=== PATIENT | female | born 1990 | race American Indian/Alaskan Native ===

== ENCOUNTER 2016-07-29 18:13 | Emergency (ER) | payer SELFPAY ==
[2016-07-29 18:58] VITALS: BP 114/67
[2016-07-29 19:15] LABS: Basophils % (Auto) 0.6 % (0.0-1.8); Eosinophils % (Auto) 1.5 % (0.0-4.3); Hematocrit 32.3 % (30.3-42.9); Hemoglobin 10.7 gm/dl (10.1-14.3); Mean Corpuscular HGB Conc 33 % (30-34); Mean Corpuscular Hemoglobin 28 pg (28-32); Mean Corpuscular Volume 84 fl (79-97); Platelet Count 203 K/mm3 (140-440); Red Blood Count 3.85 M/mm3 (3.65-5.03); Red Cell Distribution Width 14.3 % (13.2-15.2); White Blood Count 6.9 K/mm3 (4.5-11.0)
[2016-07-29 19:44] LABS: Albumin 3.9 g/dL (3.9-5); Albumin/Globulin Ratio 1.2 %; Alkaline Phosphatase 53 units/L (35-129); Anion Gap 18 mmol/L; Blood Urea Nitrogen 7 mg/dL (7-17); Calcium 8.8 mg/dL (8.4-10.2); Carbon Dioxide 23 mmol/L (22-30); Chloride 98.9 mmol/L (98-107); Glucose 155 mg/dL (65-100); Lipase 16 units/L (13-60); Potassium 3.7 mmol/L (3.6-5.0); Sodium 136 mmol/L (137-145); Total Protein 7.2 g/dL (6.3-8.2)
[2016-07-29 19:47] LABS: Alanine Aminotransferase < 5 units/L (7-56)
--- NOTE | 2016-07-30 00:49 | Emergency Department Report ---
ED General Adult HPI - General Chief complaint: Abdominal Pain Stated complaint: ABD PAIN Source: patient, RN notes reviewed, old records reviewed Mode of arrival: Ambulatory Limitations: No Limitations - History of Present Illness Initial comments: This is a 25-year-old female. She is previously unknown to me. She does not have a local primary care doctor. She reports a past medical history of diabetes and sickle cell trait. She is 5, para 2. Last menstrual period is at the end of May. She thinks it is June 13. The patient presents to the ER with right lower back pain, intermittent suprapubic and left lower quadrant pain. This has been present for one week. The pain is achy. It increases with palpation and decreases with rest. No fevers or chills. No chest pain or shortness of breath. No irritative or obstructive urinary symptoms. No vaginal discharge. Positive constipation. She declines pain medication this time. She reports that her pain is "not so bad right now." She reports taking a positive home test. -: Gradual Location: back, abdomen Quality: aching Consistency: intermittent Improves with: rest Worsens with: movement Associated Symptoms: denies: confusion, chest pain, cough, diaphoresis, fever/ chills, headaches, loss of appetite, malaise, shortness of breath, syncope, weakness - Related Data Previous Rx's Medication Instructions Recorded Last Taken Type Insulin NPH/Regular [NovoLIN 70/30] 28 unit SUB-Q BIDDIAB #100 ml 03/17/1302/24 Rx Insulin Regular, Human [HumuLIN R] 0 unit SQ ACHS #100 ml 03/17/13 02/24/13 Rx Insulin NPH/Regular [NovoLIN 70/30] 35 unit SUB-Q QPMDIAB 30 Days 04/25/13 Unknown Rx Insulin NPH/Regular [NovoLIN 70/30] 42 unit SUB-Q QDDIAB 30 Days 04/25/13 Unknown Rx Doxylamine/Pyridoxine HCl 1 each PO QHS PRN #30 tablet. 07/30/16 Unknown Rx [Dicmax Null 10-10 mg Tablet] Nitrofurantoin Glasscock/M-Cryst 100 mg PO Q12HR #14 capsule 07/30/16 Unknown Rx [Macrobid CAP] Vit W-Ca,Fe,FA(<1 mg) 1 each PO QDAY #30 tablet 07/30/16 Unknown Rx [ Vitamins] Allergies Allergy/AdvReac Type Severity Reaction Status Date / Time No Known Allergies Allergy Verified 03/14/13 21:33 ED Review of Systems ROS: Stated complaint: ABD PAIN Other details as noted in HPI Constitutional: denies: fever Eyes: denies: vision change ENT: denies: epistaxis Respiratory: denies: cough Cardiovascular: denies: chest pain Gastrointestinal: abdominal pain Genitourinary: denies: urgency, dysuria Musculoskeletal: back pain Skin: denies: rash, lesions Neurological: denies: headache, weakness Psychiatric: denies: anxiety ED Past Medical Hx - Past Medical History Previous Medical History?: Yes Hx Hypertension: No Hx Heart Attack/AMI: No Hx Congestive Heart Failure: No Hx Diabetes: Yes (ran out of insulin) Hx Deep Vein Thrombosis: No Hx Pulmonary Embolism: No Hx GERD: No Hx Liver Disease: No Hx Renal Disease: No Hx Sickle Cell Disease: No (Sicle cell trait) Hx Arthritis: No Hx Headaches / Migraines: No Hx Seizures: No Hx Kidney Stones: No Hx Asthma: No Hx COPD: No Hx Tuberculosis: No Hx Dementia: No Hx HIV: No Additional medical history: sickle cell trait - Surgical History Past Surgical History?: Yes Hx Coronary Stent: No Hx Open Heart Surgery: No Hx Pacemaker: No Hx Internal Defibrillator: No Hx Cholecystectomy: No Hx Appendectomy: No Hx Breast Surgery: No Additional Surgical History: x2 - Social History Smoking Status: Never Smoker - Medications Home Medications: Home Medications Medication Instructions Recorded Confirmed Last Taken Type Insulin NPH/Regular [NovoLIN 70/30] 28 unit SUB-Q BIDDIAB #100 ml 03/17/1304/2102/24/13 Rx Insulin Regular, Human [HumuLIN R] 0 unit SQ ACHS #100 ml 03/17/13 04/21/1304/08 Rx Insulin NPH/Regular [NovoLIN 70/30] 35 unit SUB-Q QPMDIAB 30 Days 04/25/13 Unknown Rx Insulin NPH/Regular [NovoLIN 70/30] 42 unit SUB-Q QDDIAB 30 Days 04/25/13 Unknown Rx Doxylamine/Pyridoxine HCl 1 each PO QHS PRN #30 tablet. 07/30/16 Unknown Rx [Abelardo Null 10-10 mg Tablet] Nitrofurantoin Glasscock/M-Cryst 100 mg PO Q12HR #14 capsule 07/30/16 Unknown Rx [Macrobid CAP] Vit W-Ca,Fe,FA(<1 mg) 1 each PO QDAY #30 tablet 07/30/16 Unknown Rx [ Vitamins] ED Physical Exam - General Limitations: No Limitations General appearance: alert, in no apparent distress - Head Head exam: Present: atraumatic, normocephalic - Eye Eye exam: Present: normal appearance, EOMI. Absent: nystagmus - ENT ENT exam: Present: normal exam, normal orophraynx, mucous membranes moist, normal external ear exam - Neck Neck exam: Present: normal inspection, full ROM. Absent: tenderness, meningismus - Respiratory Respiratory exam: Present: normal lung sounds bilaterally. Absent: respiratory distress, wheezes, rales, rhonchi, stridor, chest wall tenderness, accessory muscle use, decreased breath sounds, prolonged expiratory - Cardiovascular Cardiovascular Exam: Present: regular rate, normal rhythm, normal heart sounds. Absent: bradycardia, tachycardia, irregular rhythm, systolic murmur, diastolic murmur, rubs, gallop - GI/Abdominal GI/Abdominal exam: Present: soft, normal bowel sounds, other (no rebound, guarding or peritoneal signs. Negative psoas sign, negative Rovsing sign). Absent: distended, tenderness, guarding, rebound, rigid, pulsatile mass - External exam: Present: normal external exam Speculum exam: Present: normal speculum exam Bi-manual exam: Present: normal bi-manual exam, other (escorted by CELESTINO Cortez) . Absent: cervical motion tendernes, adnexal tenderness, adnexal mass - Extremities Exam Extremities exam: Present: normal inspection, full ROM, normal capillary refill. Absent: tenderness, pedal edema, joint swelling, calf tenderness - Back Exam Back exam: Present: normal inspection, full ROM. Absent: tenderness, CVA tenderness (R), CVA tenderness (L), muscle spasm, paraspinal tenderness, vertebral tenderness - Neurological Exam Neurological exam: Present: alert, oriented X3, normal gait, other (Extraocular movements intact. Tongue midline. No facial droop. Facial sensation intact to light touch in the V1, V2, V3 distribution bilaterally. 5 and 5 strength in 4 extremities.. Sensation is intact to light touch in 4 extremities.). Absent : motor sensory deficit - Psychiatric Psychiatric exam: Present: normal affect, normal mood - Skin Skin exam: Present: warm, dry, intact, normal color. Absent: rash ED Course Vital Signs 07/29/16 18:55 Temperature 98.6 F Pulse Rate 66 Respiratory 18 Rate Blood Pressure 114/67 O2 Sat by Pulse 100 Oximetry - Reevaluation(s) Reevaluation #1: 07/30/16 01:04 differential diagnosis: , urinary tract infection, constipation, ovarian cyst Assessment and plan: The 25-year-old female who was incidentally found to be , with 1 week of nonspecific abdominal pain, there is no right lower quadrant tenderness, rebound or guarding, she is afebrile with reassuring vital signs, indicates that she is not wanting pain medicine at this time. Given all this, I think appendicitis or surgical emergency is very unlikely. My bedside ultrasound demonstrates a probable gestational sac. Her quantitative hCG is pending. Type and screen ordered, urinalysis pending, transvaginal ultrasound pending. Reevaluation #2: 07/30/16 01:53 Transvaginal ultrasound demonstrates intrauterine , no hemorrhages noted, therefore this patient does not require RhoGAM therapy. Patient feels okay, abdomen soft on repeat examination. Reevaluation #3: 07/30/16 02:03 urinalysis suggests urinary tract infection. Macrobid ordered. ED Medical Decision Making - Lab Data Result diagrams: 07/29/16 19:04 07/29/16 19:04 Vital Signs 07/29/16 18:55 Temperature 98.6 F Pulse Rate 66 Respiratory 18 Rate Blood Pressure 114/67 O2 Sat by Pulse 100 Oximetry Labs 07/29/16 07/29/16 07/29/16 19:04 19:04 19:04 WBC 6.9 RBC 3.85 Hgb 10.7 Hct 32.3 MCV 84 MCH 28 MCHC 33 RDW 14.3 Plt Count 203 Lymph % (Auto) 29.1 Glasscock % (Auto) 5.4 Eos % (Auto) 1.5 Baso % (Auto) 0.6 Lymph # 2.0 Glasscock # 0.4 Eos # 0.1 Baso # 0.0 Seg Neutrophils % 63.4 Seg Neutrophils # 4.4 Sodium 136 L Potassium 3.7 Chloride 98.9 Carbon Dioxide 23 Anion Gap 18 BUN 7 Creatinine 0.7 Estimated GFR > 60 BUN/Creatinine Ratio 10.00 Glucose 155 H Calcium 8.8 Total Bilirubin 0.50 AST 8 ALT < 5 L Alkaline Phosphatase 53 Total Protein 7.2 Albumin 3.9 Albumin/Globulin Ratio 1.2 Lipase 16 HCG, Qual Positive - Radiology Data Radiology results: report reviewed, image reviewed Transvaginal ultrasound demonstrates intrauterine , heartbeat 141 bpm, ovarian cyst noted, no obvious bleeding. Critical care attestation.: If time is entered above; I have spent that time in minutes in the direct care of this critically ill patient, excluding procedure time. ED Disposition Clinical Impression: Disposition: DISCHARGED TO HOME OR SELFCARE Is pt being admited?: No Does the pt Need Aspirin: No Condition: Stable Instructions: (ED) Additional Instructions: Take the medications as directed. Follow up with the any of the gynecology specialist within the next week to initiate care. Return to the ER right away with fevers or chills, chest pain or shortness of breath, intractable nausea or vomiting, inability to tolerate liquid feeds, new, worsening or different symptoms. Prescriptions: Doxylamine/Pyridoxine HCl [Abelardo Null 10-10 mg Tablet] 1 each PO QHS PRN #30 tablet. PRN Reason: Nausea Nitrofurantoin Glasscock/M-Cryst [Macrobid CAP] 100 mg PO Q12HR #14 capsule Vit W-Ca,Fe,FA(<1 mg) [ Vitamins] 1 each PO QDAY #30 tablet Referrals: PRIMARY [facility]EM[facility] [Primary Care Provider] - 3-5 Days [facility] [Provider Group] - 3-5 Days [facility] [Provider Group] - 3-5 Days [facility] [Provider Group] - 3-5 Days
--- NOTE | 2016-07-30 01:49 | Ultrasound Report ---
FINAL REPORT PROCEDURE: US OB TRANSVAGINAL TECHNIQUE: Real-time transabdominal and transvaginal sonography of the uterus, placenta, amniotic fluid, adnexa, and fetus was performed with image documentation. Measurements were obtained to determine age/size. M-mode Doppler was used to document heartbeat. CPT 99727 and 32359 HISTORY: abd pain COMPARISON: No prior studies are available for comparison. FINDINGS: ADDITIONAL GESTATION: None. CRL: 12 mm, which corresponds to a gestational age of: 7 weeks, 3 days. Yolk Sac: Normal. Embryonic Cardiac Activity: 141 beats per minute Gestational Sac: Normal. Amniotic fluid: Normal. Cervix: Normal. Right Ovary: Normal. Left Ovary: There is a dominant cyst measuring 2.4 centimeters Estimated delivery date: 03/15/2017 Uterus and adnexa: Normal. IMPRESSION: 1. Single live intrauterine gestation at approximately 7 weeks, 3 days. 2. EDC by US 03/15/2017 3. Complete anatomic survey at 18-20 weeks suggested.
--- NOTE | 2016-07-30 01:50 | Ultrasound Report ---
FINAL REPORT PROCEDURE: US OB transabdominal and transvaginal TECHNIQUE: Real-time transabdominal and transvaginal sonography of the uterus, placenta, amniotic fluid, adnexa, and fetus was performed with image documentation. Measurements were obtained to determine age/size. M-mode Doppler was used to document heartbeat. CPT 16083 and 07370 HISTORY: abd pain COMPARISON: No prior studies are available for comparison. FINDINGS: ADDITIONAL GESTATION: None. CRL: 12 mm, which corresponds to a gestational age of: 7 weeks, 3 days. Yolk Sac: Normal. Embryonic Cardiac Activity: 141 beats per minute Gestational Sac: Normal. Amniotic fluid: Normal. Cervix: Normal. Right Ovary: Normal. Left Ovary: There is a dominant cyst measuring 2.4 centimeters Estimated delivery date: 03/15/2017 Uterus and adnexa: Normal. IMPRESSION: 1. Single live intrauterine gestation at approximately 7 weeks, 3 days. 2. EDC by US 03/15/2017 3. Complete anatomic survey at 18-20 weeks suggested.
[2016-07-30 01:56] LABS: Bacteria,Urine 1+ /HPF (Negative); Bilirubin,Urine NEG (Negative); Blood,Urine NEG (Negative); Ketones,Urine NEG (Negative); Leukocyte Esterase,Urine MOD (Negative); Nitrite,Urine POS (Negative); Protein,Urine <15 mg/dL mg/dL (Negative); Urobilinogen,Urine < 2.0 mg/dL (<2.0)
== END 2016-07-30 02:21 | disposition home or self-care (01) ==
LOC: ED 18:13
DX: O26.891 Other specified pregnancy related conditions, first trimester (principal); M54.5 Low back pain; R10.32 Left lower quadrant pain; E11.9 Type 2 diabetes mellitus without complications; Z3A.01 Less than 8 weeks gestation of pregnancy; Z79.4 Long term (current) use of insulin
CPT/HCPCS: 36415; 76801; 76817; 80053; 81001; 83690; 84702; 84703; 85025; 86850; 86900; 86901

== ENCOUNTER 2016-08-18 13:26 | Emergency (ER) | payer SELFPAY ==
[2016-08-18 14:05] LABS: Basophils % (Auto) 0.3 % (0.0-1.8); Eosinophils % (Auto) 1.5 % (0.0-4.3); Hematocrit 30.3 % (30.3-42.9); Hemoglobin 10.4 gm/dl (10.1-14.3); Mean Corpuscular HGB Conc 34 % (30-34); Mean Corpuscular Hemoglobin 29 pg (28-32); Mean Corpuscular Volume 83 fl (79-97); Platelet Count 169 K/mm3 (140-440); Red Blood Count 3.64 M/mm3 (3.65-5.03); Red Cell Distribution Width 14.7 % (13.2-15.2); White Blood Count 7.6 K/mm3 (4.5-11.0)
[2016-08-18 14:21] LABS: Alanine Aminotransferase 6 units/L (7-56); Albumin 3.8 g/dL (3.9-5); Albumin/Globulin Ratio 1.1 %; Alkaline Phosphatase 44 units/L (35-129); Anion Gap 18 mmol/L; BUN/Creatinine Ratio 13.33; Blood Urea Nitrogen 8 mg/dL (7-17); Carbon Dioxide 21 mmol/L (22-30); Chloride 101.4 mmol/L (98-107); Glucose 162 mg/dL (65-100); Lipase 16 units/L (13-60); Potassium 3.6 mmol/L (3.6-5.0); Sodium 137 mmol/L (137-145); Total Protein 7.2 g/dL (6.3-8.2)
[2016-08-18 14:36] LABS: Bacteria,Urine 3+ /HPF (Negative); Bilirubin,Urine NEG (Negative); Blood,Urine NEG (Negative); Ketones,Urine TR mg/dL (Negative); Leukocyte Esterase,Urine SM (Negative); Mucus,Urine FEW /HPF; Nitrite,Urine NEG (Negative); Protein,Urine <15 mg/dL mg/dL (Negative)
--- NOTE | 2016-08-18 16:42 | Ultrasound Report ---
Transabdominal OB ultrasound. History: Nausea and vomiting. Findings: There is a single intrauterine with a crown-rump length measuring 3.3 cm corresponding to a gestational age of 10 weeks one day. The heart rate is 163 beats per minute. There is no evidence of subchorionic hemorrhage. The right ovary is normal. There is a 2.4 cm in diameter cyst within the left ovary. There is no fluid within the cul-de-sac. Impression: 1. Viable IUP at 10 weeks one day gestational age. 2. 2.4 cm left ovarian cyst.
--- NOTE | 2016-08-18 19:23 | Emergency Department Report ---
ED Female HPI - General Chief complaint: Vaginal Bleeding Stated complaint: PREG/HAVING SHARP PAINS Time Seen by Provider: 08/18/16 19:30 Source: patient, family Mode of arrival: Ambulatory Limitations: No Limitations - History of Present Illness Initial comments: Patient here complaining that approximately 2 months and complained of vaginal spotting on and off since last week she denies any spotting at present. Also complaining that she wasn't feeling well while at work since do that. Reports mid abdominal pain off and on times a few days. The vomiting diarrhea or fever. Denies care. [id number] medication taken. She reports urinary burning and frequency. Denies any vaginal discharge. MD Complaint: vaginal bleeding, dysuria, pelvic pain Onset/Timin -: week(s) Radiation: non-radiating Severity scale (0 -10): 0 Quality: cramping (she reports when she is having pain it's cramping pain) Consistency: intermittent Are you Now?: Yes Last Menstrual Period: 06/13/16 EDC: 03/20/17 Associated Symptoms: vaginal bleeding (off-and-on spotting), abdominal pain ( off and on), dysuria. denies: vaginal discharge, nausea/vomiting, fever/chills , headaches, loss of appetite, hematuria, rash, seizure, shortness of breath, syncope, weakness - Related Data Sexually active: Yes Previous Rx's Medication Instructions Recorded Last Taken Type Cephalexin [Keflex] 500 mg PO Q12HR #14 cap 08/18/16 Unknown Rx Vit-Fe Fumar-FA [ 1 tab PO QDAY #30 tablet 08/18/16 Unknown Rx Vitamin] metroNIDAZOLE [Flagyl] 500 mg PO Q12HR #14 tab 08/18/16 Unknown Rx Allergies Allergy/AdvReac Type Severity Reaction Status Date / Time No Known Allergies Allergy Verified 08/18/16 13:33 ED Review of Systems ROS: Stated complaint: PREG/HAVING SHARP PAINS Other details as noted in HPI Comment: All other systems reviewed and negative Constitutional: denies: chills, fever ENT: denies: throat pain Respiratory: no symptoms reported Cardiovascular: denies: chest pain, palpitations, edema, syncope Genitourinary: dysuria, frequency. denies: urgency, hematuria, discharge, dyspareunia Musculoskeletal: denies: back pain, arthralgia Skin: denies: rash Neurological: denies: headache, weakness, numbness, paresthesias, confusion, abnormal gait, vertigo ED Past Medical Hx - Past Medical History Previous Medical History?: Yes Hx Hypertension: No Hx Heart Attack/AMI: No Hx Congestive Heart Failure: No Hx Diabetes: Yes (bld sugar today is 168) Hx Deep Vein Thrombosis: No Hx Pulmonary Embolism: No Hx GERD: No Hx Liver Disease: No Hx Renal Disease: No Hx Sickle Cell Disease: No (Sickle cell trait) Hx Arthritis: No Hx Headaches / Migraines: No Hx Seizures: No Hx Kidney Stones: No Hx Asthma: No Hx COPD: No Hx Tuberculosis: No Hx Dementia: No Hx HIV: No Additional medical history: sickle cell trait - Surgical History Past Surgical History?: No Hx Coronary Stent: No Hx Open Heart Surgery: No Hx Pacemaker: No Hx Internal Defibrillator: No Hx Cholecystectomy: No Hx Appendectomy: No Hx Breast Surgery: No Additional Surgical History: x2 - Family History Family history: diabetes, hypertension - Social History Smoking Status: Never Smoker Substance Use Type: None - Medications Home Medications: Home Medications Medication Instructions Recorded Confirmed Last Taken Type Cephalexin [Keflex] 500 mg PO Q12HR #14 cap 08/18/16 Unknown Rx Vit-Fe Fumar-FA [ 1 tab PO QDAY #30 tablet 08/18/16 Unknown Rx Vitamin] metroNIDAZOLE [Flagyl] 500 mg PO Q12HR #14 tab 08/18/16 Unknown Rx ED Physical Exam - General Limitations: No Limitations General appearance: alert, in no apparent distress - Head Head exam: Present: atraumatic, normocephalic, normal inspection - Eye Eye exam: Present: normal appearance, PERRL, EOMI. Absent: periorbital swelling , periorbital tenderness Pupils: Present: normal accommodation - ENT ENT exam: Present: normal exam, normal orophraynx, mucous membranes moist, TM's normal bilaterally, normal external ear exam - Neck Neck exam: Present: normal inspection, full ROM. Absent: tenderness, meningismus, lymphadenopathy - Respiratory Respiratory exam: Present: normal lung sounds bilaterally. Absent: respiratory distress, chest wall tenderness - Cardiovascular Cardiovascular Exam: Present: regular rate, normal rhythm, normal heart sounds - GI/Abdominal GI/Abdominal exam: Present: soft, normal bowel sounds. Absent: distended, tenderness, guarding, rebound, rigid - External exam: Present: normal external exam. Absent: erythema, swelling, lesions, lacerations, ecchymosis, bleeding Speculum exam: Present: vaginal discharge, cervical discharge. Absent: erythema , vaginal bleeding, foreign body, tissue, laceration Bi-manual exam: Absent: cervical motion tendernes, adnexal tenderness, adnexal mass - Expanded Exam Expanded Female exam: Absent: vaginal laceration, tissue present in vagina, herpetic lesions, vulvar erythema, vulvar tenderness, foreign body External exam: Present: normal Amniotic fluid: Present: none Speculum exam: Present: cervical OS closed, vaginal discharge. Absent: vaginal bleeding - Extremities Exam Extremities exam: Present: normal inspection, full ROM, normal capillary refill. Absent: tenderness, pedal edema, joint swelling, calf tenderness - Back Exam Back exam: Present: normal inspection, full ROM. Absent: tenderness, CVA tenderness (R), CVA tenderness (L), muscle spasm, paraspinal tenderness, vertebral tenderness, rash noted - Neurological Exam Neurological exam: Present: alert, oriented X3, normal gait - Psychiatric Psychiatric exam: Present: normal affect, normal mood - Skin Skin exam: Present: warm, dry, intact, normal color. Absent: rash ED Course Vital Signs 08/18/16 13:39 Temperature 98.3 F Pulse Rate 81 Respiratory 17 Rate Blood Pressure 120/84 O2 Sat by Pulse 100 Oximetry Vital Signs 08/18/16 08/18/16 13:39 22:03 Temperature 98.3 F 98.3 F Pulse Rate 81 76 Respiratory 17 16 Rate Blood Pressure 120/84 Blood Pressure 103/64 [Left] O2 Sat by Pulse 100 98 Oximetry - Reevaluation(s) Reevaluation #1: 08/18/16 22:10 Pelvic exam done and wet prep showed the patient positive for Trichomonas and clue cells and negative for yeast. Chlamydia pending. Small bladder infection. Discussed case with patient and told her her results. Told her that she needs to tell her partner that she is treated for Trichomonas as he will also need to be tested and treated. Patient also up to be treated in emergency room for gonorrhea and chlamydia. Given Rocephin 1 g IM in emergency room to treat urinary tract infection and gonorrhea, also given a Zithromax by 1 g by mouth to treat chlamydia and will be discharged home with Flagyl. Reevaluation #2: 08/18/16 22:26 Patient tolerated up was used in the emergency room without any nausea or vomiting. ED Medical Decision Making - Lab Data Result diagrams: 08/18/16 13:45 08/18/16 13:45 Lab Results 08/18/16 08/18/16 08/18/16 Range/Units 13:36 13:45 13:45 WBC 7.6 (4.5-11.0) K/mm3 RBC 3.64 L (3.65-5.03) M/mm3 Hgb 10.4 (10.1-14.3) gm/dl Hct 30.3 (30.3-42.9) % MCV 83 (79-97) fl MCH 29 (28-32) pg MCHC 34 (30-34) % RDW 14.7 (13.2-15.2) % Plt Count 169 (140-440) K/mm3 Lymph % (Auto) 27.0 (13.4-35.0) % Dawson % (Auto) 6.3 (0.0-7.3) % Eos % (Auto) 1.5 (0.0-4.3) % Baso % (Auto) 0.3 (0.0-1.8) % Lymph # 2.1 (1.2-5.4) K/mm3 Dawson # 0.5 (0.0-0.8) K/mm3 Eos # 0.1 (0.0-0.4) K/mm3 Baso # 0.0 (0.0-0.1) K/mm3 Seg Neutrophils % 64.9 (40.0-70.0) % Seg Neutrophils # 4.9 (1.8-7.7) K/mm3 Sodium 137 (137-145) mmol/L Potassium 3.6 (3.6-5.0) mmol/L Chloride 101.4 (98-107) mmol/L Carbon Dioxide 21 L (22-30) mmol/L Anion Gap 18 mmol/L BUN 8 (7-17) mg/dL Creatinine 0.6 L (0.7-1.2) mg/dL Estimated GFR > 60 ml/min BUN/Creatinine Ratio 13.33 % Glucose 162 H (65-100) mg/dL POC Glucose 168 H (70-105) Calcium 9.0 (8.4-10.2) mg/dL Total Bilirubin 0.40 (0.1-1.2) mg/dL AST 10 (5-40) units/L ALT 6 L (7-56) units/L Alkaline Phosphatase 44 (35-129) units/L Total Protein 7.2 (6.3-8.2) g/dL Albumin 3.8 L (3.9-5) g/dL Albumin/Globulin Ratio 1.1 % Lipase 16 (13-60) units/L HCG, Quant (0-4) mIU/mL Urine Color (Yellow) Urine Turbidity (Clear) Urine pH (5.0-7.0) Ur Specific [place] (1.003-1.030) Urine Protein (Negative) mg/dL Urine Glucose (UA) (Negative) mg/dL Urine Ketones (Negative) mg/dL Urine Blood (Negative) Urine Nitrite (Negative) Urine Bilirubin (Negative) Urine Urobilinogen (<2.0) mg/dL Ur Leukocyte Esterase (Negative) Urine WBC (Auto) (0.0-6.0) /HPF Urine RBC (Auto) (0.0-6.0) /HPF Urine Bacteria (Auto) (Negative) /HPF Urine Mucus /HPF Blood Type Antibody Screen AURA Antibody Screen 08/18/16 08/18/16 08/18/16 Range/Units 13:45 13:45 14:08 WBC (4.5-11.0) K/mm3 RBC (3.65-5.03) M/mm3 Hgb (10.1-14.3) gm/dl Hct (30.3-42.9) % MCV (79-97) fl MCH (28-32) pg MCHC (30-34) % RDW (13.2-15.2) % Plt Count (140-440) K/mm3 Lymph % (Auto) (13.4-35.0) % Dawson % (Auto) (0.0-7.3) % Eos % (Auto) (0.0-4.3) % Baso % (Auto) (0.0-1.8) % Lymph # (1.2-5.4) K/mm3 Dawson # (0.0-0.8) K/mm3 Eos # (0.0-0.4) K/mm3 Baso # (0.0-0.1) K/mm3 Seg Neutrophils % (40.0-70.0) % Seg Neutrophils # (1.8-7.7) K/mm3 Sodium (137-145) mmol/L Potassium (3.6-5.0) mmol/L Chloride (98-107) mmol/L Carbon Dioxide (22-30) mmol/L Anion Gap mmol/L BUN (7-17) mg/dL Creatinine (0.7-1.2) mg/dL Estimated GFR ml/min BUN/Creatinine Ratio % Glucose (65-100) mg/dL POC Glucose (70-105) Calcium (8.4-10.2) mg/dL Total Bilirubin (0.1-1.2) mg/dL AST (5-40) units/L ALT (7-56) units/L Alkaline Phosphatase (35-129) units/L Total Protein (6.3-8.2) g/dL Albumin (3.9-5) g/dL Albumin/Globulin Ratio % Lipase (13-60) units/L HCG, Quant 44005 H (0-4) mIU/mL Urine Color Yellow (Yellow) Urine Turbidity Clear (Clear) Urine pH 6.0 (5.0-7.0) Ur Specific [place] 1.015 (1.003-1.030) Urine Protein <15 mg/dl (Negative) mg/dL Urine Glucose (UA) Neg (Negative) mg/dL Urine Ketones Tr (Negative) mg/dL Urine Blood Neg (Negative) Urine Nitrite Neg (Negative) Urine Bilirubin Neg (Negative) Urine Urobilinogen 4.0 (<2.0) mg/dL Ur Leukocyte Esterase Sm (Negative) Urine WBC (Auto) 22.0 H (0.0-6.0) /HPF Urine RBC (Auto) 5.0 (0.0-6.0) /HPF Urine Bacteria (Auto) 3+ (Negative) /HPF Urine Mucus Few /HPF Blood Type O POSITIVE Antibody Screen TNR AURA Antibody Screen Negative Urine culture pending Wet prep positive for Trichomonas and clue cells and negative for yeast Area and chlamydia is pending. - Radiology Data Radiology results: report reviewed OB ultrasound shows friable intrauterine at 10 weeks and 1 day gestational age. heart rate is at 163 bpm. There is no evidence of subchorionic hemorrhage. 2.4 cm left ovarian cyst. RT Ovaries normal. - Medical Decision Making ED course: I discussed ultrasound result with patient and told her that she needs to follow up with TERRITORY ACCOUNT REPRESENTATIVE and I will work her refer her to TERRITORY ACCOUNT REPRESENTATIVE . I also discussed with patient that she has a left ovarian cyst. I discussed the patient that her lab work was within normal limits and her urine shows that she has a small bladder infection which will be treated with antibiotic. I discussed with her that she is positive for Trichomonas and bacterial vaginosis and I also gave her the option to be treated empirically for gonorrhea and chlamydia and patient chose to be treated in emergency room. I discussed this case with Dr. Williamson and he is okay with patient being discharged home with Flagyl which will cover her bacterial vaginosis and Trichomonas. Given Rocephin 1 g IM in emergency room to treat urinary tract infection and gonorrhea , azithromycin 1 g by mouth to treat chlamydia. Patient discharged home with her significant other with prescription for Keflex to treat urinary tract infection and Flagyl to treat BV and Trichomonas. Catheter that she can call in the morning to schedule an appointment for follow-up visit with Lazara Galvan who is stone processing machine operator for T[employer] ACCOUNT REPRESENTATIVE. Patient voiced understanding of diagnosis and treatment plan and the need to follow-up. Discharge home with her significant other with prescription for Keflex, Flagyl and vitamin. Critical care attestation.: If time is entered above; I have spent that time in minutes in the direct care of this critically ill patient, excluding procedure time. ED Disposition Clinical Impression: Bacterial vaginosis, Acute cystitis without hematuria, Abdominal pain during in first trimester, Trichomonas infection, Concern about sexually transmitted disease in female without diagnosis, Threatened miscarriage in early , Vaginal spotting, Left ovarian cyst Disposition: DISCHARGED TO HOME OR SELFCARE Is pt being admited?: No Does the pt Need Aspirin: No Condition: Stable Instructions: Bacterial Vaginosis (ED), Urinary Tract Infection in Women (ED), Trichomoniasis (ED), Safe Sex (ED), Sexually Transmitted Diseases (ED), Abdominal Pain in (ED), Threatened Miscarriage (ED), Ovarian Cyst (ED ) Additional Instructions: Please call TERRITORY ACCOUNT REPRESENTATIVE's office in the morning to schedule an appointment. Take Medication as prescribed. remembered the tiny partner that you're treated for Trichomonas in the emergency room. These increase your fluid intake. Practice safe sex Prescriptions: Cephalexin [Keflex] 500 mg PO Q12HR #14 cap metroNIDAZOLE [Flagyl] 500 mg PO Q12HR #14 tab Vit-Fe Fumar-FA [ Vitamin] 1 tab PO QDAY #30 tablet Referrals: MARIAMA GALVAN MD [Staff Physician] - 08/19/16 Forms: STI Treatment and Prevention, Accompanied Note, Work/School Release Form (ED)
[2016-08-18] MEDS ORDERED: ROCEPHIN IM STA (21:34)
[2016-08-18] MEDS ORDERED: XYLOCAINE 1% MPF 5 mL INFILTRATI ONE (21:35)
[2016-08-18] MEDS ORDERED: ZITHROMAX PO ONE (21:35)
[2016-08-18 22:03] VITALS: BP 103/64
== END 2016-08-18 22:33 | disposition home or self-care (01) ==
LOC: ED 13:26
DX: O20.0 Threatened abortion (principal); O26.851 Spotting complicating pregnancy, first trimester; O98.311 Other infections with a predominantly sexual mode of transmission complicating pregnancy, first trimester; A59.01 Trichomonal vulvovaginitis; O23.11 Infections of bladder in pregnancy, first trimester; N30.00 Acute cystitis without hematuria; E11.9 Type 2 diabetes mellitus without complications; Z3A.10 10 weeks gestation of pregnancy
CPT/HCPCS: 36415; 76801; 76817; 80053; 81001; 82962; 83690; 84702; 85025; 86850; 86900; 86901; 87086; 87210; 87591; 96372; 99284; J0696; 87076; 87186

== ENCOUNTER 2016-09-22 23:19 | Emergency (ER) | payer SELFPAY ==
[2016-09-23 00:47] LABS: Basophils % (Auto) 0.5 % (0.0-1.8); Eosinophils % (Auto) 2.2 % (0.0-4.3); Hematocrit 29.6 % (30.3-42.9); Hemoglobin 9.8 gm/dl (10.1-14.3); Mean Corpuscular HGB Conc 33 % (30-34); Mean Corpuscular Hemoglobin 28 pg (28-32); Mean Corpuscular Volume 86 fl (79-97); Platelet Count 149 K/mm3 (140-440); Red Blood Count 3.45 M/mm3 (3.65-5.03); Red Cell Distribution Width 15.2 % (13.2-15.2); White Blood Count 6.6 K/mm3 (4.5-11.0)
[2016-09-23 01:10] LABS: Alanine Aminotransferase 7 units/L (7-56); Albumin 3.3 g/dL (3.9-5); Albumin/Globulin Ratio 1.1 %; Alkaline Phosphatase 39 units/L (35-129); Anion Gap 16 mmol/L; BUN/Creatinine Ratio 11.66; Blood Urea Nitrogen 7 mg/dL (7-17); Calcium 8.4 mg/dL (8.4-10.2); Carbon Dioxide 25 mmol/L (22-30); Chloride 103.7 mmol/L (98-107); Glucose 82 mg/dL (65-100); Potassium 3.3 mmol/L (3.6-5.0); Sodium 141 mmol/L (137-145); Total Protein 6.4 g/dL (6.3-8.2)
[2016-09-23 02:23] LABS: Bilirubin,Urine NEG (Negative); Blood,Urine NEG (Negative); Ketones,Urine NEG (Negative); Leukocyte Esterase,Urine SM (Negative); Nitrite,Urine NEG (Negative); Protein,Urine <15 mg/dL mg/dL (Negative)
[2016-09-23 03:58] VITALS: BP 116/62
--- NOTE | 2016-09-23 04:00 | Emergency Department Report ---
ED Abdominal Pain HPI - General Chief Complaint: Abdominal Pain Stated Complaint: ABD PAIN Time Seen by Provider: 09/23/16 03:53 Source: patient Mode of arrival: Ambulatory Limitations: No Limitations - History of Present Illness Initial Comments: Pt is a 25 yr old F with a h/o DM and sickle cell trait, at approximately 15 weeks gestation who presents with 1 day history of mild intermittent abdominal cramping and dysuria. Pt reports she takes vitamins, but does not have care due to lack of insurance. Pt was seen here 1 month prior for a similar event, and patient has still not followed up with a provider. Otherwise no fevers, chills, LINDSEY, NVD, CP, SOB, trauma, falls, hematuria, back pain, vaginal fluid loss, vaginal bleeding, travel, or sick contacts Severity scale (0 -10): 0 - Related Data Previous Rx's Medication Instructions Recorded Last Taken Type Vit-Fe Fumar-FA [ 1 tab PO QDAY #30 tablet 08/18/16 09/23/16 Rx Vitamin] Nitrofurantoin [place]/M-Cryst 100 mg PO Q12HR #14 capsule 09/23/16 Unknown Rx [Macrobid CAP] Allergies Allergy/AdvReac Type Severity Reaction Status Date / Time No Known Allergies Allergy Verified 08/18/16 13:33 ED Review of Systems ROS: Stated complaint: ABD PAIN Other details as noted in HPI Comment: All other systems reviewed and negative ED Past Medical Hx - Past Medical History Previous Medical History?: Yes Hx Hypertension: No Hx Heart Attack/AMI: No Hx Congestive Heart Failure: No Hx Diabetes: Yes (bld sugar today is 168) Hx Deep Vein Thrombosis: No Hx Pulmonary Embolism: No Hx GERD: No Hx Liver Disease: No Hx Renal Disease: No Hx Sickle Cell Disease: Yes (Sickle cell trait) Hx Arthritis: No Hx Headaches / Migraines: No Hx Seizures: No Hx Kidney Stones: No Hx Asthma: No Hx COPD: No Hx Tuberculosis: No Hx Dementia: No Hx HIV: No Additional medical history: sickle cell trait - Surgical History Past Surgical History?: Yes Hx Coronary Stent: No Hx Open Heart Surgery: No Hx Pacemaker: No Hx Internal Defibrillator: No Hx Cholecystectomy: No Hx Appendectomy: No Hx Breast Surgery: No Additional Surgical History: x2 - Social History Smoking Status: Never Smoker Substance Use Type: None - Medications Home Medications: Home Medications Medication Instructions Recorded Confirmed Last Taken Type Vit-Fe Fumar-FA [ 1 tab PO QDAY #30 tablet 08/18/16 09/23/16 Rx Vitamin] Nitrofurantoin [place]/M-Cryst 100 mg PO Q12HR #14 capsule 09/23/16 Unknown Rx [Macrobid CAP] ED Physical Exam - General Limitations: No Limitations General appearance: alert, in no apparent distress - Head Head exam: Present: atraumatic, normocephalic - Eye Eye exam: Present: normal appearance - ENT ENT exam: Present: mucous membranes moist - Neck Neck exam: Present: normal inspection - Respiratory Respiratory exam: Present: normal lung sounds bilaterally. Absent: respiratory distress - Cardiovascular Cardiovascular Exam: Present: regular rate, normal rhythm. Absent: systolic murmur, diastolic murmur, rubs, gallop - GI/Abdominal GI/Abdominal exam: Present: soft, normal bowel sounds. Absent: distended, tenderness, guarding, rebound, rigid - Extremities Exam Extremities exam: Present: normal inspection, full ROM. Absent: tenderness - Back Exam Back exam: Present: normal inspection, full ROM. Absent: tenderness, CVA tenderness (R), CVA tenderness (L) - Neurological Exam Neurological exam: Present: alert, oriented X3 - Psychiatric Psychiatric exam: Present: normal affect, normal mood - Skin Skin exam: Present: warm, dry, intact, normal color. Absent: rash ED Course Vital Signs 09/22/16 09/23/16 23:57 03:58 Temperature 99.0 F 98.7 F Pulse Rate 91 H 70 Respiratory 18 16 Rate Blood Pressure 125/73 Blood Pressure 116/62 [Left] O2 Sat by Pulse 99 100 Oximetry ED Medical Decision Making - Lab Data Result diagrams: 09/23/16 00:22 09/23/16 00:22 - Radiology Data Radiology results: report reviewed OB ultrasound: Single living intrauterine gestation approximately 15 weeks and 5 days - Medical Decision Making Patient was seen here 08/18/16 and had an US OB done which showed she was 10 weeks gestation Results discussed with patient and copy given to patient. Pt c/o dysuria with small leuk esterase and WBC 6 in urine will preemptively treat for UTI since patient is Critical care attestation.: If time is entered above; I have spent that time in minutes in the direct care of this critically ill patient, excluding procedure time. ED Disposition Clinical Impression: Abdominal pain during , Dysuria, UTI (lower urinary tract infection) Disposition: - TO HOME OR SELFCARE Is pt being admited?: No Condition: Stable Instructions: Abdominal Pain (ED), Dysuria (ED), Urinary Tract Infection in Women (ED) Prescriptions: Nitrofurantoin [place]/M-Cryst [Macrobid CAP] 100 mg PO Q12HR #14 capsule Referrals: PRIMARY CARE,MD [Primary Care Provider] - 3-5 Days
--- NOTE | 2016-09-23 08:04 | Ultrasound Report ---
FINAL REPORT PROCEDURE: Obstetrical ultrasound, transabdominal evaluation, transvaginal evaluation of the cervix. TECHNIQUE: Real-time limited sonographic examination was performed for evaluation of size, position, heartbeat, fluid volume for each fetus with image documentation (1 or more fetuses). CPT 25593 HISTORY: abd pain COMPARISON: No prior studies are available for comparison. FINDINGS: MATERNAL Uterus: Within normal limits . Cervix length: 4.9 cm. Internal Os: Closed . FETUS IUP: Single living intrauterine . Position: Transverse. Placental position: Posterior, without previa . Amniotic fluid volume: Normal . Heart rate and rhythm: 159 BPM, Regular . anatomic survey: Not performed on this study. MEASUREMENTS BPD: 2.9 centimeter. HC: 11.4 centimeter. AC: 9.6 centimeter. FL: 2 centimeter. Mean Gestational Age (composite criteria): 15 weeks 5 days. Ratio biometry: Normal . Estimated Weight: grams. Interval growth: Appropriate . Estimated Due Date (earliest scan): 03/12/2017. IMPRESSION: 1. Single living intrauterine gestation at approximately 15 weeks 5 days. 2. EDC by US 03/12/2017.
--- NOTE | 2016-09-23 08:08 | Ultrasound Report ---
FINAL REPORT PROCEDURE: Obstetrical ultrasound, transabdominal evaluation, transvaginal evaluation of the cervix. TECHNIQUE: Real-time limited sonographic examination was performed for evaluation of size, position, heartbeat, fluid volume for each fetus with image documentation (1 or more fetuses). CPT 85905 HISTORY: abd pain COMPARISON: No prior studies are available for comparison. FINDINGS: MATERNAL Uterus: Within normal limits . Cervix length: 4.9 cm. Internal Os: Closed . FETUS IUP: Single living intrauterine . Position: Transverse. Placental position: Posterior, without previa . Amniotic fluid volume: Normal . Heart rate and rhythm: 159 BPM, Regular . anatomic survey: Not performed on this study. MEASUREMENTS BPD: 2.9 centimeter. HC: 11.4 centimeter. AC: 9.6 centimeter. FL: 2 centimeter. Mean Gestational Age (composite criteria): 15 weeks 5 days. Ratio biometry: Normal . Estimated Weight: grams. Interval growth: Appropriate . Estimated Due Date (earliest scan): 03/12/2017. IMPRESSION: 1. Single living intrauterine gestation at approximately 15 weeks 5 days. 2. EDC by US 03/12/2017.
== END 2016-09-23 06:25 | disposition home or self-care (01) ==
LOC: ED 23:19
DX: O23.42 Unspecified infection of urinary tract in pregnancy, second trimester (principal); E11.9 Type 2 diabetes mellitus without complications; Z3A.15 15 weeks gestation of pregnancy
CPT/HCPCS: 36415; 76805; 76817; 80053; 81001; 84703; 85025; 99284

== ENCOUNTER 2017-02-18 23:36 | Outpatient (CLI) | payer SELFPAY ==
[2017-02-19] MEDS: LACTATED RINGERS 1,000 ML IV SCH ×2 (01:16→03:10)
[2017-02-19] MEDS: BRETHINE SUB-Q SCH ×3 (01:16→02:39)
[2017-02-19 03:24] LABS: Urine Drugs of Abuse Note Disclamer
[2017-02-19 03:37] LABS: Bacteria,Urine 2+ /HPF (Negative); Bilirubin,Urine NEG (Negative); Blood,Urine NEG (Negative); Ketones,Urine NEG (Negative); Leukocyte Esterase,Urine LG (Negative); Mucus,Urine 2+ /HPF; Nitrite,Urine NEG (Negative); Protein,Urine <15 mg/dL mg/dL (Negative)
[2017-02-19 04:03] VITALS: BP 109/70
== END 2017-02-19 06:16 | disposition home or self-care (01) ==
LOC: TRG 23:36
PROVIDERS: ATTEND Obstetrics & Gynecology
DX: O26.893 Other specified pregnancy related conditions, third trimester (principal); M54.9 Dorsalgia, unspecified; O47.1 False labor at or after 37 completed weeks of gestation; O24.313 Unspecified pre-existing diabetes mellitus in pregnancy, third trimester; E11.9 Type 2 diabetes mellitus without complications; Z3A.38 38 weeks gestation of pregnancy
CPT/HCPCS: 80307; 81001; 82962; 96360; 96361; 96372; J3105; J7120

== ENCOUNTER 2017-02-24 11:12 | Inpatient (IN) | payer OTHER ==
[2017-02-24] MEDS ORDERED: LACTATED RINGERS 1,000 ML IV ONE (15:08)
[2017-02-24 15:10] LABS: Basophils % (Auto) 0.6 % (0.0-1.8); Eosinophils % (Auto) 1.5 % (0.0-4.3); Hematocrit 28.4 % (30.3-42.9); Hemoglobin 9.5 gm/dl (10.1-14.3); Mean Corpuscular HGB Conc 33 % (30-34); Mean Corpuscular Hemoglobin 28 pg (28-32); Mean Corpuscular Volume 84 fl (79-97); Platelet Count 128 K/mm3 (140-440); Red Blood Count 3.39 M/mm3 (3.65-5.03); Red Cell Distribution Width 15.3 % (13.2-15.2); White Blood Count 5.1 K/mm3 (4.5-11.0)
[2017-02-24 15:52] LABS: HIV-1 Antigen p24 Non React (Non React); HIVR-1/2 Ab Non React (Non React)
--- NOTE | 2017-02-24 17:50 | History and Physical Report ---
History of Present Illness Date of examination: 02/24/17 Date of admission: 02/24/17 15:07 Chief complaint: Contractions History of present illness: Pt is a 26yo BF EDC 03/02/17; EGA 39 1/7 weeks presents to [facility] complaining of RUC's q 3-4 mins. She had 2 previous C Sections and desires a repeat C Section. She received late care in [place], but none here in [place], and is an IDDM taking Insulin NPH 42/ Reg 22 Q AM; and NPH 16/ Reg 16 Q PM Past History Past Medical History: diabetes (IDDM) Past Surgical History: section (x2) Family/Genetic History: none Social history: no significant social history - Obstetrical History Expected Date of Delivery: 03/02/17 Actual Gestation: 39 Week(s) 1 Day(s) : 5 Medications and Allergies Allergies Allergy/AdvReac Type Severity Reaction Status Date / Time No Known Allergies Allergy Verified 08/18/16 13:33 Home Medications Medication Instructions Recorded Confirmed Last Taken Type Vit-Fe Fumar-FA [ 1 tab PO QDAY #30 tablet 08/18/16 09/23/16 Rx Vitamin] Nitrofurantoin [place]/M-Cryst 100 mg PO Q12HR #14 capsule 09/23/16 Unknown Rx [Macrobid CAP] Ferrous Sulfate [Feosol 325 MG tab] 325 mg PO BID #60 tablet 02/24/17 Unknown Rx HYDROcodone/APAP 5-325 [[place]win 1 each PO Q6HR PRN #30 tablet 02/24/17 Unknown Rx 5/325] Ibuprofen [Motrin] 800 mg PO Q8HR PRN #30 tablet 02/24/17 Unknown Rx Vit Calc,Iron,Folic 1 each PO DAILY #30 tablet 02/24/17 Unknown Rx [ Vitamins] Review of Systems All systems: negative - Vital Signs Vital signs: Vital Signs Pulse Pulse Ox 65 100 02/24/17 11:21 02/24/17 11:21 Temp Pulse Resp BP Pulse Ox 98.2 F 74 18 99 02/24/17 11:34 02/24/17 12:38 02/24/17 11:34 02/24/17 12:38 - Physical Exam Breasts: Positive: deferred Cardiovascular: Regular rate Lungs: Positive: Clear to auscultation Abdomen: Positive: normal appearance Genitourinary (Female): Positive: normal external genitalia Uterus: Positive: enlarged Extremities: Positive: normal - Obstetrical FHR: category 1 Uterine Contraction Monitor Mode: External Results Result Diagrams: 02/24/17 14:50 Abnormal lab results 02/24/17 02/24/17 Range/Units 11:38 14:50 RBC 3.39 L (3.65-5.03) M/mm3 Hgb 9.5 L (10.1-14.3) gm/dl Hct 28.4 L (30.3-42.9) % RDW 15.3 H (13.2-15.2) % Plt Count 128 L (140-440) K/mm3 [place] % (Auto) 8.8 H (0.0-7.3) % POC Glucose 147 H (70-105) All other labs normal. Assessment and Plan - Patient Problems (1) 39 weeks gestation of Onset Date: 02/24/17 Current Visit: Yes Status: Acute Plan to address problem: A: IUP @ 39 1/7 weeks in labor Previous C Section x2 IDDM - stable Suspected macrosomia P: Admit to L&D for repeat C Section Obtain records and labs (2) Previous delivery affecting Onset Date: 02/24/17 Current Visit: Yes Status: Acute (3) Type 2 diabetes mellitus Onset Date: 02/24/17 Current Visit: No Status: Acute Qualifiers: Diabetes mellitus complication status: without complication Diabetes mellitus residential insulin use: with terminal system operator use Qualified Code(s): E11.9 - Type 2 diabetes mellitus without complications; Z79.4 - [facility] (current) use of insulin; Z79.4 - terminal system operator (current) use of insulin; Z79.4 - [facility] ( current) use of insulin; Z79.4 - [facility] (current) use of insulin
[2017-02-24] MEDS ORDERED: PEPCID IV ONE (17:51)
[2017-02-24] MEDS ORDERED: BICITRA PO ONE (17:51)
[2017-02-24] MEDS ORDERED: REGLAN IV ONE (17:51)
[2017-02-24] MEDS ORDERED: MORPHINE IV PRN (17:54)
[2017-02-24] MEDS ORDERED: PHENERGAN PO PRN (17:54)
[2017-02-24] MEDS ORDERED: PHENERGAN PR PRN (17:54)
[2017-02-24] MEDS ORDERED: NARCAN 0.4 MG/1 ML IV PRN ×2 (17:54→19:26)
[2017-02-24] MEDS ORDERED: ZOFRAN IV PRN (17:54)
--- NOTE | 2017-02-24 17:54 | Anesthesia Consultation ---
Anesthesia Consult and Med Hx Date of service: 02/24/17 - Airway Anesthetic Teeth Evaluation: Good ROM Head & Neck: Adequate Mental/Hyoid Distance: Adequate Mallampati Class: Class II Intubation Access Assessment: Good - Pulmonary Exam CTA: Yes - Cardiac Exam Cardiac Exam: No Murmur - Pre-Operative Health Status ASA Pre-Surgery Classification: ASA2 Proposed Anesthetic Plan: Epidural - Pulmonary Hx Smoking: No Hx Asthma: No SOB: No COPD: No Hx Pneumonia: No Hx Sleep Apnea: No - Cardiovascular System Hx Hypertension: No Hx Coronary Artery Disease: No Hx Heart Attack/AMI: No Hx Angina: No Hx Percutaneous Transluminal Coronary Angioplasty (PTCA): No Hx Pacemaker: No Hx Internal Defibrillator: No Hx Valvular Heart Disease: No Hx Heart Murmur: No Hx Peripheral Vascular Disease: No - Central Nervous System Hx Seizures: No CVA: No Hx Back Pain: No Hx Psychiatric Problems: No - Gastrointestinal Hx Ulcer: No - Endocrine Hx Renal Disease: No Hx End Stage Renal Disease: No Hx Cirrhosis: No Hx Liver Disease: No Hx Hypothyroidism: No Hx Hyperthyroidism: No - Hematic Hx Anemia: No Hx Sickle Cell Disease: Yes (trait) - Other Systems Hx Alcohol Use: No Hx Substance Use: No Hx Cancer: No Hx Obesity: No
[2017-02-24] MEDS ORDERED: MORPHINE ONE (17:59)
[2017-02-24] MEDS ORDERED: LACTATED RINGERS 1,000 ML IV SCH (18:00)
[2017-02-24] MEDS ORDERED: PITOCin/NS 20 UNIT/1000ML DRIP 20 UNITS/1,000 ML BAG IV SCH ×2 (18:00→20:00)
[2017-02-24] MEDS ORDERED: fentaNYL-BUPIV 2 MCG/ML-0.125% 200 MCG/100 ML BAG EPIDURAL SCH (18:00)
[2017-02-24] MEDS ORDERED: SODIUM CHLORIDE FLUSH SYRINGE 10 ML IV NR ×2 (18:00→20:00)
[2017-02-24] MEDS ORDERED: ANCEF/STERILE WATER 2 GM/20 ML 2 GM/20 ML SYRINGE IV NR (18:00)
[2017-02-24] MEDS ORDERED: NACL 0.9% IR ONE (18:05)
[2017-02-24] MEDS ORDERED: WATER FOR IRRIG STERILE IR ONE (18:05)
[2017-02-24] MEDS ORDERED: TORADOL ONE (18:39)
[2017-02-24] MEDS ORDERED: NEO SYNEPHRINE ONE (18:41)
--- NOTE | 2017-02-24 19:22 | Operative Report ---
Operative Report Operative Report: Date of procedure: 02/24/2017 Pre-operative diagnosis: 1. Intrauterine at 39-1/7 weeks in labor 2. Previous 2 3. Insulin-dependent diabetes mellitus 4. Suspected macrosomia 5. Insufficient care Post-operative diagnosis: Same Procedure name(s): Repeat low transverse section Surgeon: Derian Galvan MD Scheduling Clerk: None Anesthesia: Spinal anesthesia by a Dr. Gray EBL: 600 mL's Findings: A 5163 g male infant Apgars 6 at 1 minute and 8 at 5 minutes. Clear amniotic fluid. Normal uterus. Normal tubes and ovaries bilaterally. Procedure: After the patient was prepped and draped in usual sterile fashion, and after satisfactory level of epidural anesthesia was obtained, the skin knife was used to make a transverse skin incision through the previous skin scars. The incision was excised down to layer of the fascia, which was nicked in the midline and extended laterally using the Bovie cautery. The rectus muscles were dissected off the rectus fascia both superiorly and inferiorly. The rectus bellies in the midline, and the peritoneum was entered under direct visualization. The peritoneal incision was extended superiorly and inferiorly. A bladder flap was created and the bladder blade was then placed. The uterus was scored in a curvilinear linear fashion, entered in the midline revealing copious clear amniotic fluid. The 's head was delivered onto the surgical field, and the oropharynx and nasopharynx were bulb suctioned. The rest of the 's body was delivered, cord was doubly clamped and cut and the infant was handed to the waiting respiratory team. Cord blood was then obtained. The placenta was manually removed from the uterus , and the uterus removed from its normal anatomical position. After gentle uterine lavage, the incision was inspected and found to be without extensions. It was then closed in 2 layers using 0 Vicryl suture in a running interlocking fashion, the second layer imbricating the first. After good hemostasis was achieved, copious amounts or irrigation was performed, and the gutters were suctioned free of blood and blood clots. The Tisseel sealant was sprayed across the uterine incision. The uterus was then returned to its normal anatomical position, and after excellent hemostasis assured, the peritoneum was re-approximated using 3-0 Vicryl suture in a running interlocking fashion, and then the rectus muscles were re-approximated using 3-0 Vicryl suture in a figure -of-eight configuration. The fascia was then re-approximated using 0 Vicryl suture in running interlocking fashion. The subcutaneous layer was made hemostatic using Bovie cautery, the Tisseel sealant was sprayed across the fascial incision and the skin edges re-approximated using 4-0 Vicryl suture in a sub-cuticular fashion. Patient tolerated the procedure well was transported to recovery in stable condition.
[2017-02-24] MEDS ORDERED: SENOKOT PO PRN (19:26)
[2017-02-24] MEDS ORDERED: TYLENOL PO PRN (19:26)
[2017-02-24] MEDS ORDERED: MYLICON PO PRN (19:26)
[2017-02-24] MEDS ORDERED: TORADOL IV PRN (19:26)
[2017-02-24] MEDS ORDERED: TUCKS PAD TP PRN (19:26)
[2017-02-24] MEDS ORDERED: MILK OF MAGNESIA PO PRN (19:26)
[2017-02-24] MEDS ORDERED: NORCO 5/325 PO PRN (19:26)
[2017-02-24] MEDS ORDERED: D50W (25GM) Syringe IV PRN (19:33)
[2017-02-24] MEDS ORDERED: ceFAZolin 1 GM in NACL 0.9% 20 ML IV SCH (20:00)
[2017-02-24] MEDS ORDERED: ANCEF/NS 1 GM/50 ML 1 GM/50 ML BAG IV SCH (20:00)
[2017-02-24] MEDS ORDERED: D5LR 1,000 ML IV SCH (20:00)
[2017-02-25] MEDS ORDERED: ceFAZolin 1 GM in NACL 0.9% 20 ML IV SCH ×2 (02:00→08:00)
[2017-02-25 06:30] LABS: Hematocrit 26.1 % (30.3-42.9); Hemoglobin 8.7 gm/dl (10.1-14.3)
[2017-02-25] MEDS: BENADRYL PO PRN ×2 (09:33→17:17)
--- NOTE | 2017-02-25 12:40 | Progress Note ---
Assessment and Plan A: /postop day 1 S/P low transverse section. Anemia. P: Advance diet as tolerated. Supplement with iron. Encourage ambulation. Subjective - Subjective Date of service: 02/25/17 Principal diagnosis: /postop day 1 S/P delivery Interval history: Patient is doing well. Baby is in NICU for blood sugars. Patient has had Carty catheter removed. She has not yet been up to ambulate. Patient reports small amount of lochia with no large clots. Patient denies headache, chest pain, cough , shortness of breath, abdominal pain, leg pain, heavy vaginal bleeding, or any other problems. She has not passed gas yet. Patient reports: appetite normal, voiding normally, pain well controlled, no flatus, no nauseated : doing well, in NICU Objective - Vital Signs Latest vital signs: Vital Signs Temp Pulse Resp BP BP Pulse Ox 02/25/17 10:20 98.7 F 61 18 103/66 97 02/25/17 05:05 18 02/25/17 04:00 98.3 F 57 L 17 119/79 100 02/25/17 00:48 97.9 F 59 L 17 95/59 100 02/25/17 00:10 97.5 F L 50 L 18 94/57 100 02/24/17 21:25 97.5 F L 50 L 18 94/57 100 02/24/17 20:30 54 L 11 L 120/75 100 02/24/17 20:20 52 L 22 123/72 100 02/24/17 20:15 55 L 22 114/75 100 02/24/17 20:10 62 21 124/59 100 02/24/17 20:00 53 L 15 112/68 100 02/24/17 19:50 54 L 15 110/69 100 02/24/17 19:45 57 L 16 116/72 100 02/24/17 19:40 54 L 14 116/70 100 02/24/17 19:30 53 L 15 111/69 100 02/24/17 19:25 55 L 17 120/75 100 02/24/17 19:22 97.7 F 59 L 15 110/76 98 02/24/17 19:20 11 L 100 02/24/17 12:38 74 99 Intake and Output 02/24/17 02/25/17 02/25/17 23:59 07:59 15:59 Intake Total 1300 150 Output Total 900 200 Balance 400 -50 Intake: IV 1300 Intake, Free Water 150 Output: Urine 900 Uretheral (Carty) 300 Stool 200 Other: Total, Output Amount 200 Estimated Blood Loss 600 - Exam Cardiovascular: Present: Regular rate, Normal S1, Normal S2 Lungs: Present: Clear to auscultation Abdomen: Present: normal appearance, soft, normal bowel sounds. Absent: distention, tenderness, guarding, rigidity Uterus: Present: normal, firm, fundal height below umbilicus. Absent: bogginess , tenderness Extremities: Present: normal. Absent: tenderness, edema Incision: Present: normal, dry, intact, dressed - Labs Labs: Abnormal lab results 02/24/17 02/24/17 02/25/17 Range/Units 14:50 21:47 06:17 RBC 3.39 L (3.65-5.03) M/mm3 Hgb 9.5 L 8.7 L (10.1-14.3) gm/dl Hct 28.4 L 26.1 L (30.3-42.9) % RDW 15.3 H (13.2-15.2) % Plt Count 128 L (140-440) K/mm3 [place] % (Auto) 8.8 H (0.0-7.3) % POC Glucose 126 H (70-105)
[2017-02-25] MEDS ORDERED: Fluarix Quad 2017-2018(36 MOS+ IM ONE (14:06)
[2017-02-25] MEDS: PERCOCET 5/325 PO PRN (16:25)
[2017-02-25] MEDS ORDERED: BOOSTRIX IM ONE (19:30)
[2017-02-25] MEDS ORDERED: M-M-R II VACCINE SUB-Q ONE (19:30)
[2017-02-25] MEDS: MOTRIN PO PRN (22:31)
[2017-02-26] MEDS: PERCOCET 5/325 PO PRN ×2 (05:26→16:59)
[2017-02-26] MEDS ORDERED: BOOSTRIX IM ONE (06:00)
[2017-02-26] MEDS: MOTRIN PO PRN ×2 (09:25→17:01)
[2017-02-26] MEDS: FEOSOL PO SCH (09:26)
[2017-02-26] MEDS: PRENATAL VITAMIN PO SCH (09:27)
--- NOTE | 2017-02-26 11:17 | Progress Note ---
Assessment and Plan A: /postop day 2 S/P LTCS. Anemia. P: Encouraged patient to ambulate more today. Continue iron supplementation. Anticipate discharge tomorrow if patient continues to do well. Subjective - Subjective Date of service: 02/26/17 Principal diagnosis: /postop day 2 S/P delivery Interval history: /postop day 2. Patient is doing well. Baby is in NICU but doing well. Patient is voiding without difficulty and ambulating well. She is tolerating food without nausea or vomiting. She reports she is passing gas. Patient reports small amount of lochia with no large clots. Patient denies headache, chest pain, cough, shortness of breath, abdominal pain, leg pain, heavy vaginal bleeding, or any other problems. Patient reports: appetite normal, voiding normally, pain well controlled, flatus , ambulating normally [place]: doing well, in NICU Objective - Vital Signs Latest vital signs: Vital Signs Temp Pulse Resp BP BP Pulse Ox 02/26/17 09:00 98.4 F 81 20 104/73 02/26/17 01:09 98.2 F 78 112/67 100 02/25/17 16:30 98.8 F 60 18 115/71 100 02/25/17 16:25 20 Intake and Output 02/25/17 02/26/17 02/26/17 23:59 07:59 15:59 Intake Total 240 240 Output Total 500 Balance -500 240 240 Intake: Oral 240 240 Output: Urine 500 Void 500 Other: Total, Intake Amount 240 240 Total, Output Amount 500 # Voids Void 1 - Exam Cardiovascular: Present: Regular rate, Normal S1, Normal S2 Lungs: Present: Clear to auscultation Abdomen: Present: normal appearance, soft, normal bowel sounds (bowel sounds times 4, hypoactive). Absent: distention, tenderness, guarding, rigidity Uterus: Present: normal, firm, fundal height below umbilicus. Absent: bogginess , tenderness Extremities: Present: normal. Absent: tenderness, edema Incision: Present: normal, dry, intact - Labs Labs: Abnormal lab results 02/25/17 02/25/17 02/25/17 Range/Units 10:18 11:48 16:45 POC Glucose 179 H 201 H 142 H (70-105) 02/25/17 Range/Units 22:27 POC Glucose 184 H (70-105)
[2017-02-27] MEDS: PERCOCET 5/325 PO PRN ×3 (07:15→19:51)
--- NOTE | 2017-02-27 17:56 | Progress Note ---
Assessment and Plan A: POD 3 - stable IDDM Anemia - asymptomatic P: Dr. Bonilla consulted due to elevated blood sugars and recommended to hold- off discharge and continue patient on sliding-scale reg insulin Continue iron therapy Anticipate discharge tomorrow Subjective - Subjective Date of service: 02/27/17 Principal diagnosis: /postop day 3 S/P delivery Patient reports: appetite normal, voiding normally, pain well controlled, flatus , ambulating normally [place]: in NICU Objective - Vital Signs Latest vital signs: Vital Signs Temp Pulse Resp BP BP Pulse Ox 02/27/17 16:27 98.6 F 73 18 110/71 100 02/27/17 07:38 98.7 F 80 18 113/71 99 02/27/17 00:15 98.6 F 86 18 118/78 Intake and Output 02/27/17 02/27/17 02/27/17 07:59 15:59 23:59 Intake Total 420 600 Balance 420 600 Intake: Oral 600 Intake, Free Water 420 Other: Total, Intake Amount 480 # Voids Void 1 1 - Exam Breasts: Present: deferred Cardiovascular: Present: Regular rate, Normal S1, Normal S2 Lungs: Present: Clear to auscultation, Normal air movement Abdomen: Present: normal appearance, soft Vulva: both: normal Uterus: Present: normal, firm, fundal height below umbilicus Extremities: Present: normal Deep Tendon Reflex Grade: Normal +2 Incision: Present: normal, dry, intact - Labs Labs: Abnormal lab results 02/26/17 02/27/17 02/27/17 Range/Units 22:40 07:12 13:24 POC Glucose 227 H 193 H 174 H (70-105) 02/27/17 Range/Units 17:04 POC Glucose 120 H (70-105)
[2017-02-27] MEDS: FEOSOL PO SCH (18:10)
[2017-02-27] MEDS: PRENATAL VITAMIN PO SCH (18:10)
[2017-02-28] MEDS: PERCOCET 5/325 PO PRN ×2 (05:29→16:19)
[2017-02-28] MEDS: PRENATAL VITAMIN PO SCH (11:42)
[2017-02-28] MEDS: MOTRIN PO PRN (11:42)
[2017-02-28] MEDS: FEOSOL PO SCH (11:42)
--- NOTE | 2017-02-28 11:55 | Progress Note ---
Assessment and Plan - Patient Problems (1) 39 weeks gestation of Current Visit: Yes Status: Acute (2) delivery delivered Current Visit: Yes Status: Acute Plan to address problem: Patient is being discharged home today. [place] and motrin given. She was told to F/U in one week in the office for wound check. (3) Type 2 diabetes mellitus Onset Date: 02/24/17 Current Visit: No Status: Acute Qualifiers: Diabetes mellitus complication status: without complication Diabetes mellitus terminal carman insulin use: with terminal carman use Qualified Code(s): E11.9 - Type 2 diabetes mellitus without complications; Z79.4 - snf (current) use of insulin; Z79.4 - snf (current) use of insulin; Z79.4 - snf ( current) use of insulin; Z79.4 - terminal carman (current) use of insulin Plan to address problem: Patient was asked to make appt to see a PCP in the area to manage her glucose. I told her that once the sliding scale is discontinued on discharge, she will need chronic management of her diabetes. She was given the number of providers in the area to call for an appt. In the meantime, she will follow up with [facility] in 1 week. (4) Anemia Current Visit: Yes Status: Acute Plan to address problem: Patient will continue iron BID. Subjective - Subjective Date of service: 02/28/17 Principal diagnosis: /postop day 3 S/P delivery Interval history: Patient is S/P repeat c/section, POD #4. She is a pre-gestational diabetic type 2 and was on insulin during the . Patient was on insulin before this but she has not been compliant until she became . She just moved from [place] and does not have a primary care doctor in the area. Today, she denies any complaint. She is tolerating regular diet well and has passed flatus. Her fasting glucose was 97. Her pre-meals glucose have been over 170 and she has been on a sliding scale. Objective - Vital Signs Vital Signs: Vital Signs - 12hr 02/28/17 02/28/17 02/28/17 00:15 05:29 06:20 Temperature 98.2 F Pulse Rate Respiratory 20 18 18 Rate Blood Pressure 123/72 [Left] O2 Sat by Pulse 100 Oximetry 02/28/17 08:04 Temperature 98.4 F Pulse Rate 66 Respiratory 20 Rate Blood Pressure 129/89 [Left] O2 Sat by Pulse 100 Oximetry - Exam Cardiovascular: Normal S1 Lungs: Clear to auscultation - Labs Labs: Abnormal Labs 02/24/17 02/24/17 02/24/17 11:38 14:50 21:47 RBC 3.39 L Hgb 9.5 L Hct 28.4 L RDW 15.3 H Plt Count 128 L [place] % (Auto) 8.8 H POC Glucose 147 H 126 H 02/25/17 02/25/17 02/25/17 06:17 10:18 11:48 RBC Hgb 8.7 L Hct 26.1 L RDW Plt Count [place] % (Auto) POC Glucose 179 H 201 H 02/25/17 02/25/17 02/26/17 16:45 22:27 17:11 RBC Hgb Hct RDW Plt Count [place] % (Auto) POC Glucose 142 H 184 H 113 H 02/26/17 02/27/17 02/27/17 22:40 07:12 13:24 RBC Hgb Hct RDW Plt Count [place] % (Auto) POC Glucose 227 H 193 H 174 H 02/27/17 02/27/17 17:04 22:55 RBC Hgb Hct RDW Plt Count [place] % (Auto) POC Glucose 120 H 178 H Laboratory Results - last 24 hr 02/27/17 02/27/17 02/27/17 13:24 17:04 22:55 POC Glucose 174 H 120 H 178 H
--- NOTE | 2017-02-28 12:03 | Discharge Summary ---
Providers - Providers Date of Admission: 02/24/17 15:07 Date of discharge: 02/28/17 Attending physician: ROSENDO SOLOMON MD Primary care physician: KAYLEY GOMEZ MD Hospitalization Delivery: Procedure: section baby: male Hospital course: Patient did well post op. She is tolerating her diet well and is ambulating without any complaint. She will F/U with Ground Crew[facility] in 1 week and PcP for diabetic management. Condition at discharge: Stable Disposition: DC-01 TO HOME OR SELFCARE - Discharge Diagnoses (1) 39 weeks gestation of Status: Acute (2) delivery delivered Status: Acute (3) Type 2 diabetes mellitus Status: Acute Qualifiers: Diabetes mellitus complication status: without complication Diabetes mellitus bed bug exterminator insulin use: with bed bug exterminator use Qualified Code(s): E11.9 - Type 2 diabetes mellitus without complications; Z79.4 - correction (current) use of insulin; Z79.4 - correction (current) use of insulin; Z79.4 - correction ( current) use of insulin; Z79.4 - correction (current) use of insulin (4) Anemia Status: Acute Plan - Discharge Medications Prescriptions: Ferrous Sulfate [Feosol 325 MG tab] 325 mg PO BID #60 tablet HYDROcodone/APAP 5-325 [[place] 5/325] 1 each PO Q6HR PRN #30 tablet PRN Reason: Pain Ibuprofen [Motrin] 800 mg PO Q8HR PRN #30 tablet PRN Reason: Moder Pain Unrelieved By [place] Vit Calc,Iron,Folic [ Vitamins] 1 each PO DAILY #30 tablet - Provider Discharge Summary Activity: no sex for 6 weeks, no heavy lifting 4 weeks, no strenuous exercise Diet: routine Instructions: other (See primary care doctor for diabetes.) Additional instructions: [] Smoking cessation referral if applicable(refer to patient education folder for contact #) [] Refer to [facility] Booklet Call your doctor immediately for: * Fever > 100.5 * Heavy vaginal bleeding ( >1 pad per hour) * Severe persistent headache * Shortness of breath * Reddened, hot, painful area to leg or breast * Drainage or odor from incision. * Keep incision clean and dry at all times and follow doctor's instructions regarding bathing/showering - Follow up plan Follow up: PRIMARY CAREMD [Primary Care Provider] - 7 Days
[2017-02-28 18:17] VITALS: BP 111/79
== END 2017-02-28 18:24 | disposition home or self-care (01) | DRG 766 ==
LOC: TRG 11:12 → APU 15:07 → OB 21:56
PROVIDERS: ADMIT Obstetrics & Gynecology; ATTEND Obstetrics & Gynecology
PROC: 10D00Z1 Extraction of Products of Conception, Low, Open Approach (ICD-10-PCS; principal; 2017-02-24)
PROC: 3E0234Z Introduction of Serum, Toxoid and Vaccine into Muscle, Percutaneous Approach (ICD-10-PCS; 2017-02-26)
DX: O34.211 Maternal care for low transverse scar from previous cesarean delivery (principal); O24.424 Gestational diabetes mellitus in childbirth, insulin controlled; O36.63X0 Maternal care for excessive fetal growth, third trimester, not applicable or unspecified; Z3A.39 39 weeks gestation of pregnancy; Z37.0 Single live birth; Z23 Encounter for immunization; Z79.4 Long term (current) use of insulin; O90.81 Anemia of the puerperium; D64.9 Anemia, unspecified
CPT/HCPCS: 36415; 82962; 85014; 85018; 85025; 86592; 86706; 86762; 86850; 86900; 86901; 87806; 88307; 90471; 90686; 90715; C9250; J0690; J1815; J1885; J2270; J2370; J2405; J2590; J2765; J7120; J7121

== ENCOUNTER 2018-04-08 03:06 | Inpatient (IN) | payer MEDICAID ==
[2018-04-08 04:06] LABS: Basophils % (Auto) 0.7 % (0.0-1.8); Eosinophils # (Auto) 0.1 K/mm3 (0.0-0.4); Eosinophils % (Auto) 1.8 % (0.0-4.3); Hematocrit 35.7 % (30.3-42.9); Hemoglobin 11.9 gm/dl (10.1-14.3); Lymphocytes # (Auto) 1.7 K/mm3 (1.2-5.4); Lymphocytes % (Auto) 27.7 % (13.4-35.0); Mean Corpuscular HGB Conc 33 % (30-34); Mean Corpuscular Volume 90 fl (79-97); Monocytes # (Auto) 0.4 K/mm3 (0.0-0.8); Platelet Count 224 K/mm3 (140-440); Red Blood Count 3.96 M/mm3 (3.65-5.03); Red Cell Distribution Width 13.2 % (13.2-15.2)
[2018-04-08 04:13] LABS: Bilirubin,Urine NEG (Negative); Blood,Urine NEG (Negative); Color,Urine Colorless (Yellow); Mucus,Urine FEW /HPF; Protein,Urine <15 mg/dL mg/dL (Negative); Urobilinogen,Urine < 2.0 mg/dL (<2.0)
[2018-04-08 04:15] LABS: BUN/Creatinine Ratio 6; Blood Urea Nitrogen 5 mg/dL (7-17); Calcium 9.1 mg/dL (8.4-10.2); Hemolysis Index 10
[2018-04-08] MEDS ORDERED: D50W (25GM) Syringe IV PRN (05:31)
[2018-04-08] MEDS ORDERED: NACL 0.9% 1000 ML 1,000 ML IV ONE (05:32)
[2018-04-08] MEDS ORDERED: ZOFRAN IV PRN (05:59)
[2018-04-08] MEDS ORDERED: SODIUM CHLORIDE FLUSH SYRINGE 10 ML IV PRN (05:59)
[2018-04-08] MEDS ORDERED: TYLENOL PO PRN (05:59)
[2018-04-08] MEDS ORDERED: D5/0.45NS 1,000 ML IV SCH (06:00)
[2018-04-08] MEDS ORDERED: HumuLIN R 100 UNITS in NACL 0.9% 99 ML IV SCH (06:00)
--- NOTE | 2018-04-08 06:07 | Emergency Department Report ---
HPI - General Chief Complaint: Hyperglycemia Time Seen by Provider: 04/08/18 03:47 - HPI HPI: 27-year-old female presents to the emergency department with the complaint of elevated blood sugar. Patient says that she has not been feeling well for the past 1-2 days which includes feeling fatigued, thirsty, urinating a lot. The patient has a history of diabetes for which she takes both metformin and Humalog. However she has not been using the insulin for the past few months and has been out of the metformin for the past few weeks. She does not have a primary care physician but says she has an appointment coming up next week at [facility]. No recent travel or sick contacts at home. ED Past Medical Hx - Past Medical History Hx Hypertension: No Hx Heart Attack/AMI: No Hx Congestive Heart Failure: No Hx Diabetes: Yes (type 2) Hx Deep Vein Thrombosis: No Hx Pulmonary Embolism: No Hx GERD: No Hx Liver Disease: No Hx Renal Disease: No Hx Sickle Cell Disease: Yes (trait) Hx Arthritis: No Hx Headaches / Migraines: No Hx Seizures: No Hx Kidney Stones: No Hx Asthma: No Hx COPD: No Hx Tuberculosis: No Hx Dementia: No Hx HIV: No Additional medical history: sickle cell trait - Surgical History Hx Coronary Stent: No Hx Open Heart Surgery: No Hx Pacemaker: No Hx Internal Defibrillator: No Hx Cholecystectomy: No Hx Appendectomy: No Hx Breast Surgery: No Additional Surgical History: x3 - Social History Smoking Status: Never Smoker Substance Use Type: None - Medications Home Medications: Home Medications Medication Instructions Recorded Confirmed Last Taken Type Vit-Fe Fumar-FA [ 1 tab PO QDAY #30 tablet 08/18/16 02/25/17 09/23/16 Rx Vitamin] Ferrous Sulfate [Feosol 325 MG tab] 325 mg PO BID #60 tablet 02/24/17 Unknown Rx HYDROcodone/APAP 5-325 [[place] 1 each PO Q6HR PRN #30 tablet 02/24/17 Unknown Rx 5/325] Ibuprofen [Motrin] 800 mg PO Q8HR PRN #30 tablet 02/24/17 Unknown Rx Vit Calc,Iron,Folic 1 each PO DAILY #30 tablet 02/24/17 Unknown Rx [ Vitamins] Insulin Lispro [HumaLOG VIAL] 10 units SQ AC #5 vial 03/16/18 Unknown Rx metFORMIN [Glucophage] 850 mg PO BID #60 tablet 03/16/18 Unknown Rx ED Review of Systems ROS: Stated complaint: GLUCOSE HIGH Other details as noted in HPI Comment: All other systems reviewed and negative Constitutional: weakness. denies: chills, fever Eyes: denies: eye pain, vision change ENT: denies: ear pain, throat pain Respiratory: denies: cough Cardiovascular: denies: chest pain, palpitations Endocrine: increased thirst, increased urine Gastrointestinal: denies: abdominal pain, vomiting Genitourinary: frequency. denies: dysuria Musculoskeletal: denies: back pain, arthralgia Skin: denies: rash, lesions Neurological: denies: headache, weakness Physical Exam - Physical Exam Vital Signs: Vital Signs 04/08/18 04/08/18 03:14 04:24 Temperature 98.0 F Pulse Rate 84 Respiratory 18 Rate Blood Pressure 113/69 O2 Sat by Pulse 100 100 Oximetry Physical Exam: GENERAL: The patient is well-developed well-nourished. HEENT: Normocephalic. Atraumatic. Patient has moist mucous membranes. EYES: Extraocular motions are intact. Pupils are equal and reactive to light bilaterally. NECK: Supple. Trachea is midline. CHEST/LUNGS: Clear to auscultation. There is no respiratory distress noted. HEART/CARDIOVASCULAR: Regular. There is no tachycardia. There is no obvious murmur. ABDOMEN: Abdomen is soft, nontender. Patient has normal bowel sounds. There is no abdominal distention. SKIN: Skin is warm and dry. NEURO: The patient is awake, alert, and oriented. The patient is cooperative. The patient has no focal neurologic deficits. The patient has normal speech. Cranial nerves II through XII grossly intact. MUSCULOSKELETAL: There is no tenderness or deformity. There is no limitation range of motion. There is no evidence of acute injury. ED Course Vital Signs 04/08/18 04/08/18 03:14 04:24 Temperature 98.0 F Pulse Rate 84 Respiratory 18 Rate Blood Pressure 113/69 O2 Sat by Pulse 100 100 Oximetry ED Medical Decision Making - Lab Data Result diagrams: 04/08/18 03:37 04/08/18 03:37 - Medical Decision Making Patient presents to the emergency department with hyperglycemia and medication noncompliance. She has a blood sugar of about 750 with some venous acidosis but no elevation in the anion gap. It appears more consistent with HHNK. Patient will receive IV fluid resuscitation and has been started on an insulin drip. She also has a urinary tract infection for which she was given a dose of Rocephin. Patient will be admitted to the hospital and has been accepted for admission by the hospitalist, Dr. Clemons. - Differential Diagnosis DKA, HHNK, Hypothyroid Critical Care Time: Yes Critical care time in (mins) excluding proc time.: 31 Critical care attestation.: If time is entered above; I have spent that time in minutes in the direct care of this critically ill patient, excluding procedure time. Critical care time was spent on this patient during her initial evaluation, multiple re- evaluations, ordering interpretation of labs and imaging. Critical Care Time: 31 minutes ED Disposition Clinical Impression: HHNC (hyperglycemic hyperosmolar nonketotic coma), Hyperglycemia, Noncompliance with medication regimen Disposition: OP ADMIT IP TO THIS HOSP Is pt being admited?: Yes Condition: Serious Instructions: Diabetes Mellitus Type 2 in Adults (ED) Referrals: PRIMARY CARE, [Primary Care Provider] - 3-5 Days Time of Disposition: 06:10
[2018-04-08 06:15] LABS: BUN/Creatinine Ratio 9; Blood Urea Nitrogen 6 mg/dL (7-17); Calcium 9.3 mg/dL (8.4-10.2); Hemolysis Index 9
--- NOTE | 2018-04-08 06:24 | History and Physical Report ---
History of Present Illness Date of examination: 04/08/18 History of present illness: 27-year-old woman with a history of diabetes comes emergency room because she did not feel well. Complaining of generalized weakness, fatigue, increased thirst, she had not taken her insulin since December. Patient said that she'll use in the motel, has no refrigerator to keep her insulin on and she has no supplies to check her blood sugar. Complaining of urinary frequency Review of systems Constitutional: no weight loss, chills, fever Ears, eyes, nose, mouth and throat: no nasal congestion, no nasal discharge, no sinus pressure, no vision change, no red eye. Neck: No neck pain or rigidity. Cardiovascular: no palpitations, chest pain Respiratory: no cough, shortness of breath Gastrointestinal: no hematochezia, abdominal pain Genitourinary : no no hematuria Musculoskeletal: no joint swelling or muscle ache Integumentary: no rash, no pruritis Neurological: no parathesias, no focal weakness Endocrine: no cold or heat intolerance, no polyuria or polydipsia Hematologic/Lymphatic: no easy bruising, no easy bleeding, no gland swelling Allergic/Immunologic: no urticaria, no angioedema. PAST MEDICAL HISTORY: Diabetes PAST SURGICAL HISTORY: None SOCIAL HISTORY: Denies alcohol, drugs, tobacco FAMILY HISTORY: Hypertension, diabetes Medications and Allergies Allergies Allergy/AdvReac Type Severity Reaction Status Date / Time No Known Allergies Allergy Verified 08/18/16 13:33 Home Medications Medication Instructions Recorded Confirmed Last Taken Type Vit-Fe Fumar-FA [ 1 tab PO QDAY #30 tablet 08/18/16 02/25/17 09/23/16 Rx Vitamin] Ferrous Sulfate [Feosol 325 MG tab] 325 mg PO BID #60 tablet 02/24/17 Unknown Rx HYDROcodone/APAP 5-325 [[place] 1 each PO Q6HR PRN #30 tablet 02/24/17 Unknown Rx 5/325] Ibuprofen [Motrin] 800 mg PO Q8HR PRN #30 tablet 02/24/17 Unknown Rx Vit Calc,Iron,Folic 1 each PO DAILY #30 tablet 02/24/17 Unknown Rx [ Vitamins] Insulin Lispro [HumaLOG VIAL] 10 units SQ AC #5 vial 03/16/18 Unknown Rx metFORMIN [Glucophage] 850 mg PO BID #60 tablet 03/16/18 Unknown Rx Active Meds: Active Medications Acetaminophen (Tylenol) 650 mg PO Q4H PRN PRN Reason: Pain MILD(1-3)/Fever >100.5/LINDSEY Dextrose (D50w (25gm) Syringe) 0 ml IV PRN PRN PRN Reason: Hypoglycemia Enoxaparin Sodium (Lovenox) 30 mg SUB-Q QDAY SARA Sodium Chloride (Nacl 0.9% 1000 Ml) 1,000 mls @ 999 mls/hr IV BOLUS ONE Stop: 04/08/18 06:32 Last Admin: 04/08/18 05:45 Dose: 999 mls/hr Documented by: Insulin Human Regular 100 (units/ Sodium Chloride) 100 mls @ 5 mls/hr IV TITR SARA; Protocol Dextrose/Sodium Chloride (D5/0.45ns) 1,000 mls @ 150 mls/hr IV DIRECT SARA Sodium Chloride (Nacl 0.9% 1000 Ml) 1,000 mls @ 150 mls/hr IV DIRECT SARA Ondansetron HCl (Zofran) 4 mg IV Q8H PRN PRN Reason: Nausea And Vomiting Sodium Chloride (Sodium Chloride Flush Syringe 10 Ml) 10 ml IV BID SARA Sodium Chloride (Sodium Chloride Flush Syringe 10 Ml) 10 ml IV PRN PRN PRN Reason: LINE FLUSH Exam - Physical Exam Narrative exam: General Apperance: The patient lying in bed, breathing comfortable HEENT: Normocephalic, atraumatic. Pupils equally round and reactive to light, EOMI, no sclericterus or JVD or thyromegaly or nodule. , no carotid bruit, mucous membranes dry, no exudate or erythema Heart: S1-S2, regular is rhythm Lungs: Clear to auscultation bilaterally, breathing comfortable Abdomen: Positive bowel sounds, soft, nontender, nondistended, no organomegaly Extremities: No edema cyanosis clubbing Skin: no rash, nodule, warm and dry Neuro: cranial nerves 2-12 intact, speech is fluent, motor/sensory intact - Constitutional Vitals: Temp Pulse Resp BP Pulse Ox 98.0 F 84 18 113/69 100 04/08/18 03:14 04/08/18 03:14 04/08/18 03:14 04/08/18 03:14 04/08/18 04:24 Results - Labs CBC & Chem 7: 04/08/18 03:37 04/08/18 05:34 Labs: Abnormal lab results 04/08/18 04/08/18 04/08/18 Range/Units 03:14 03:30 03:37 VBG pH (7.320-7.420) Sodium 130 L (137-145) mmol/L Chloride 90.2 L (98-107) mmol/L BUN 5 L (7-17) mg/dL Glucose 762 H* (65-100) mg/dL POC Glucose > 500 H (70-105) Urine WBC (Auto) 15.0 H (0.0-6.0) /HPF 04/08/18 04/08/18 Range/Units 03:37 05:34 VBG pH 7.297 L (7.320-7.420) Sodium 134 L (137-145) mmol/L Chloride 95.6 L (98-107) mmol/L BUN 6 L (7-17) mg/dL Glucose (65-100) mg/dL POC Glucose (70-105) Urine WBC (Auto) (0.0-6.0) /HPF Assessment and Plan Assessment HONK UTI Plan Admit to medicine Start DKA protocol with insulin drip, IV fluid Monitor serial chemistry, check hemoglobin A1c Start on IV Rocephin DVT prophylaxis
[2018-04-08] MEDS: ROCEPHIN/NS 1 GM/50 ML 1 GM/50 ML BAG IV SCH (07:15)
[2018-04-08] MEDS ORDERED: NACL 0.9% 1000 ML 1,000 ML ONE (07:47)
[2018-04-08 08:28] LABS: BUN/Creatinine Ratio 7; Blood Urea Nitrogen 5 mg/dL (7-17); Calcium 8.8 mg/dL (8.4-10.2); Hemolysis Index 8
[2018-04-08] MEDS: NACL 0.9% 1000 ML 1,000 ML IV SCH ×2 (09:05→17:54)
[2018-04-08] MEDS: LOVENOX SUB-Q SCH (10:28)
[2018-04-08] MEDS: SODIUM CHLORIDE FLUSH SYRINGE 10 ML IV SCH ×2 (10:28→22:47)
[2018-04-08] MEDS ORDERED: LOVENOX SUB-Q ONE (10:28)
[2018-04-08] MEDS ORDERED: DILAUDID ONE (11:19)
[2018-04-08] MEDS ORDERED: K-DUR PO ONE ×2 (11:23→11:53)
[2018-04-08] MEDS ORDERED: HumaLOG SUB-Q SCH (11:30)
--- NOTE | 2018-04-08 11:31 | Event Note ---
Date: 04/08/18 Patient seen and examined No acute event o/n, BG stable this am will stop insulin drip and D5Ns cont NS, start on diabetic diet, place on subqu insulin and cont to adjust dose as needed
[2018-04-08] MEDS: HumaLOG SUB-Q SCH ×2 (13:19→17:53)
[2018-04-08] MEDS ORDERED: HumaLOG SUB-Q ONE (13:19)
[2018-04-08 13:54] LABS: BUN/Creatinine Ratio 12; Blood Urea Nitrogen 6 mg/dL (7-17); Calcium 8.5 mg/dL (8.4-10.2); Hemolysis Index 8
--- NOTE | 2018-04-08 14:29 | Consultation ---
History of Present Illness Consult date: 04/01/18 Requesting physician: MAGALYS MARTE Reason for consult: other (DKA) Medications and Allergies Allergies Allergy/AdvReac Type Severity Reaction Status Date / Time No Known Allergies Allergy Verified 08/18/16 13:33 Home Medications Medication Instructions Recorded Confirmed Last Taken Type Vit-Fe Fumar-FA [ 1 tab PO QDAY #30 tablet 08/18/16 02/25/17 09/23/16 Rx Vitamin] Ferrous Sulfate [Feosol 325 MG tab] 325 mg PO BID #60 tablet 02/24/17 Unknown Rx HYDROcodone/APAP 5-325 [[place] 1 each PO Q6HR PRN #30 tablet 02/24/17 Unknown Rx 5/325] Ibuprofen [Motrin] 800 mg PO Q8HR PRN #30 tablet 02/24/17 Unknown Rx Vit Calc,Iron,Folic 1 each PO DAILY #30 tablet 02/24/17 Unknown Rx [ Vitamins] Insulin Lispro [HumaLOG VIAL] 10 units SQ AC #5 vial 03/16/18 Unknown Rx metFORMIN [Glucophage] 850 mg PO BID #60 tablet 03/16/18 Unknown Rx Active Meds: Active Medications Acetaminophen (Tylenol) 650 mg PO Q4H PRN PRN Reason: Pain MILD(1-3)/Fever >100.5/LINDSEY Dextrose (D50w (25gm) Syringe) 0 ml IV PRN PRN PRN Reason: Hypoglycemia Enoxaparin Sodium (Lovenox) 40 mg SUB-Q QDAY [facility] Last Admin: 04/08/18 10:28 Dose: 40 mg Documented by: Ferrous Sulfate (Feosol) 325 mg PO BID [facility] Sodium Chloride (Nacl 0.9% 1000 Ml) 1,000 mls @ 150 mls/hr IV DIRECT SARA Last Admin: 04/08/18 09:05 Dose: 150 mls/hr Documented by: Ceftriaxone Sodium (Rocephin/Ns 1 Gm/50 Ml) 1 gm in 50 mls @ 100 mls/hr IV Q24H [facility]; Protocol Last Admin: 04/08/18 07:15 Dose: 100 mls/hr Documented by: Insulin Human Lispro (Humalog) 0 unit SUB-Q ACHS [facility]; Protocol Last Admin: 04/08/18 13:19 Dose: 6 unit Documented by: Insulin Human NPH (Humulin N) 15 unit SUB-Q BIDDIAB [facility] Last Admin: 04/08/18 12:04 Dose: 15 unit Documented by: Ondansetron HCl (Zofran) 4 mg IV Q8H PRN PRN Reason: Nausea And Vomiting Sodium Chloride (Sodium Chloride Flush Syringe 10 Ml) 10 ml IV BID [facility] Last Admin: 04/08/18 10:28 Dose: 10 ml Documented by: Sodium Chloride (Sodium Chloride Flush Syringe 10 Ml) 10 ml IV PRN PRN PRN Reason: LINE FLUSH Physical Examination Vital signs: Vital Signs Temp Pulse Resp BP Pulse Ox 98.0 F 84 18 113/69 100 04/08/18 03:14 04/08/18 03:14 04/08/18 03:14 04/08/18 03:14 04/08/18 03:14 Results - Laboratory Findings CBC and BMP: 04/08/18 03:37 04/08/18 13:23 Abnormal lab findings: Abnormal Labs 04/08/18 04/08/18 04/08/18 03:14 03:30 03:37 VBG pH Sodium 130 L Potassium Chloride 90.2 L BUN 5 L Creatinine Glucose 762 H* POC Glucose > 500 H Hemoglobin A1c Urine WBC (Auto) 15.0 H 04/08/18 04/08/18 04/08/18 03:37 05:34 06:06 VBG pH 7.297 L Sodium 134 L Potassium Chloride 95.6 L BUN 6 L Creatinine Glucose 610 H* POC Glucose Hemoglobin A1c 14.4 H Urine WBC (Auto) 04/08/18 04/08/18 04/08/18 07:32 07:32 10:02 VBG pH Sodium Potassium 3.2 L Chloride BUN 5 L Creatinine Glucose 433 H 428 H POC Glucose 109 H Hemoglobin A1c Urine WBC (Auto) 04/08/18 04/08/18 04/08/18 11:13 13:13 13:23 VBG pH Sodium Potassium Chloride BUN 6 L Creatinine 0.5 L Glucose 247 H POC Glucose 163 H 263 H Hemoglobin A1c Urine WBC (Auto)
[2018-04-08 22:38] LABS: BUN/Creatinine Ratio 7; Blood Urea Nitrogen 4 mg/dL (7-17); Calcium 8.4 mg/dL (8.4-10.2); Hemolysis Index 11
[2018-04-08] MEDS: FEOSOL PO SCH (22:44)
[2018-04-09] MEDS: HumaLOG SUB-Q SCH ×4 (01:30→13:54)
[2018-04-09 06:30] LABS: BUN/Creatinine Ratio 6; Blood Urea Nitrogen 4 mg/dL (7-17); Calcium 8.5 mg/dL (8.4-10.2); Hemolysis Index 5
[2018-04-09] MEDS: ROCEPHIN/NS 1 GM/50 ML 1 GM/50 ML BAG IV SCH (07:51)
[2018-04-09] MEDS ORDERED: K-DUR PO ONE (10:27)
[2018-04-09] MEDS: FEOSOL PO SCH (11:39)
[2018-04-09] MEDS: LOVENOX SUB-Q SCH (11:39)
[2018-04-09] MEDS: SODIUM CHLORIDE FLUSH SYRINGE 10 ML IV SCH (11:44)
[2018-04-09] MEDS ORDERED: AFLURIA QUAD 2018-2019 SYRINGE IM ONE (12:00)
--- NOTE | 2018-04-09 12:34 | Discharge Summary ---
Providers - Providers Date of Admission: 04/08/18 05:59 Date of discharge: 04/09/18 Attending physician: MAGALYS MARTE 04/08/18 05:59 Consult to Physician [CONS] Routine Comment: aware at 0710 Consulting Provider: SOFI KENT Physician Instructions: Reason For Exam: cc Primary care physician: [employer] Hospitalization Condition: Serious Hospital course: 27-year-old woman with a history of diabetes came in emergency room because she did not feel well and Complaining of generalized weakness, fatigue, urinary frequency, increased thirst, she had not taken her insulin since December. In the ER her BG was 762, placed on iv fluid, insulin drip, monitored BG level. Her BG improved, d/kaushik insulin drip, placed on subqu insulin, replaced electrolytes and monitored, treated for UTI. She was tolerating diet, counseled for compliance. She was then discharged home in stable condition. Discharge diagnosis: HONK, BG was 762 on admission with normal HCO3, A1c 14.4 UTI, treated with abx DM type 2 on insulin hypokalemia, repleted Noncompliance, counseled Disposition: DC/TX-06 HOME UNDER HOME [facility] Time spent for discharge: 34 minutes Core Measure Documentation - Palliative Care Palliative Care/ Comfort Measures: Not Applicable - Core Measures Any of the following diagnoses?: none Exam - Constitutional Vitals: Temp Pulse Resp BP Pulse Ox 98.7 F 83 20 98/53 98 04/09/18 06:20 04/09/18 06:20 04/09/18 08:40 04/09/18 06:20 04/09/18 06:20 General appearance: Present: no acute distress, well-nourished - EENT Eyes: Present: PERRL ENT: hearing intact, clear oral mucosa - Neck Neck: Present: supple, normal ROM - Respiratory Respiratory effort: normal Respiratory: bilateral: CTA - Cardiovascular Heart Sounds: Present: S1 & S2. Absent: rub, click - Extremities Extremities: pulses symmetrical, No edema Peripheral Pulses: within normal limits - Abdominal General gastrointestinal: Present: soft, non-tender, non-distended, normal bowel sounds - Integumentary Integumentary: Present: clear, warm, dry - Musculoskeletal Musculoskeletal: gait normal, strength equal bilaterally - Psychiatric Psychiatric: appropriate mood/affect, intact judgment & insight - Neurologic Neurologic: CNII-XII intact, moves all extremities Plan Activity: advance as tolerated Weight Bearing Status: Weight Bear as Tolerated Diet: diabetic Special Instructions: record blood sugar diary Follow up with: PRIMARY CARE, [Primary Care Provider] - 3-5 Days Prescriptions: Ciprofloxacin HCl [Ciprofloxacin TAB] 500 mg PO Q12H #8 tab Ferrous Sulfate [Feosol 325 MG tab] 325 mg PO BID #60 tablet Insulin Lispro [HumaLOG VIAL] See Protocol SQ AC #10 ml Insulin NPH, Human [NovoLIN N] 18 unit SUB-Q BIDDIAB 30 Days units metFORMIN [Glucophage] 850 mg PO BID #60 tablet Other Discharge Orders: Glucometer supplies[Amb] Location: None Selected Glucometer (Amb) Location: None Selected
[2018-04-09 14:07] VITALS: BP 101/57
== END 2018-04-09 15:55 | disposition home or self-care (01) | DRG 689 ==
LOC: ED 03:06 → CC1 05:59 → 3A 14:34
PROVIDERS: ADMIT Internal Medicine; ATTEND Internal Medicine
DX: N39.0 Urinary tract infection, site not specified (principal); E11.00 Type 2 diabetes mellitus with hyperosmolarity without nonketotic hyperglycemic-hyperosmolar coma (NKHHC); E87.6 Hypokalemia; Z23 Encounter for immunization; Z79.84 Long term (current) use of oral hypoglycemic drugs; Z79.4 Long term (current) use of insulin; Z91.14 Patient's other noncompliance with medication regimen
CPT/HCPCS: 36415; 80048; 81001; 82805; 82947; 82962; 83036; 83735; 83930; 84100; 84703; 85025; 90686; 96361; 96365; 96366; 96372; 96375; G0378; J0696; J1170; J1650; J1815; J7030

== ENCOUNTER 2018-04-18 22:26 | Emergency (ER) | payer MEDICAID ==
[2018-04-18 23:24] LABS: Basophils % (Auto) 0.8 % (0.0-1.8); Eosinophils # (Auto) 0.1 K/mm3 (0.0-0.4); Eosinophils % (Auto) 1.6 % (0.0-4.3); Hematocrit 34.3 % (30.3-42.9); Lymphocytes # (Auto) 2.2 K/mm3 (1.2-5.4); Lymphocytes % (Auto) 37.8 % (13.4-35.0); Mean Corpuscular HGB Conc 35 % (30-34); Mean Corpuscular Volume 91 fl (79-97); Monocytes # (Auto) 0.4 K/mm3 (0.0-0.8); Monocytes % (Auto) 6.7 % (0.0-7.3); Platelet Count 224 K/mm3 (140-440); Red Blood Count 3.79 M/mm3 (3.65-5.03); Red Cell Distribution Width 13.8 % (13.2-15.2)
[2018-04-18 23:41] LABS: BUN/Creatinine Ratio 8; Blood Urea Nitrogen 6 mg/dL (7-17); Calcium 8.7 mg/dL (8.4-10.2); Hemolysis Index 7
[2018-04-19] MEDS ORDERED: NACL 0.9% 1000 ML 1,000 ML IV ONE ×2 (00:41→00:42)
[2018-04-19] MEDS ORDERED: HumuLIN R IV ONE (00:42)
--- NOTE | 2018-04-19 00:45 | Emergency Department Report ---
ED General Adult HPI - General Chief complaint: Hyperglycemia Stated complaint: DIABETIC NEED SUGAR CHECK Time Seen by Provider: 04/19/18 00:38 Source: patient Mode of arrival: Ambulatory Limitations: No Limitations - History of Present Illness Initial comments: 27 y.o. female with a history of diabetes presents with complaint of hyperglycemia. Patient states that she does not have a glucometer and states that she had a feeling that her blood sugar was high. Patient states she just got her prescription today for one of her insulin in cannot get the other prescription or for other insulin because of insurance issues. Patient complains of polyuria and polydipsia. Patient denies any abdominal pain or vomiting. Patient complains of nausea. Patient denies any chest pain. - Related Data Previous Rx's Medication Instructions Recorded Last Taken Type Vit-Fe Fumar-FA [ 1 tab PO QDAY #30 tablet 08/18/16 09/23/16 Rx Vitamin] Vit Calc,Iron,Folic 1 each PO DAILY #30 tablet 02/24/17 Unknown Rx [ Vitamins] Insulin Lispro [HumaLOG VIAL] 10 units SQ AC #5 vial 03/16/18 Unknown Rx Ciprofloxacin HCl [Ciprofloxacin 500 mg PO Q12H #8 tab 04/09/18 Unknown Rx TAB] Ferrous Sulfate [Feosol 325 MG tab] 325 mg PO BID #60 tablet 04/09/18 Unknown Rx Insulin Lispro [HumaLOG VIAL] See Protocol SQ AC #10 ml 04/09/18 Unknown Rx Insulin NPH, Human [NovoLIN N] 18 unit SUB-Q BIDDIAB 30 Days 04/09/18 Unknown Rx units metFORMIN [Glucophage] 850 mg PO BID #60 tablet 04/09/18 Unknown Rx Allergies Allergy/AdvReac Type Severity Reaction Status Date / Time No Known Allergies Allergy Verified 08/18/16 13:33 ED Review of Systems ROS: Stated complaint: DIABETIC NEED SUGAR CHECK Other details as noted in HPI Constitutional: denies: chills, fever Eyes: denies: eye pain, eye discharge, vision change ENT: denies: ear pain, throat pain Respiratory: denies: cough, shortness of breath, wheezing Cardiovascular: denies: chest pain, palpitations Endocrine: increased thirst, increased urine Gastrointestinal: denies: abdominal pain, nausea, diarrhea Genitourinary: denies: urgency, dysuria, discharge Musculoskeletal: denies: back pain, joint swelling, arthralgia Skin: denies: rash, lesions Neurological: denies: headache, weakness, paresthesias Psychiatric: denies: anxiety, depression Hematological/Lymphatic: denies: easy bleeding, easy bruising ED Past Medical Hx - Past Medical History Previous Medical History?: Yes Hx Hypertension: No Hx Heart Attack/AMI: No Hx Congestive Heart Failure: No Hx Diabetes: Yes (type 2) Hx Deep Vein Thrombosis: No Hx Pulmonary Embolism: No Hx GERD: No Hx Liver Disease: No Hx Renal Disease: No Hx Sickle Cell Disease: Yes (trait) Hx Arthritis: No Hx Headaches / Migraines: No Hx Seizures: No Hx Kidney Stones: No Hx Asthma: No Hx COPD: No Hx Tuberculosis: No Hx Dementia: No Hx HIV: No Additional medical history: sickle cell trait - Surgical History Past Surgical History?: Yes Hx Coronary Stent: No Hx Open Heart Surgery: No Hx Pacemaker: No Hx Internal Defibrillator: No Hx Cholecystectomy: No Hx Appendectomy: No Hx Breast Surgery: No Additional Surgical History: x3 - Social History Smoking Status: Never Smoker Substance Use Type: None - Medications Home Medications: Home Medications Medication Instructions Recorded Confirmed Last Taken Type Vit-Fe Fumar-FA [ 1 tab PO QDAY #30 tablet 08/18/16 02/25/17 09/23/16 Rx Vitamin] Vit Calc,Iron,Folic 1 each PO DAILY #30 tablet 02/24/17 Unknown Rx [ Vitamins] Insulin Lispro [HumaLOG VIAL] 10 units SQ AC #5 vial 03/16/18 Unknown Rx Ciprofloxacin HCl [Ciprofloxacin 500 mg PO Q12H #8 tab 04/09/18 Unknown Rx TAB] Ferrous Sulfate [Feosol 325 MG tab] 325 mg PO BID #60 tablet 04/09/18 Unknown Rx Insulin Lispro [HumaLOG VIAL] See Protocol SQ AC #10 ml 04/09/18 Unknown Rx Insulin NPH, Human [NovoLIN N] 18 unit SUB-Q BIDDIAB 30 Days 04/09/18 Unknown Rx units metFORMIN [Glucophage] 850 mg PO BID #60 tablet 04/09/18 Unknown Rx ED Physical Exam - General Limitations: No Limitations General appearance: alert, in no apparent distress - Head Head exam: Present: atraumatic, normocephalic - Eye Eye exam: Present: normal appearance - ENT ENT exam: Present: mucous membranes dry - Neck Neck exam: Present: normal inspection - Respiratory Respiratory exam: Present: normal lung sounds bilaterally. Absent: respiratory distress - Cardiovascular Cardiovascular Exam: Present: regular rate, normal rhythm. Absent: systolic murmur, diastolic murmur, rubs, gallop - GI/Abdominal GI/Abdominal exam: Present: soft, normal bowel sounds - Extremities Exam Extremities exam: Present: normal inspection - Back Exam Back exam: Present: normal inspection - Neurological Exam Neurological exam: Present: alert, oriented X3 - Psychiatric Psychiatric exam: Present: normal affect, normal mood - Skin Skin exam: Present: warm, dry, intact, normal color. Absent: rash ED Medical Decision Making - Lab Data Result diagrams: 04/18/18 23:02 04/18/18 23:02 - Medical Decision Making Patient given IV insulin 10 units and 2 L bolus of normal saline while emergency department. Patient's blood glucose is down trended to below 300 Y emergency department. Patient be discharged to follow up with PCP. - Differential Diagnosis DKA; electrolyte abnormalities; anemia; dehydration Critical care attestation.: If time is entered above; I have spent that time in minutes in the direct care of this critically ill patient, excluding procedure time. ED Disposition Clinical Impression: Hyperglycemia, Type 2 diabetes mellitus Disposition: DC-01 TO HOME OR SELFCARE Is pt being admited?: No Condition: Stable Instructions: Diabetes Mellitus Type 2 in Adults (ED) Referrals: BIB JAY MD [Primary Care Provider] - 3-5 Days Time of Disposition: 04:46 Print Language: PORTUGUESE
[2018-04-19 05:39] VITALS: BP 90/52
== END 2018-04-19 05:52 | disposition home or self-care (01) ==
LOC: ED 22:26
DX: E11.65 Type 2 diabetes mellitus with hyperglycemia (principal); D57.3 Sickle-cell trait; Z79.4 Long term (current) use of insulin
CPT/HCPCS: 36415; 80048; 82803; 82805; 82962; 84703; 85025; 96361; 96374; 99284; J7030; J1815

== ENCOUNTER 2018-05-06 02:25 | Inpatient (IN) | payer MEDICAID ==
[2018-05-06 03:49] LABS: Basophils % (Auto) 0.3 % (0.0-1.8); Eosinophils # (Auto) 0.1 K/mm3 (0.0-0.4); Eosinophils % (Auto) 0.8 % (0.0-4.3); Hematocrit 33.8 % (30.3-42.9); Hemoglobin 11.2 gm/dl (10.1-14.3); Lymphocytes # (Auto) 1.4 K/mm3 (1.2-5.4); Lymphocytes % (Auto) 21.2 % (13.4-35.0); Mean Corpuscular HGB Conc 33 % (30-34); Mean Corpuscular Volume 89 fl (79-97); Monocytes # (Auto) 0.4 K/mm3 (0.0-0.8); Monocytes % (Auto) 5.6 % (0.0-7.3); Platelet Count 204 K/mm3 (140-440); Red Blood Count 3.81 M/mm3 (3.65-5.03); Red Cell Distribution Width 13.5 % (13.2-15.2)
[2018-05-06 04:07] LABS: BUN/Creatinine Ratio 6; Blood Urea Nitrogen 5 mg/dL (7-17); Hemolysis Index 5
[2018-05-06] MEDS ORDERED: HumuLIN R IV ONE (04:49)
[2018-05-06] MEDS ORDERED: NACL 0.9% 1000 ML 1,000 ML IV ONE (04:51)
[2018-05-06] MEDS ORDERED: VANCOMYCIN PHARMACY TO DOSE IV SCH (07:00)
--- NOTE | 2018-05-06 07:26 | Emergency Department Report ---
ED General Adult HPI - General Chief complaint: Skin/Abscess/Foreign Body Stated complaint: BOIL ON BUTTOCKS/ABD PAIN Time Seen by Provider: 05/06/18 04:04 Source: patient Mode of arrival: Ambulatory Limitations: No Limitations - History of Present Illness Initial comments: This is a 27 year old female noncompliant diabetic who is very poorly cooperative. She has no explanation for why she stopped her insulin. She states that she has a bump in her groin and a boil on her right buttocks. She states that she has had an I&D for a previous thigh abscess. She is really not giving very much information. I found her dressed and her street clothes. It was difficult for the nurse to get her to cooperate putting gown on. She had already been given fluids and insulin as she is A sugar of 700. Able to answer questions appropriately. She is nontoxic in appearance. Patient is also now complaining of left thigh cramp which seems to supersede all her other reasons for coming here. -: Gradual, unknown Location: right Severity scale (0 -10): 0 - Related Data Previous Rx's Medication Instructions Recorded Last Taken Type Vit-Fe Fumar-FA [ 1 tab PO QDAY #30 tablet 08/18/16 09/23/16 Rx Vitamin] Vit Calc,Iron,Folic 1 each PO DAILY #30 tablet 02/24/17 Unknown Rx [ Vitamins] Insulin Lispro [HumaLOG VIAL] 10 units SQ AC #5 vial 03/16/18 Unknown Rx Ciprofloxacin HCl [Ciprofloxacin 500 mg PO Q12H #8 tab 04/09/18 Unknown Rx TAB] Ferrous Sulfate [Feosol 325 MG tab] 325 mg PO BID #60 tablet 04/09/18 Unknown Rx Insulin Lispro [HumaLOG VIAL] See Protocol SQ AC #10 ml 04/09/18 Unknown Rx Insulin NPH, Human [NovoLIN N] 18 unit SUB-Q BIDDIAB 30 Days 04/09/18 Unknown Rx units metFORMIN [Glucophage] 850 mg PO BID #60 tablet 04/09/18 Unknown Rx Allergies Allergy/AdvReac Type Severity Reaction Status Date / Time No Known Allergies Allergy Verified 08/18/16 13:33 ED Review of Systems ROS: Stated complaint: BOIL ON BUTTOCKS/ABD PAIN Other details as noted in HPI Constitutional: denies: chills, fever Eyes: denies: eye pain, eye discharge, vision change ENT: denies: ear pain, throat pain Respiratory: denies: cough, shortness of breath, wheezing Cardiovascular: denies: chest pain, palpitations Endocrine: no symptoms reported Gastrointestinal: denies: abdominal pain, nausea, diarrhea Genitourinary: denies: urgency, dysuria, discharge Musculoskeletal: as per HPI, myalgia. denies: back pain, joint swelling, arthralgia Skin: as per HPI Neurological: denies: headache, weakness, paresthesias Psychiatric: denies: anxiety, depression Hematological/Lymphatic: denies: easy bleeding, easy bruising ED Past Medical Hx - Past Medical History Hx Hypertension: No Hx Heart Attack/AMI: No Hx Congestive Heart Failure: No Hx Diabetes: Yes (type 2) Hx Deep Vein Thrombosis: No Hx Pulmonary Embolism: No Hx GERD: No Hx Liver Disease: No Hx Renal Disease: No Hx Sickle Cell Disease: Yes (trait) Hx Arthritis: No Hx Headaches / Migraines: No Hx Seizures: No Hx Kidney Stones: No Hx Asthma: No Hx COPD: No Hx Tuberculosis: No Hx Dementia: No Hx HIV: No Additional medical history: sickle cell trait - Surgical History Hx Coronary Stent: No Hx Open Heart Surgery: No Hx Pacemaker: No Hx Internal Defibrillator: No Hx Cholecystectomy: No Hx Appendectomy: No Hx Breast Surgery: No Additional Surgical History: x3 - Social History Smoking Status: Never Smoker Substance Use Type: None - Medications Home Medications: Home Medications Medication Instructions Recorded Confirmed Last Taken Type Vit-Fe Fumar-FA [ 1 tab PO QDAY #30 tablet 08/18/16 02/25/17 09/23/16 Rx Vitamin] Vit Calc,Iron,Folic 1 each PO DAILY #30 tablet 02/24/17 Unknown Rx [ Vitamins] Insulin Lispro [HumaLOG VIAL] 10 units SQ AC #5 vial 03/16/18 Unknown Rx Ciprofloxacin HCl [Ciprofloxacin 500 mg PO Q12H #8 tab 04/09/18 Unknown Rx TAB] Ferrous Sulfate [Feosol 325 MG tab] 325 mg PO BID #60 tablet 04/09/18 Unknown Rx Insulin Lispro [HumaLOG VIAL] See Protocol SQ AC #10 ml 04/09/18 Unknown Rx Insulin NPH, Human [NovoLIN N] 18 unit SUB-Q BIDDIAB 30 Days 04/09/18 Unknown Rx units metFORMIN [Glucophage] 850 mg PO BID #60 tablet 04/09/18 Unknown Rx ED Physical Exam - General Limitations: No Limitations General appearance: alert, in no apparent distress, obese - Head Head exam: Present: atraumatic, normocephalic - Eye Eye exam: Present: normal appearance. Absent: scleral icterus - ENT ENT exam: Present: mucous membranes moist - Neck Neck exam: Present: normal inspection. Absent: tenderness, meningismus - Respiratory Respiratory exam: Present: normal lung sounds bilaterally. Absent: respiratory distress - Cardiovascular Cardiovascular Exam: Present: regular rate, normal rhythm. Absent: systolic murmur, diastolic murmur, rubs, gallop - GI/Abdominal GI/Abdominal exam: Present: soft, rigid, normal bowel sounds, other (right inguinal adenopathy mildly tender nonfluctuant.). Absent: distended, tenderness, guarding, rebound, organomegaly, mass, bruit, pulsatile mass, hernia - Extremities Exam Extremities exam: Present: other (there is a pointing and draining right proximal tox abscess. It is moderately small and not grossly fluctuant. It is spontaneously draining.) - Back Exam Back exam: Present: normal inspection - Neurological Exam Neurological exam: Present: alert, oriented X3, CN II-XII intact. Absent: motor sensory deficit - Psychiatric Psychiatric exam: Present: normal affect, normal mood - Skin Skin exam: Present: warm, dry, intact, normal color. Absent: rash ED Course Vital Signs 05/06/18 05/06/18 05/06/18 02:31 03:09 05:24 Temperature 98.0 F 98 F 98.4 F Pulse Rate 104 H 100 H 87 Respiratory 18 18 14 Rate Blood Pressure 120/74 Blood Pressure 120/74 100/49 [Left] O2 Sat by Pulse 100 100 97 Oximetry ED Medical Decision Making - Lab Data Result diagrams: 05/06/18 03:29 05/06/18 03:29 Laboratory Results - last 24 hr 05/06/18 05/06/18 05/06/18 03:24 03:29 03:29 WBC 6.8 RBC 3.81 Hgb 11.2 Hct 33.8 MCV 89 MCH 29 MCHC 33 RDW 13.5 Plt Count 204 Lymph % (Auto) 21.2 [place] % (Auto) 5.6 Eos % (Auto) 0.8 Baso % (Auto) 0.3 Lymph # 1.4 Branch # 0.4 Eos # 0.1 Baso # 0.0 Seg Neutrophils % 72.1 H Seg Neutrophils # 4.9 VBG pH Sodium 127 L Potassium 4.1 Chloride 92.2 L Carbon Dioxide 24 Anion Gap 15 BUN 5 L Creatinine 0.8 Estimated GFR > 60 BUN/Creatinine Ratio 6 Glucose 737 H* POC Glucose > 500 H Calcium 9.0 HCG, Qual 05/06/18 05/06/18 05/06/18 03:29 03:29 06:17 WBC RBC Hgb Hct MCV MCH MCHC RDW Plt Count Lymph % (Auto) Branch % (Auto) Eos % (Auto) Baso % (Auto) Lymph # Branch # Eos # Baso # Seg Neutrophils % Seg Neutrophils # VBG pH 7.339 Sodium Potassium Chloride Carbon Dioxide Anion Gap BUN Creatinine Estimated GFR BUN/Creatinine Ratio Glucose POC Glucose 236 H Calcium HCG, Qual Negative Critical care attestation.: If time is entered above; I have spent that time in minutes in the direct care of this critically ill patient, excluding procedure time. ED Disposition Clinical Impression: Hyperglycemia due to type 1 diabetes mellitus, Abscess of right buttock Disposition: - OP ADMIT IP TO THIS HOSP Is pt being admited?: Yes Does the pt Need Aspirin: Yes Condition: Stable Instructions: Diabetes Mellitus Type 2 in Adults (ED) Referrals: CURTIS HOYOS MD [Primary Care Provider] - 3-5 Days Time of Disposition: 07:32
[2018-05-06 07:38] LABS: INR 0.89 (0.87-1.13); Partial Thromboplastin Time 29.6 Sec. (24.2-36.6)
[2018-05-06 07:44] LABS: Alanine Aminotransferase 6 units/L (7-56); Albumin 3.6 g/dL (3.9-5)
[2018-05-06 07:46] LABS: Bilirubin,Direct < 0.2 mg/dL (0-0.2)
[2018-05-06] MEDS ORDERED: VANCOMYCIN 2,000 MG in NACL 0.9% 500 ML 500 ML IV ONE (08:00)
[2018-05-06 08:28] LABS: Bilirubin,Urine NEG (Negative); Blood,Urine NEG (Negative); Color,Urine Straw (Yellow); Mucus,Urine FEW /HPF; Protein,Urine <15 mg/dL mg/dL (Negative)
[2018-05-06] MEDS ORDERED: TYLENOL PO PRN (09:48)
[2018-05-06] MEDS ORDERED: D50W (25GM) Syringe IV PRN ×2 (09:48→09:50)
[2018-05-06] MEDS ORDERED: SODIUM CHLORIDE FLUSH SYRINGE 10 ML IV PRN (09:48)
[2018-05-06] MEDS ORDERED: ZOFRAN IV PRN (09:48)
[2018-05-06] MEDS ORDERED: PRENATAL VIT CALC IRON FOLIC PO SCH (10:00)
--- NOTE | 2018-05-06 11:29 | History and Physical Report ---
History of Present Illness Date of examination: 05/06/18 Date of admission: 05/06/18 09:07 Chief complaint: Skin/Abscess/Foreign Body History of present illness: 27-year-old female with significant past medical history of diabetes mellitus type 2 who presents through the emergency Department with complaints of a boil on her right buttocks. Patient has a history of medical noncompliance and has not taken her insulin. She states that she has had an I&D for a previous thigh abscess. Also, patient is a very poor historian. Patient denies any chest pain or shortness of breath. No headache or visual disturbances. No fever or chills. Past History Past Medical History: diabetes Past Surgical History: Other (I&D of a thigh abscess) Social history: other (medical noncompliance) Family history: no significant family history Medications and Allergies Allergies Allergy/AdvReac Type Severity Reaction Status Date / Time No Known Allergies Allergy Verified 08/18/16 13:33 Home Medications Medication Instructions Recorded Confirmed Last Taken Type Vit-Fe Fumar-FA [ 1 tab PO QDAY #30 tablet 08/18/16 02/25/17 09/23/16 Rx Vitamin] Vit Calc,Iron,Folic 1 each PO DAILY #30 tablet 02/24/17 Unknown Rx [ Vitamins] Insulin Lispro [HumaLOG VIAL] 10 units SQ AC #5 vial 03/16/18 Unknown Rx Ciprofloxacin HCl [Ciprofloxacin 500 mg PO Q12H #8 tab 04/09/18 Unknown Rx TAB] Ferrous Sulfate [Feosol 325 MG tab] 325 mg PO BID #60 tablet 04/09/18 Unknown Rx Insulin Lispro [HumaLOG VIAL] See Protocol SQ AC #10 ml 04/09/18 Unknown Rx Insulin NPH, Human [NovoLIN N] 18 unit SUB-Q BIDDIAB 30 Days 04/09/18 Unknown Rx units metFORMIN [Glucophage] 850 mg PO BID #60 tablet 04/09/18 Unknown Rx Active Meds: Active Medications Acetaminophen (Tylenol) 650 mg PO Q4H PRN PRN Reason: Pain MILD(1-3)/Fever >100.5/LINDSEY Dextrose (D50w (25gm) Syringe) 50 ml IV PRN PRN PRN Reason: Hypoglycemia Enoxaparin Sodium (Lovenox) 40 mg SUB-Q QDAY SARA Ferrous Sulfate (Feosol) 325 mg PO BID SARA Vancomycin HCl 1,500 mg/ (Sodium Chloride) 530 mls @ 333.333 mls/hr IV Q12H SARA Sodium Chloride (Nacl 0.9% 1000 Ml) 1,000 mls @ 75 mls/hr IV DIRECT SARA Insulin Human NPH (Humulin N) 18 unit SUB-Q BIDDIAB [facility] Insulin Human Regular (Humulin R) 0 units SUB-Q ACHS SARA; Protocol Metformin HCl (Glucophage) 850 mg PO BIDDIAB [facility] Multivitamins/Iron/Calcium ( Vitamin) 1 each PO QDAY [facility] Ondansetron HCl (Zofran) 4 mg IV Q8H PRN PRN Reason: Nausea And Vomiting Sodium Chloride (Sodium Chloride Flush Syringe 10 Ml) 10 ml IV BID SARA Sodium Chloride (Sodium Chloride Flush Syringe 10 Ml) 10 ml IV PRN PRN PRN Reason: LINE FLUSH Review of Systems All systems: negative Exam - Constitutional Vitals: Temp Pulse Resp BP Pulse Ox 99.2 F 89 20 112/68 100 05/06/18 08:40 05/06/18 08:40 05/06/18 08:40 05/06/18 08:40 05/06/18 08:40 General appearance: Present: no acute distress, well-nourished - EENT Eyes: Present: PERRL ENT: hearing intact, clear oral mucosa - Neck Neck: Present: supple, normal ROM - Respiratory Respiratory effort: normal Respiratory: bilateral: CTA - Cardiovascular Heart Sounds: Present: S1 & S2. Absent: rub, click - Extremities Extremities: pulses symmetrical, No edema Extremity abnormal: other (right buttocks with induration) Peripheral Pulses: within normal limits - Abdominal General gastrointestinal: Present: soft, non-tender, non-distended, normal bowel sounds Female genitourinary: Present: normal - Integumentary Body Four View: 1 - Indurated, mild erythema - Musculoskeletal Musculoskeletal: gait normal, strength equal bilaterally - Psychiatric Psychiatric: appropriate mood/affect, intact judgment & insight - Neurologic Neurologic: CNII-XII intact, moves all extremities Results - Labs CBC & Chem 7: 05/06/18 03:29 05/06/18 03:29 Labs: Laboratory Last Values WBC 6.8 K/mm3 (4.5-11.0) 05/06/18 03:29 RBC 3.81 M/mm3 (3.65-5.03) 05/06/18 03:29 Hgb 11.2 gm/dl (10.1-14.3) 05/06/18 03:29 Hct 33.8 % (30.3-42.9) 05/06/18 03:29 MCV 89 fl (79-97) 05/06/18 03:29 MCH 29 pg (28-32) 05/06/18 03: MCHC 33 % (30-34) 05/06/18 03:29 RDW 13.5 % (13.2-15.2) 05/06/18 03:29 Plt Count 204 K/mm3 (140-440) 05/06/18 03:29 Lymph % (Auto) 21.2 % (13.4-35.0) 05/06/18 03:29 [place] % (Auto) 5.6 % (0.0-7.3) 05/06/18 03:29 Eos % (Auto) 0.8 % (0.0-4.3) 05/06/18 03:29 Baso % (Auto) 0.3 % (0.0-1.8) 05/06/18 03:29 Lymph # 1.4 K/mm3 (1.2-5.4) 05/06/18 03:29 [place] # 0.4 K/mm3 (0.0-0.8) 05/06/18 03:29 Eos # 0.1 K/mm3 (0.0-0.4) 05/06/18 03:29 Baso # 0.0 K/mm3 (0.0-0.1) 05/06/18 03:29 Seg Neutrophils % 72.1 % (40.0-70.0) H 05/06/18 03:29 Seg Neutrophils # 4.9 K/mm3 (1.8-7.7) 05/06/18 03:29 PT 12.4 Sec. (12.2-14.9) 05/06/18 07:10 INR 0.89 (0.87-1.13) 05/06/18 07:10 APTT 29.6 Sec. (24.2-36.6) 05/06/18 07:10 VBG pH 7.339 (7.320-7.420) 05/06/18 03:29 Sodium 127 mmol/L (137-145) L 05/06/18 03:29 Potassium 4.1 mmol/L (3.6-5.0) 05/06/18 03:29 Chloride 92.2 mmol/L (98-107) L 05/06/18 03:29 Carbon Dioxide 24 mmol/L (22-30) 05/06/18 03:29 Anion Gap 15 mmol/L 05/06/18 03:29 BUN 5 mg/dL (7-17) L 05/06/18 03:29 Creatinine 0.8 mg/dL (0.7-1.2) 05/06/18 03:29 Estimated GFR > 60 ml/min 05/06/18 03:29 BUN/Creatinine Ratio 6 % 05/06/18 03:29 Glucose 737 mg/dL (65-100) H* 05/06/18 03:29 POC Glucose 236 (70-105) H 05/06/18 06:17 Lactic Acid 2.10 mmol/L (0.7-2.0) H* 05/06/18 07:10 Calcium 9.0 mg/dL (8.4-10.2) 05/06/18 03:29 Magnesium 1.70 mg/dL (1.7-2.3) 05/06/18 07:10 Total Bilirubin 0.50 mg/dL (0.1-1.2) 05/06/18 07:10 Direct Bilirubin < 0.2 mg/dL (0-0.2) 05/06/18 07:10 Indirect Bilirubin 0.3 mg/dL 05/06/18 07:10 AST 9 units/L (5-40) 05/06/18 07:10 ALT 6 units/L (7-56) L 05/06/18 07:10 Alkaline Phosphatase 87 units/L (35-129) 05/06/18 07:10 Total Protein 6.6 g/dL (6.3-8.2) 05/06/18 07:10 Albumin 3.6 g/dL (3.9-5) L 05/06/18 07:10 Albumin/Globulin Ratio 1.2 % 05/06/18 07:10 HCG, Qual Negative (Negative) 05/06/18 03:29 Urine Color Straw (Yellow) 05/06/18 07:30 Urine Turbidity Clear (Clear) 05/06/18 07:30 Urine pH 6.0 (5.0-7.0) 05/06/18 07:30 Ur Specific [place] 1.023 (1.003-1.030) 05/06/18 07:30 Urine Protein <15 mg/dl mg/dL (Negative) 05/06/18 07:30 Urine Glucose (UA) >=500 mg/dL (Negative) 05/06/18 07:30 Urine Ketones Neg mg/dL (Negative) 05/06/18 07:30 Urine Blood Neg (Negative) 05/06/18 07:30 Urine Nitrite Neg (Negative) 05/06/18 07:30 Urine Bilirubin Neg (Negative) 05/06/18 07:30 Urine Urobilinogen 4.0 mg/dL (<2.0) 05/06/18 07:30 Ur Leukocyte Esterase Tr (Negative) 05/06/18 07:30 Urine WBC (Auto) 5.0 /HPF (0.0-6.0) 05/06/18 07:30 Urine RBC (Auto) 2.0 /HPF (0.0-6.0) 05/06/18 07:30 U Epithel Cells (Auto) 1.0 /HPF (0-13.0) 05/06/18 07:30 Urine Mucus Few /HPF 05/06/18 07:30 Assessment and Plan Assessment and plan: Diabetes mellitus type 2, uncontrolled. Continue with sliding scale insulin. Resume her home insulin regimen. Right gluteal cellulitis. Consider ID consultation. Obtain ultrasound rule out abscess. IV antibiotics. SIRS. Etiology secondary to above. Follow blood and wound cultures.
[2018-05-06] MEDS: GLUCOPHAGE PO SCH ×2 (12:42→17:35)
[2018-05-06] MEDS: SODIUM CHLORIDE FLUSH SYRINGE 10 ML IV SCH ×2 (12:42→22:56)
[2018-05-06] MEDS: FEOSOL PO SCH ×2 (12:42→22:57)
[2018-05-06] MEDS: LOVENOX SUB-Q SCH (12:42)
[2018-05-06] MEDS: PRENATAL VITAMIN PO SCH (12:42)
[2018-05-06] MEDS: HumuLIN R SUB-Q SCH ×3 (12:43→22:18)
[2018-05-06] MEDS: NACL 0.9% 1000 ML 1,000 ML IV SCH (12:47)
--- NOTE | 2018-05-06 13:13 | Ultrasound Report ---
FINAL REPORT EXAM: US UNLISTED PROCEDURE (BACK) HISTORY: right gluteal infection TECHNIQUE: Ultrasound imaging of the right gluteal region was performed. PRIORS: None. FINDINGS: There is diffuse subcutaneous edema in the right gluteal region. In the area of clinical concern, the re is a small focal fluid collection measuring 1.3 x 0.3 x 0.5 centimeters. No internal color flow is seen. IMPRESSION: Small focal phlegmon or early abscess in the right gluteal subcutaneous tissues.
[2018-05-06] MEDS: VANCOMYCIN 1,500 MG in NACL 0.9% 500 ML 500 ML IV SCH (17:51)
[2018-05-07] MEDS: VANCOMYCIN 1,500 MG in NACL 0.9% 500 ML 500 ML IV SCH ×2 (03:54→15:36)
[2018-05-07] MEDS: NACL 0.9% 1000 ML 1,000 ML IV SCH ×2 (03:55→14:17)
[2018-05-07 06:19] LABS: Basophils % (Auto) 0.6 % (0.0-1.8); Eosinophils # (Auto) 0.1 K/mm3 (0.0-0.4); Eosinophils % (Auto) 2.1 % (0.0-4.3); Hematocrit 29.5 % (30.3-42.9); Hemoglobin 10.1 gm/dl (10.1-14.3); Lymphocytes # (Auto) 2.1 K/mm3 (1.2-5.4); Lymphocytes % (Auto) 33.1 % (13.4-35.0); Mean Corpuscular HGB Conc 34 % (30-34); Mean Corpuscular Volume 89 fl (79-97); Monocytes # (Auto) 0.4 K/mm3 (0.0-0.8); Monocytes % (Auto) 6.3 % (0.0-7.3); Platelet Count 191 K/mm3 (140-440); Red Blood Count 3.33 M/mm3 (3.65-5.03); Red Cell Distribution Width 13.5 % (13.2-15.2)
[2018-05-07 06:40] LABS: BUN/Creatinine Ratio 7; Blood Urea Nitrogen 5 mg/dL (7-17); Calcium 8.2 mg/dL (8.4-10.2); Hemolysis Index 2
[2018-05-07] MEDS: HumuLIN R SUB-Q SCH ×4 (07:30→23:32)
[2018-05-07] MEDS: GLUCOPHAGE PO SCH ×2 (08:00→17:32)
[2018-05-07] MEDS: PRENATAL VITAMIN PO SCH (09:11)
[2018-05-07] MEDS: LOVENOX SUB-Q SCH (09:11)
[2018-05-07] MEDS: FEOSOL PO SCH ×2 (09:11→21:53)
[2018-05-07] MEDS: SODIUM CHLORIDE FLUSH SYRINGE 10 ML IV SCH ×2 (09:15→21:53)
[2018-05-07] MEDS ORDERED: XYLOCAINE 2%/EPI 1:100,000 INFILTRATI NR (10:13)
--- NOTE | 2018-05-07 11:28 | Progress Note ---
Assessment and Plan Assessment and plan: Diabetes mellitus type 2, uncontrolled. Continue with sliding scale insulin Right gluteal abscess/cellulitis. Ultrasound reveals early abscess. Surgery consultation. SIRS. Etiology secondary to above. Follow blood and wound cultures. History Interval history: No new issues overnight. Hospitalist Physical - Constitutional Vitals: Temp Pulse Resp BP Pulse Ox 98.5 F 80 18 91/48 100 05/07/18 06:13 05/07/18 06:13 05/07/18 06:13 05/07/18 06:13 05/07/18 06:13 General appearance: Present: no acute distress, well-nourished - EENT Eyes: Present: PERRL, EOM intact ENT: hearing intact, clear oral mucosa, dentition normal - Neck Neck: Present: supple, normal ROM - Respiratory Respiratory effort: normal Respiratory: bilateral: CTA - Cardiovascular Rhythm: regular Heart Sounds: Present: S1 & S2. Absent: gallop, rub - Extremities Extremities: no ischemia, No edema, Full ROM - Abdominal General gastrointestinal: soft, non-tender, non-distended, normal bowel sounds - Integumentary Integumentary: Present: clear, warm, dry - Neurologic Neurologic: CNII-XII intact, moves all extremities Results - Labs CBC & Chem 7: 05/07/18 05:27 05/07/18 05:27 Labs: Laboratory Last Values WBC 6.3 K/mm3 (4.5-11.0) 05/07/18 05:27 RBC 3.33 M/mm3 (3.65-5.03) L 05/07/18 05:27 Hgb 10.1 gm/dl (10.1-14.3) 05/07/18 05:27 Hct 29.5 % (30.3-42.9) L 05/07/18 05:27 MCV 89 fl (79-97) 05/07/18 05:27 MCH 30 pg (28-32) 05/07/18 05:27 MCHC 34 % (30-34) 05/07/18 05:27 RDW 13.5 % (13.2-15.2) 05/07/18 05:27 Plt Count 191 K/mm3 (140-440) 05/07/18 05:27 Lymph % (Auto) 33.1 % (13.4-35.0) 05/07/18 05:27 [place] % (Auto) 6.3 % (0.0-7.3) 05/07/18 05:27 Eos % (Auto) 2.1 % (0.0-4.3) 05/07/18 05:27 Baso % (Auto) 0.6 % (0.0-1.8) 05/07/18 05:27 Lymph # 2.1 K/mm3 (1.2-5.4) 05/07/18 05:27 [place] # 0.4 K/mm3 (0.0-0.8) 05/07/18 05:27 Eos # 0.1 K/mm3 (0.0-0.4) 05/07/18 05:27 Baso # 0.0 K/mm3 (0.0-0.1) 05/07/18 05:27 Seg Neutrophils % 57.9 % (40.0-70.0) 05/07/18 05:27 Seg Neutrophils # 3.6 K/mm3 (1.8-7.7) 05/07/18 05:27 PT 12.4 Sec. (12.2-14.9) 05/06/18 07:10 INR 0.89 (0.87-1.13) 05/06/18 07:10 APTT 29.6 Sec. (24.2-36.6) 05/06/18 07:10 VBG pH 7.339 (7.320-7.420) 05/06/18 03:29 Sodium 139 mmol/L (137-145) D 05/07/18 05:27 Potassium 3.5 mmol/L (3.6-5.0) L 05/07/18 05:27 Chloride 106.9 mmol/L (98-107) 05/07/18 05:27 Carbon Dioxide 25 mmol/L (22-30) 05/07/18 05:27 Anion Gap 11 mmol/L 05/07/18 05:27 BUN 5 mg/dL (7-17) L 05/07/18 05:27 Creatinine 0.7 mg/dL (0.7-1.2) 05/07/18 05:27 Estimated GFR > 60 ml/min 05/07/18 05:27 BUN/Creatinine Ratio 7 % 05/07/18 05:27 Glucose 192 mg/dL (65-100) H 05/07/18 05:27 POC Glucose 201 (70-105) H 05/07/18 07:42 Lactic Acid 2.10 mmol/L (0.7-2.0) H* 05/06/18 07:10 Calcium 8.2 mg/dL (8.4-10.2) L 05/07/18 05:27 Magnesium 1.70 mg/dL (1.7-2.3) 05/06/18 07:10 Total Bilirubin 0.50 mg/dL (0.1-1.2) 05/06/18 07:10 Direct Bilirubin < 0.2 mg/dL (0-0.2) 05/06/18 07:10 Indirect Bilirubin 0.3 mg/dL 05/06/18 07:10 AST 9 units/L (5-40) 05/06/18 07:10 ALT 6 units/L (7-56) L 05/06/18 07:10 Alkaline Phosphatase 87 units/L (35-129) 05/06/18 07:10 Total Protein 6.6 g/dL (6.3-8.2) 05/06/18 07:10 Albumin 3.6 g/dL (3.9-5) L 05/06/18 07:10 Albumin/Globulin Ratio 1.2 % 05/06/18 07:10 HCG, Qual Negative (Negative) 05/06/18 03:29 Urine Color Straw (Yellow) 05/06/18 07:30 Urine Turbidity Clear (Clear) 05/06/18 07:30 Urine pH 6.0 (5.0-7.0) 05/06/18 07:30 Ur Specific [place] 1.023 (1.003-1.030) 05/06/18 07:30 Urine Protein <15 mg/dl mg/dL (Negative) 05/06/18 07:30 Urine Glucose (UA) >=500 mg/dL (Negative) 05/06/18 07:30 Urine Ketones Neg mg/dL (Negative) 05/06/18 07:30 Urine Blood Neg (Negative) 05/06/18 07:30 Urine Nitrite Neg (Negative) 05/06/18 07:30 Urine Bilirubin Neg (Negative) 05/06/18 07:30 Urine Urobilinogen 4.0 mg/dL (<2.0) 05/06/18 07:30 Ur Leukocyte Esterase Tr (Negative) 05/06/18 07:30 Urine WBC (Auto) 5.0 /HPF (0.0-6.0) 05/06/18 07:30 Urine RBC (Auto) 2.0 /HPF (0.0-6.0) 05/06/18 07:30 U Epithel Cells (Auto) 1.0 /HPF (0-13.0) 05/06/18 07:30 Urine Mucus Few /HPF 05/06/18 07:30
[2018-05-07] MEDS ORDERED: XYLOCAINE 2%/EPI 1:100,000 INFILTRATI ONE (13:49)
[2018-05-07] MEDS ORDERED: XYLOCAINE 1% 20 mL ONE (13:59)
--- NOTE | 2018-05-07 14:12 | Procedure Note ---
Date of procedure: 05/07/18 Pre-op diagnosis: right buttock abscess Post-op diagnosis: same Procedure: Right buttock incision and drainage Timeout was performed. Sterile prep was done. 1% Lidocaine was used to anesthetize the surrounding skin. Through the opening a cotton tipped a pplicator was inserted. Cavity was probed. It appeared to be one single cavity. Using the applicator as a guide, the skin was opened over it with an 11 blade. The cavity extended only into the subcutaneous tissue. Primarily skin was incised. There was minimal residual contents. It appeared to be mainly a small clot. Cavity was thoroughly cleaned out and packed with 1/2' iodoform tape. Dressings were placed. Patient tolerated the procedure well. There were no complications. It appears as though most of the infection had already drained out. Anesthesia: local Surgeon: FELY NICK Estimated blood loss: minimal Pathology: none Condition: stable Disposition: floor
--- NOTE | 2018-05-07 14:12 | Consultation ---
History of Present Illness Consult date: 05/07/18 Reason for consult: other (buttock abscess) Requesting physician: VIGNESH MARTINEZ Chief complaint: right buttock boil - History of present illness History of present illness: 27yo F presents with a few day history of right buttock pain and swelling. It has become increasingly worse. Denies any fevers, chills, nausea, vomiting. It did spontaneously drain starting yesterday. Her pain is less now. We are being asked to see patient for formal incision and drainage. She may have had a previous right buttock abscess that drain spontaneously. Past History Past Medical History: diabetes Past Surgical History: (3 times - no complications), Other (I&D of a thigh abscess) Social history: other (medical noncompliance). denies: smoking, alcohol abuse Family history: no significant family history Medications and Allergies Allergies Allergy/AdvReac Type Severity Reaction Status Date / Time No Known Allergies Allergy Verified 08/18/16 13:33 Home Medications Medication Instructions Recorded Confirmed Last Taken Type Vit-Fe Fumar-FA [ 1 tab PO QDAY #30 tablet 08/18/16 02/25/17 09/23/16 Rx Vitamin] Vit Calc,Iron,Folic 1 each PO DAILY #30 tablet 02/24/17 Unknown Rx [ Vitamins] Insulin Lispro [HumaLOG VIAL] 10 units SQ AC #5 vial 03/16/18 Unknown Rx Ciprofloxacin HCl [Ciprofloxacin 500 mg PO Q12H #8 tab 04/09/18 Unknown Rx TAB] Ferrous Sulfate [Feosol 325 MG tab] 325 mg PO BID #60 tablet 04/09/18 Unknown Rx Insulin Lispro [HumaLOG VIAL] See Protocol SQ AC #10 ml 04/09/18 Unknown Rx Insulin NPH, Human [NovoLIN N] 18 unit SUB-Q BIDDIAB 30 Days 04/09/18 Unknown Rx units metFORMIN [Glucophage] 850 mg PO BID #60 tablet 04/09/18 Unknown Rx Active Meds: Active Medications Acetaminophen (Tylenol) 650 mg PO Q4H PRN PRN Reason: Pain MILD(1-3)/Fever >100.5/LINDSEY Dextrose (D50w (25gm) Syringe) 50 ml IV PRN PRN PRN Reason: Hypoglycemia Enoxaparin Sodium (Lovenox) 40 mg SUB-Q QDAY [facility] Last Admin: 05/07/18 09:11 Dose: 40 mg Documented by: Ferrous Sulfate (Feosol) 325 mg PO BID [facility] Last Admin: 05/07/18 09:11 Dose: 325 mg Documented by: Vancomycin HCl 1,500 mg/ (Sodium Chloride) 530 mls @ 333.333 mls/hr IV Q12H [facility] Last Admin: 05/07/18 03:54 Dose: 333.333 mls/hr Documented by: Sodium Chloride (Nacl 0.9% 1000 Ml) 1,000 mls @ 75 mls/hr IV DIRECT [facility] Last Admin: 05/07/18 03:55 Dose: 75 mls/hr Documented by: Insulin Human NPH (Humulin N) 18 unit SUB-Q BIDDIAB [facility] Last Admin: 05/07/18 08:00 Dose: 18 unit Documented by: Insulin Human Regular (Humulin R) 0 units SUB-Q ACHS [facility]; Protocol Last Admin: 05/07/18 11:30 Dose: 2 units Documented by: Lidocaine/Epinephrine (Xylocaine 2%/Epi 1:100,000) 20 ml INFILTRATI ONCE ONE Stop: 05/07/18 13:50 Metformin HCl (Glucophage) 850 mg PO BIDDIAB [facility] Last Admin: 05/07/18 08:00 Dose: 850 mg Documented by: Multivitamins/Iron/Calcium ( Vitamin) 1 each PO QDAY [facility] Last Admin: 05/07/18 09:11 Dose: 1 each Documented by: Ondansetron HCl (Zofran) 4 mg IV Q8H PRN PRN Reason: Nausea And Vomiting Sodium Chloride (Sodium Chloride Flush Syringe 10 Ml) 10 ml IV BID [facility] Last Admin: 05/07/18 09:15 Dose: 10 ml Documented by: Sodium Chloride (Sodium Chloride Flush Syringe 10 Ml) 10 ml IV PRN PRN PRN Reason: LINE FLUSH Review of Systems - Constitutional no fever, no chills, no chronic pain - Cardiovascular no chest pain, no shortness of breath - Respiratory no cough - Gastrointestinal no abdominal pain, no nausea, no vomiting - Integumentary boils Exam Vital Signs Temp Pulse Resp BP Pulse Ox 98.0 F 104 H 18 120/74 100 05/06/18 02:31 05/06/18 02:31 05/06/18 02:31 05/06/18 02:31 05/06/18 02:31 - General physical appearance Positive: no distress, no pain, obese - Eyes Positive: normal occular movement - Respiratory Positive: normal expansion, normal respiratory effort - Integumentary other (right buttock - 2mm opening with no active drainage. +tenderness. No erythema. +3cm diameter area of induration. Medial to current infection, there is a scar from a previous boil) - Neurologic Neurologic: alert and oriented to time, place and person - Psychiatric Psychiatric: appropriate mood/affect, intact judgment & insight Results - Labs 05/07/18 05:27 05/07/18 05:27 Abnormal lab results 05/06/18 05/07/18 05/07/18 Range/Units 16:21 05:27 05:27 RBC 3.33 L (3.65-5.03) M/mm3 Hct 29.5 L (30.3-42.9) % Potassium 3.5 L (3.6-5.0) mmol/L BUN 5 L (7-17) mg/dL Glucose 192 H (65-100) mg/dL POC Glucose 319 H (70-105) Calcium 8.2 L (8.4-10.2) mg/dL 05/07/18 05/07/18 Range/Units 07:42 11:37 RBC (3.65-5.03) M/mm3 Hct (30.3-42.9) % Potassium (3.6-5.0) mmol/L BUN (7-17) mg/dL Glucose (65-100) mg/dL POC Glucose 201 H 184 H (70-105) Calcium (8.4-10.2) mg/dL Diabetes panel 05/07/18 Range/Units 05:27 Sodium 139 D (137-145) mmol/L Potassium 3.5 L (3.6-5.0) mmol/L Chloride 106.9 (98-107) mmol/L Carbon Dioxide 25 (22-30) mmol/L BUN 5 L (7-17) mg/dL Creatinine 0.7 (0.7-1.2) mg/dL Glucose 192 H (65-100) mg/dL Calcium 8.2 L (8.4-10.2) mg/dL Calcium panel 05/07/18 Range/Units 05:27 Calcium 8.2 L (8.4-10.2) mg/dL Pituitary panel 05/07/18 Range/Units 05:27 Sodium 139 D (137-145) mmol/L Potassium 3.5 L (3.6-5.0) mmol/L Chloride 106.9 (98-107) mmol/L Carbon Dioxide 25 (22-30) mmol/L BUN 5 L (7-17) mg/dL Creatinine 0.7 (0.7-1.2) mg/dL Glucose 192 H (65-100) mg/dL Calcium 8.2 L (8.4-10.2) mg/dL Adrenal panel 05/07/18 Range/Units 05:27 Sodium 139 D (137-145) mmol/L Potassium 3.5 L (3.6-5.0) mmol/L Chloride 106.9 (98-107) mmol/L Carbon Dioxide 25 (22-30) mmol/L BUN 5 L (7-17) mg/dL Creatinine 0.7 (0.7-1.2) mg/dL Glucose 192 H (65-100) mg/dL Calcium 8.2 L (8.4-10.2) mg/dL - Imaging Additional studies: US report reviewed Assessment and Plan - Patient Problems (1) Abscess of right buttock Current Visit: Yes Status: Acute Plan to address problem: Pt stable. Patient has a very small abscess cavity. Based on the history and exam, this has already started to drain. She is feeling better at this point. I gave her the option of warm compresses to allow for further expression of any retained fluid versus incision and drainage now. We discussed pros and cons of each. She wish to proceed with incision and drainage. Procedure, risks, benefits were discussed. Consent was obtained. Time=30min
[2018-05-07] MEDS ORDERED: XYLOCAINE 1% 20 mL INFILTRATI ONE (14:24)
[2018-05-07 23:59] VITALS: BP 104/56
[2018-05-08] MEDS: VANCOMYCIN 1,500 MG in NACL 0.9% 500 ML 500 ML IV SCH (04:09)
[2018-05-08] MEDS: HumuLIN R SUB-Q SCH ×2 (07:30→11:30)
[2018-05-08] MEDS: GLUCOPHAGE PO SCH (08:00)
--- NOTE | 2018-05-08 09:15 | Progress Note ---
Assessment and Plan - Patient Problems (1) Abscess of right buttock Current Visit: Yes Status: Acute Plan to address problem: Pt stable. s/p Right buttock I&D - 05/07/18 - POD#1. No concerns at this point. Ok to d/c home. 1) Change iodoform packing at least twice daily. 2) May shower. 3) f/u in 2 weeks. Please call with questions. Subjective Date of service: 05/08/18 Patient Reports: Positive: no new complaints, pain is less Objective Vital Signs - 12hr 05/07/18 23:57 Temperature 99.2 F Pulse Rate 73 Respiratory 18 Rate Blood Pressure 104/56 O2 Sat by Pulse 99 Oximetry - General physical appearance no distress, no pain, other (sitting in bed having breakfast) - Eyes normal occular movement - Respiratory normal expansion, normal respiratory effort - Psychiatric oriented to time, oriented to person, oriented to place, speech is normal, memory intact - Labs 05/07/18 05:27 05/07/18 05:27
[2018-05-08] MEDS: PRENATAL VITAMIN PO SCH (09:56)
[2018-05-08] MEDS: FEOSOL PO SCH (09:57)
[2018-05-08] MEDS: LOVENOX SUB-Q SCH (09:57)
[2018-05-08] MEDS: SODIUM CHLORIDE FLUSH SYRINGE 10 ML IV SCH (10:00)
--- NOTE | 2018-05-08 14:21 | Discharge Summary ---
Providers - Providers Date of Admission: 05/06/18 09:07 Date of discharge: 05/08/18 Attending physician: IFRAH MCGOVERN 05/07/18 09:00 Consult to Wound/ET Nurse [CONS] Routine Reason For Exam: wound eval 05/07/18 09:12 Consult to Physician [CONS] Routine Comment: Consulting Provider: SAM HOWARD Physician Instructions: Reason For Exam: right gluteal abscess Primary care physician: CURTIS HOYOS Hospitalization Condition: Fair Hospital course: Patient is 27-year-old female with diabetes mellitus type 2, presented with com plaints of a boil on her right buttocks. Patient has a history of medical noncompliance and has not taken her insulin. She was evaluated in ED. Ultrasound showed right gluteal abscess. She had hyperglycemia with glucose of 737 with normal bicarb of 24. She was started on iv Antibiotics and admitted.Patient was evaluated by surgeon, incision and drainage done. She was subsequently discharged home on 05/08/18. Total time spent on discharge,31 mins Disposition: [id number] TO HOME OR SELFCARE - Discharge Diagnoses (1) Hyponatremia Status: Acute (2) Hyponatremia Status: Acute (3) Abscess, gluteal, right Status: Acute (4) Hyperglycemia Status: Acute (5) Type 2 diabetes mellitus Status: Acute Qualifiers: Core Measure Documentation - Palliative Care Palliative Care/ Comfort Measures: Not Applicable - Core Measures Any of the following diagnoses?: none Exam - Constitutional Vitals: Temp Pulse Resp BP Pulse Ox 98.5 F 74 18 104/56 100 05/08/18 12:08 05/08/18 12:08 05/08/18 12:08 05/08/18 12:08 05/08/18 12:08 Plan Activity: no restrictions Diet: low fat, low cholesterol, low salt, diabetic Additional Instructions: 1.Follow up with PCP in 1 week. 2.Follow up with Dr. Ma in 2 weeks. 3.Follow up at wound clinic on 05/11/18. Follow up with: CURTIS HOYOS MD [Primary Care Provider] - 3-5 Days Forms: Work/School Release Form
== END 2018-05-08 16:36 | disposition home or self-care (01) | DRG 580 ==
LOC: ED 02:25 → 3A 09:07
PROVIDERS: ADMIT Hospitalist; ATTEND Internal Medicine
PROC: 0J990ZZ Drainage of Buttock Subcutaneous Tissue and Fascia, Open Approach (ICD-10-PCS; principal; 2018-05-07)
DX: L02.31 Cutaneous abscess of buttock (principal); E87.1 Hypo-osmolality and hyponatremia; L03.317 Cellulitis of buttock; E11.65 Type 2 diabetes mellitus with hyperglycemia; Z79.4 Long term (current) use of insulin
CPT/HCPCS: 36415; 76999; 80048; 80076; 81001; 82140; 82805; 82962; 83735; 84703; 85025; 85610; 85730; 87040; 87076; 87086; 87116; 87186; G0378; J1650; J1815; J3370; J7030; J7040

== ENCOUNTER 2018-12-07 19:21 | Emergency (ER) | payer MEDICAID ==
--- NOTE | 2018-12-07 19:39 | Event Note ---
ED Screening Note Date of service: 12/07/18 Time: 19:36 ED Screening Note: This is a 28 y.o. F. that presents to the ER with hyperglycemia for a few days. Reports diabetes type II managed by a diabetic clinic at [facility]. Reports a 500+ reading today. This initial assessment/diagnostic orders/clinical plan/treatment(s) is/are subject to change based on patients health status, clinical progression and re- assessment by fellow clinical providers in the ED. Further treatment and workup at subsequent clinical providers discretion. Patient/guardian urged not to elope from the ED as their condition may be serious if not clinically assessed and managed. Initial orders include: Labs Accucheck 468
[2018-12-07 20:09] LABS: Bacteria,Urine 1+ /HPF (Negative); Bilirubin,Urine NEG (Negative); Blood,Urine NEG (Negative); Color,Urine Straw (Yellow); Mucus,Urine FEW /HPF; Protein,Urine <15 mg/dL mg/dL (Negative); Urobilinogen,Urine < 2.0 mg/dL (<2.0)
[2018-12-07 20:10] LABS: Basophils % (Auto) 0.8 % (0.0-1.8); Eosinophils # (Auto) 0.1 K/mm3 (0.0-0.4); Eosinophils % (Auto) 1.9 % (0.0-4.3); Hematocrit 36.1 % (30.3-42.9); Hemoglobin 12.4 gm/dl (10.1-14.3); Mean Corpuscular HGB Conc 34 % (30-34); Mean Corpuscular Volume 89 fl (79-97); Monocytes # (Auto) 0.3 K/mm3 (0.0-0.8); Monocytes % (Auto) 5.8 % (0.0-7.3); Platelet Count 219 K/mm3 (140-440); Red Blood Count 4.04 M/mm3 (3.65-5.03); Red Cell Distribution Width 13.8 % (13.2-15.2)
[2018-12-07 20:29] LABS: BUN/Creatinine Ratio 6; Blood Urea Nitrogen 5 mg/dL (7-17); Calcium 8.8 mg/dL (8.4-10.2); Hemolysis Index 10
[2018-12-07] MEDS ORDERED: HumuLIN R IV ONE (22:29)
[2018-12-07] MEDS ORDERED: NACL 0.9% 1000 ML 1,000 ML IV ONE (22:29)
--- NOTE | 2018-12-07 22:49 | Emergency Department Report ---
ED General Adult HPI - General Chief complaint: Hyperglycemia Stated complaint: SUGAR HIGH Time Seen by Provider: 12/07/18 19:36 Source: patient Mode of arrival: Ambulatory Limitations: No Limitations - History of Present Illness Initial comments: H and presents to the emergency Department chief complaint elevated glucose levels. Patient has a history of insulin dependent diabetes and states she's taken her insulin as prescribed. Patient denies any recent illnesses or trauma. Patient denies abdominal pain, chest pain, shortness of breath. -: Gradual Improves with: none Worsens with: none Associated Symptoms: denies other symptoms Treatments Prior to Arrival: none - Related Data Previous Rx's Medication Instructions Recorded Last Taken Type Vit-Fe Fumar-FA [ 1 tab PO QDAY #30 tablet 08/18/16 09/23/16 Rx Vitamin] Vit Calc,Iron,Folic 1 each PO DAILY #30 tablet 02/24/17 Unknown Rx [ Vitamins] Insulin Lispro [HumaLOG VIAL] 10 units SQ AC #5 vial 03/16/18 Unknown Rx Ferrous Sulfate [Feosol 325 MG tab] 325 mg PO BID #60 tablet 04/09/18 Unknown Rx Insulin Lispro [HumaLOG VIAL] See Protocol SQ AC #10 ml 04/09/18 Unknown Rx Insulin NPH, Human [NovoLIN N] 18 unit SUB-Q BIDDIAB 30 Days 04/09/18 Unknown Rx units metFORMIN [Glucophage] 850 mg PO BID #60 tablet 04/09/18 Unknown Rx Allergies Allergy/AdvReac Type Severity Reaction Status Date / Time No Known Allergies Allergy Verified 08/18/16 13:33 ED Review of Systems ROS: Stated complaint: SUGAR HIGH Other details as noted in HPI Comment: All other systems reviewed and negative Constitutional: denies: chills, fever Eyes: denies: eye pain, eye discharge, vision change ENT: denies: ear pain, throat pain Respiratory: denies: cough, shortness of breath, wheezing Cardiovascular: denies: chest pain, palpitations Endocrine: no symptoms reported Gastrointestinal: denies: abdominal pain, nausea, diarrhea Genitourinary: denies: urgency, dysuria, discharge Musculoskeletal: denies: back pain, joint swelling, arthralgia Skin: denies: rash, lesions Neurological: denies: headache, weakness, paresthesias Psychiatric: denies: anxiety, depression Hematological/Lymphatic: denies: easy bleeding, easy bruising ED Past Medical Hx - Past Medical History Previous Medical History?: Yes Hx Hypertension: No Hx Heart Attack/AMI: No Hx Congestive Heart Failure: No Hx Diabetes: Yes Hx Deep Vein Thrombosis: No Hx Pulmonary Embolism: No Hx GERD: No Hx Liver Disease: No Hx Renal Disease: No Hx Sickle Cell Disease: Yes (sickle cell trait) Hx Arthritis: No Hx Headaches / Migraines: No Hx Seizures: No Hx Kidney Stones: No Hx Asthma: No Hx COPD: No Hx Tuberculosis: No Hx Dementia: No Hx HIV: No Additional medical history: sickle cell trait - Surgical History Past Surgical History?: Yes Hx Coronary Stent: No Hx Open Heart Surgery: No Hx Pacemaker: No Hx Internal Defibrillator: No Hx Cholecystectomy: No Hx Appendectomy: No Hx Breast Surgery: No Additional Surgical History: x3 - Social History Smoking Status: Never Smoker Substance Use Type: None - Medications Home Medications: Home Medications Medication Instructions Recorded Confirmed Last Taken Type Vit-Fe Fumar-FA [ 1 tab PO QDAY #30 tablet 08/18/16 05/08/18 09/23/16 Rx Vitamin] Vit Calc,Iron,Folic 1 each PO DAILY #30 tablet 02/24/17 05/08/18 Unknown Rx [ Vitamins] Insulin Lispro [HumaLOG VIAL] 10 units SQ AC #5 vial 03/16/18 05/08/18 Unknown Rx Ferrous Sulfate [Feosol 325 MG tab] 325 mg PO BID #60 tablet 04/09/18 05/08/18 Unknown Rx Insulin Lispro [HumaLOG VIAL] See Protocol SQ AC #10 ml 04/09/18 05/08/18 Unknown Rx Insulin NPH, Human [NovoLIN N] 18 unit SUB-Q BIDDIAB 30 Days 04/09/18 05/08/18 Unknown Rx units metFORMIN [Glucophage] 850 mg PO BID #60 tablet 04/09/18 05/08/18 Unknown Rx ED Physical Exam - General Limitations: No Limitations General appearance: alert, in no apparent distress - Head Head exam: Present: atraumatic, normocephalic - Eye Eye exam: Present: normal appearance, PERRL, EOMI - ENT ENT exam: Present: mucous membranes moist - Neck Neck exam: Present: normal inspection - Respiratory Respiratory exam: Present: normal lung sounds bilaterally. Absent: respiratory distress, wheezes, rales - Cardiovascular Cardiovascular Exam: Present: regular rate, normal rhythm. Absent: systolic murmur, diastolic murmur, rubs, gallop - GI/Abdominal GI/Abdominal exam: Present: soft, normal bowel sounds. Absent: distended, tenderness - Extremities Exam Extremities exam: Present: normal inspection - Back Exam Back exam: Present: normal inspection - Neurological Exam Neurological exam: Present: alert, oriented X3, CN II-XII intact. Absent: motor sensory deficit - Psychiatric Psychiatric exam: Present: normal affect, normal mood - Skin Skin exam: Present: warm, dry, intact, normal color. Absent: rash ED Course Vital Signs 12/07/18 12/07/18 12/07/18 19:33 21:56 22:00 Temperature 98.8 F 97.8 F Pulse Rate 88 77 Respiratory 14 19 Rate Blood Pressure 142/74 101/60 Blood Pressure 108/61 [Left] O2 Sat by Pulse 100 100 100 Oximetry 12/07/18 12/07/18 22:30 23:19 Temperature Pulse Rate Respiratory Rate Blood Pressure 93/63 93/63 Blood Pressure [Left] O2 Sat by Pulse 100 100 Oximetry ED Medical Decision Making - Lab Data Result diagrams: 12/07/18 19:54 12/07/18 19:54 Lab Results 12/07/18 12/07/18 12/07/18 Range/Units 19:39 19:40 19:54 WBC 6.0 (4.5-11.0) K/mm3 RBC 4.04 (3.65-5.03) M/mm3 Hgb 12.4 (10.1-14.3) gm/dl Hct 36.1 (30.3-42.9) % MCV 89 (79-97) fl MCH 31 (28-32) pg MCHC 34 (30-34) % RDW 13.8 (13.2-15.2) % Plt Count 219 (140-440) K/mm3 Lymph % (Auto) 34.0 (13.4-35.0) % [place] % (Auto) 5.8 (0.0-7.3) % Eos % (Auto) 1.9 (0.0-4.3) % Baso % (Auto) 0.8 (0.0-1.8) % Lymph # 2.0 (1.2-5.4) K/mm3 [place] # 0.3 (0.0-0.8) K/mm3 Eos # 0.1 (0.0-0.4) K/mm3 Baso # 0.0 (0.0-0.1) K/mm3 Seg Neutrophils % 57.5 (40.0-70.0) % Seg Neutrophils # 3.4 (1.8-7.7) K/mm3 Sodium (137-145) mmol/L Potassium (3.6-5.0) mmol/L Chloride (98-107) mmol/L Carbon Dioxide (22-30) mmol/L Anion Gap mmol/L BUN (7-17) mg/dL Creatinine (0.7-1.2) mg/dL Estimated GFR ml/min BUN/Creatinine Ratio % Glucose (65-100) mg/dL POC Glucose 468 H (70-105) Calcium (8.4-10.2) mg/dL Urine Color Straw (Yellow) Urine Turbidity Slightly-cloudy (Clear) Urine pH 6.0 (5.0-7.0) Ur Specific [place] 1.026 (1.003-1.030) Urine Protein <15 mg/dl (Negative) mg/dL Urine Glucose (UA) >=500 (Negative) mg/dL Urine Ketones Neg (Negative) mg/dL Urine Blood Neg (Negative) Urine Nitrite Neg (Negative) Urine Bilirubin Neg (Negative) Urine Urobilinogen < 2.0 (<2.0) mg/dL Ur Leukocyte Esterase Lg (Negative) Urine WBC (Auto) 18.0 H (0.0-6.0) /HPF Urine RBC (Auto) 15.0 (0.0-6.0) /HPF U Epithel Cells (Auto) 2.0 (0-13.0) /HPF Urine Bacteria (Auto) 1+ (Negative) /HPF Urine Mucus Few /HPF Urine Yeast (Budding) 1+ /HPF 12/07/18 12/07/18 12/08/18 Range/Units 19:54 23:29 00:23 WBC (4.5-11.0) K/mm3 RBC (3.65-5.03) M/mm3 Hgb (10.1-14.3) gm/dl Hct (30.3-42.9) % MCV (79-97) fl MCH (28-32) pg MCHC (30-34) % RDW (13.2-15.2) % Plt Count (140-440) K/mm3 Lymph % (Auto) (13.4-35.0) % [place] % (Auto) (0.0-7.3) % Eos % (Auto) (0.0-4.3) % Baso % (Auto) (0.0-1.8) % Lymph # (1.2-5.4) K/mm3 [place] # (0.0-0.8) K/mm3 Eos # (0.0-0.4) K/mm3 Baso # (0.0-0.1) K/mm3 Seg Neutrophils % (40.0-70.0) % Seg Neutrophils # (1.8-7.7) K/mm3 Sodium 131 L (137-145) mmol/L Potassium 3.9 (3.6-5.0) mmol/L Chloride 93.2 L (98-107) mmol/L Carbon Dioxide 21 L (22-30) mmol/L Anion Gap 21 mmol/L BUN 5 L (7-17) mg/dL Creatinine 0.8 (0.7-1.2) mg/dL Estimated GFR > 60 ml/min BUN/Creatinine Ratio 6 % Glucose 568 H* (65-100) mg/dL POC Glucose > 500 H 197 H (70-105) Calcium 8.8 (8.4-10.2) mg/dL Urine Color (Yellow) Urine Turbidity (Clear) Urine pH (5.0-7.0) Ur Specific [place] (1.003-1.030) Urine Protein (Negative) mg/dL Urine Glucose (UA) (Negative) mg/dL Urine Ketones (Negative) mg/dL Urine Blood (Negative) Urine Nitrite (Negative) Urine Bilirubin (Negative) Urine Urobilinogen (<2.0) mg/dL Ur Leukocyte Esterase (Negative) Urine WBC (Auto) (0.0-6.0) /HPF Urine RBC (Auto) (0.0-6.0) /HPF U Epithel Cells (Auto) (0-13.0) /HPF Urine Bacteria (Auto) (Negative) /HPF Urine Mucus /HPF Urine Yeast (Budding) /HPF Lab Results 12/07/18 12/07/18 12/07/18 Range/Units 19:39 19:40 19:54 WBC 6.0 (4.5-11.0) K/mm3 RBC 4.04 (3.65-5.03) M/mm3 Hgb 12.4 (10.1-14.3) gm/dl Hct 36.1 (30.3-42.9) % MCV 89 (79-97) fl MCH 31 (28-32) pg MCHC 34 (30-34) % RDW 13.8 (13.2-15.2) % Plt Count 219 (140-440) K/mm3 Lymph % (Auto) 34.0 (13.4-35.0) % Gar[place] % (Auto) 5.8 (0.0-7.3) % Eos % (Auto) 1.9 (0.0-4.3) % Baso % (Auto) 0.8 (0.0-1.8) % Lymph # 2.0 (1.2-5.4) K/mm3 Gar[place] # 0.3 (0.0-0.8) K/mm3 Eos # 0.1 (0.0-0.4) K/mm3 Baso # 0.0 (0.0-0.1) K/mm3 Seg Neutrophils % 57.5 (40.0-70.0) % Seg Neutrophils # 3.4 (1.8-7.7) K/mm3 Sodium (137-145) mmol/L Potassium (3.6-5.0) mmol/L Chloride (98-107) mmol/L Carbon Dioxide (22-30) mmol/L Anion Gap mmol/L BUN (7-17) mg/dL Creatinine (0.7-1.2) mg/dL Estimated GFR ml/min BUN/Creatinine Ratio % Glucose (65-100) mg/dL POC Glucose 468 H (70-105) Calcium (8.4-10.2) mg/dL Urine Color Straw (Yellow) Urine Turbidity Slightly-cloudy (Clear) Urine pH 6.0 (5.0-7.0) Ur Specific [place] 1.026 (1.003-1.030) Urine Protein <15 mg/dl (Negative) mg/dL Urine Glucose (UA) >=500 (Negative) mg/dL Urine Ketones Neg (Negative) mg/dL Urine Blood Neg (Negative) Urine Nitrite Neg (Negative) Urine Bilirubin Neg (Negative) Urine Urobilinogen < 2.0 (<2.0) mg/dL Ur Leukocyte Esterase Lg (Negative) Urine WBC (Auto) 18.0 H (0.0-6.0) /HPF Urine RBC (Auto) 15.0 (0.0-6.0) /HPF U Epithel Cells (Auto) 2.0 (0-13.0) /HPF Urine Bacteria (Auto) 1+ (Negative) /HPF Urine Mucus Few /HPF Urine Yeast (Budding) 1+ /HPF 12/07/18 12/07/18 12/08/18 Range/Units 19:54 23:29 00:23 WBC (4.5-11.0) K/mm3 RBC (3.65-5.03) M/mm3 Hgb (10.1-14.3) gm/dl Hct (30.3-42.9) % MCV (79-97) fl MCH (28-32) pg MCHC (30-34) % RDW (13.2-15.2) % Plt Count (140-440) K/mm3 Lymph % (Auto) (13.4-35.0) % [place] % (Auto) (0.0-7.3) % Eos % (Auto) (0.0-4.3) % Baso % (Auto) (0.0-1.8) % Lymph # (1.2-5.4) K/mm3 [place] # (0.0-0.8) K/mm3 Eos # (0.0-0.4) K/mm3 Baso # (0.0-0.1) K/mm3 Seg Neutrophils % (40.0-70.0) % Seg Neutrophils # (1.8-7.7) K/mm3 Sodium 131 L (137-145) mmol/L Potassium 3.9 (3.6-5.0) mmol/L Chloride 93.2 L (98-107) mmol/L Carbon Dioxide 21 L (22-30) mmol/L Anion Gap 21 mmol/L BUN 5 L (7-17) mg/dL Creatinine 0.8 (0.7-1.2) mg/dL Estimated GFR > 60 ml/min BUN/Creatinine Ratio 6 % Glucose 568 H* (65-100) mg/dL POC Glucose > 500 H 197 H (70-105) Calcium 8.8 (8.4-10.2) mg/dL Urine Color (Yellow) Urine Turbidity (Clear) Urine pH (5.0-7.0) Ur Specific [place] (1.003-1.030) Urine Protein (Negative) mg/dL Urine Glucose (UA) (Negative) mg/dL Urine Ketones (Negative) mg/dL Urine Blood (Negative) Urine Nitrite (Negative) Urine Bilirubin (Negative) Urine Urobilinogen (<2.0) mg/dL Ur Leukocyte Esterase (Negative) Urine WBC (Auto) (0.0-6.0) /HPF Urine RBC (Auto) (0.0-6.0) /HPF U Epithel Cells (Auto) (0-13.0) /HPF Urine Bacteria (Auto) (Negative) /HPF Urine Mucus /HPF Urine Yeast (Budding) /HPF - Medical Decision Making Patient given IV fluids and IV insulin Blood glucose level after IV insulin and fluids is 197 Critical Care Time: Yes Critical care time in (mins) excluding proc time.: 35 Critical care attestation.: If time is entered above; I have spent that time in minutes in the direct care of this critically ill patient, excluding procedure time. ED Disposition Clinical Impression: Hyperglycemia Disposition: [id number]-01 TO HOME OR SELFCARE Is pt being admited?: No Does the pt Need Aspirin: No Condition: Stable Instructions: Diabetic Hyperglycemia (ED) Additional Instructions: return if worse Referrals: HAZEL RODRIGUEZ MD [Primary Care Provider] - 3-5 Days [facility] [Provider Group] - 3-5 Days [facility] [Provider Group] - 3-5 Days Time of Disposition: 00:22
[2018-12-08 01:11] VITALS: BP 91/58
== END 2018-12-08 00:30 | disposition home or self-care (01) ==
LOC: ED 19:21
DX: E11.65 Type 2 diabetes mellitus with hyperglycemia (principal); D57.3 Sickle-cell trait; Z79.899 Other long term (current) drug therapy
CPT/HCPCS: 36415; 80048; 81001; 82962; 85025; 87086; 96361; 96374; 99283; J7030; J1815

== ENCOUNTER 2019-01-07 18:27 | Emergency (ER) | payer MEDICAID ==
--- NOTE | 2019-01-07 19:12 | Emergency Department Report ---
ED ENT HPI - General Chief complaint: Earache Stated complaint: RT EAR INFECTION Time Seen by Provider: 01/07/19 19:04 Source: patient Mode of arrival: Ambulatory Limitations: No Limitations - History of Present Illness MD complaint: ear pain (right) Onset/Timin -: days(s) Location: R ear Severity: moderate Severity scale (0 -10): 7 Quality: aching Consistency: constant Improves with: none Worsens with: none Associated Symptoms: hearing loss. denies: fever, cough, gum swelling, toothache, pain with swallowing, sore throat, tinnitus, discharge from ear, rhinorrhea - Related Data Previous Rx's Medication Instructions Recorded Last Taken Type Vit-Fe Fumar-FA [ 1 tab PO QDAY #30 tablet 08/18/16 09/23/16 Rx Vitamin] Vit Calc,Iron,Folic 1 each PO DAILY #30 tablet 02/24/17 Unknown Rx [ Vitamins] Insulin Lispro [HumaLOG VIAL] 10 units SQ AC #5 vial 03/16/18 Unknown Rx Ferrous Sulfate [Feosol 325 MG tab] 325 mg PO BID #60 tablet 04/09/18 Unknown Rx Insulin Lispro [HumaLOG VIAL] See Protocol SQ AC #10 ml 04/09/18 Unknown Rx Insulin NPH, Human [NovoLIN N] 18 unit SUB-Q BIDDIAB 30 Days 04/09/18 Unknown Rx units metFORMIN [Glucophage] 850 mg PO BID #60 tablet 04/09/18 Unknown Rx Neomy/Polymyx B/Hc (Otic) Soln 4 drops AD TID 7 Days #1 bottle 01/07/19 Unknown Rx [Cortisporin (Otic) Soln] Allergies Allergy/AdvReac Type Severity Reaction Status Date / Time No Known Allergies Allergy Verified 08/18/16 13:33 ED Dental HPI - General Chief complaint: Earache Stated complaint: RT EAR INFECTION Time Seen by Provider: 01/07/19 19:04 Source: patient Mode of arrival: Ambulatory Limitations: No Limitations - Related Data Previous Rx's Medication Instructions Recorded Last Taken Type Vit-Fe Fumar-FA [ 1 tab PO QDAY #30 tablet 08/18/16 09/23/16 Rx Vitamin] Vit Calc,Iron,Folic 1 each PO DAILY #30 tablet 02/24/17 Unknown Rx [ Vitamins] Insulin Lispro [HumaLOG VIAL] 10 units SQ AC #5 vial 03/16/18 Unknown Rx Ferrous Sulfate [Feosol 325 MG tab] 325 mg PO BID #60 tablet 04/09/18 Unknown Rx Insulin Lispro [HumaLOG VIAL] See Protocol SQ AC #10 ml 04/09/18 Unknown Rx Insulin NPH, Human [NovoLIN N] 18 unit SUB-Q BIDDIAB 30 Days 04/09/18 Unknown Rx units metFORMIN [Glucophage] 850 mg PO BID #60 tablet 04/09/18 Unknown Rx Neomy/Polymyx B/Hc (Otic) Soln 4 drops AD TID 7 Days #1 bottle 01/07/19 Unknown Rx [Cortisporin (Otic) Soln] Allergies Allergy/AdvReac Type Severity Reaction Status Date / Time No Known Allergies Allergy Verified 08/18/16 13:33 ED Review of Systems ROS: Stated complaint: RT EAR INFECTION Other details as noted in HPI Constitutional: denies: chills, fever ENT: ear pain (right). denies: throat pain Respiratory: denies: cough, shortness of breath, wheezing Cardiovascular: denies: chest pain, palpitations Musculoskeletal: denies: back pain, joint swelling, arthralgia Skin: denies: rash, lesions Neurological: denies: headache, weakness, paresthesias Psychiatric: denies: anxiety, depression ED Past Medical Hx - Past Medical History Hx Hypertension: No Hx Heart Attack/AMI: No Hx Congestive Heart Failure: No Hx Diabetes: Yes Hx Deep Vein Thrombosis: No Hx Pulmonary Embolism: No Hx GERD: No Hx Liver Disease: No Hx Renal Disease: No Hx Sickle Cell Disease: Yes (sickle cell trait) Hx Arthritis: No Hx Headaches / Migraines: No Hx Seizures: No Hx Kidney Stones: No Hx Asthma: No Hx COPD: No Hx Tuberculosis: No Hx Dementia: No Hx HIV: No Additional medical history: sickle cell trait - Surgical History Hx Coronary Stent: No Hx Open Heart Surgery: No Hx Pacemaker: No Hx Internal Defibrillator: No Hx Cholecystectomy: No Hx Appendectomy: No Hx Breast Surgery: No Additional Surgical History: x3 - Social History Smoking Status: Never Smoker Substance Use Type: None - Medications Home Medications: Home Medications Medication Instructions Recorded Confirmed Last Taken Type Vit-Fe Fumar-FA [ 1 tab PO QDAY #30 tablet 08/18/16 05/08/18 09/23/16 Rx Vitamin] Vit Calc,Iron,Folic 1 each PO DAILY #30 tablet 02/24/17 05/08/18 Unknown Rx [ Vitamins] Insulin Lispro [HumaLOG VIAL] 10 units SQ AC #5 vial 03/16/18 05/08/18 Unknown Rx Ferrous Sulfate [Feosol 325 MG tab] 325 mg PO BID #60 tablet 04/09/18 05/08/18 Unknown Rx Insulin Lispro [HumaLOG VIAL] See Protocol SQ AC #10 ml 04/09/18 05/08/18 Unknow n Rx Insulin NPH, Human [NovoLIN N] 18 unit SUB-Q BIDDIAB 30 Days 04/09/18 05/08/18 Unknown Rx units metFORMIN [Glucophage] 850 mg PO BID #60 tablet 04/09/18 05/08/18 Unknown Rx Neomy/Polymyx B/Hc (Otic) Soln 4 drops AD TID 7 Days #1 bottle 01/07/19 Unknown Rx [Cortisporin (Otic) Soln] ED Physical Exam - General Limitations: No Limitations - ENT ENT exam: Present: normal orophraynx, mucous membranes moist, TM's normal bilaterally. Absent: normal external ear exam (erythematous right external canal, normal right) - Neck Neck exam: Present: normal inspection - Respiratory Respiratory exam: Present: normal lung sounds bilaterally. Absent: respiratory distress - Cardiovascular Cardiovascular Exam: Present: regular rate, normal rhythm. Absent: systolic murmur, diastolic murmur, rubs, gallop - GI/Abdominal GI/Abdominal exam: Present: soft, normal bowel sounds - Neurological Exam Neurological exam: Present: alert, oriented X3 - Psychiatric Psychiatric exam: Present: normal affect, normal mood - Skin Skin exam: Present: warm, dry, intact, normal color. Absent: rash Critical care attestation.: If time is entered above; I have spent that time in minutes in the direct care of this critically ill patient, excluding procedure time. ED Disposition Clinical Impression: Otalgia of right ear Otitis externa Qualifiers: Otitis externa type: diffuse Chronicity: acute Laterality: right Qualified Code(s): H60.311 - Diffuse otitis externa, right ear Disposition: - TO HOME OR SELFCARE Is pt being admited?: No Condition: Stable Instructions: Otitis Externa (ED) Prescriptions: Neomy/Polymyx B/Hc (Otic) Soln [Cortisporin (Otic) Soln] 4 drops AD TID 7 Days #1 bottle Referrals: [facility]– [place][Note 2[place] [Outside] - 3-5 Days [facility] [Outside] - 3-5 Days [facility] [Outside] - 3-5 Days Forms: Work/School Release Form(ED) Time of Disposition: 19:55
[2019-01-07 20:08] VITALS: BP 113/70
== END 2019-01-07 20:08 | disposition home or self-care (01) ==
LOC: ED 18:27
DX: H60.311 Diffuse otitis externa, right ear (principal); E11.9 Type 2 diabetes mellitus without complications; D57.3 Sickle-cell trait; Z79.899 Other long term (current) drug therapy
CPT/HCPCS: 99282

== ENCOUNTER 2019-04-17 14:26 | Emergency (ER) | payer MEDICAID ==
[2019-04-17 14:46] VITALS: BP 118/61
--- NOTE | 2019-04-17 20:37 | Emergency Department Report ---
ED Headache HPI - General Chief Complaint: Headache Stated Complaint: SUGAR HIGH Time Seen by Provider: 04/17/19 19:39 Source: patient - History of Present Illness Initial Comments: This is a 28-year-old female here with her she reports that she is not having headache and achy in for couple days. Pain is located front of her head on and off. Patient reports that pain is achy and Excedrin taken without any relief. Denies any nausea or vomiting. Denies any dizziness or fever or chills. Denies any neck pain or stiffness. Patient is a diabetic blood sugar in triage is 201 and she is in insulin Timing/Duration: waxing and waning Quality: moderate (08/03) Head Injury Location: frontal Recent Head Trauma: occasional headaches Associated Symptoms: other (generalized aching). denies: confusion, fatigue, facial pain, fever/chills, flushing, loss of consciousness, nausea/vomiting, nasal congestion, nasal drainage, numbness in legs/feet, rash, seizures, sinus infection, stiff neck, vision changes, weakness Allergies/Adverse Reactions: Allergies No Known Allergies Allergy (Verified 08/18/16 13:33) Home Medications: Ambulatory Orders Vit-Fe Fumar-FA [ Vitamin] 1 tab PO QDAY #30 tablet 08/18/16 Vit Calc,Iron,Folic [ Vitamins] 1 each PO DAILY #30 tablet 02/24/17 Insulin Lispro [HumaLOG VIAL] 10 units SQ AC #5 vial 03/16/18 Ferrous Sulfate [Feosol 325 MG tab] 325 mg PO BID #60 tablet 04/09/18 Insulin Lispro [HumaLOG VIAL] See Protocol SQ AC #10 ml 04/09/18 Insulin NPH, Human [NovoLIN N] 18 unit SUB-Q BIDDIAB 30 Days units 04/09/18 metFORMIN [Glucophage] 850 mg PO BID #60 tablet 04/09/18 Neomy/Polymyx B/Hc (Otic) Soln [Cortisporin (Otic) Soln] 4 drops AD TID 7 Days #1 bottle 01/07/19 Acetaminophen/Codeine [Tylenol /Codeine # 3 tab] 1 tab PO Q8H PRN #9 tab 04/17/19 ED Review of Systems ROS: Stated complaint: SUGAR HIGH Other details as noted in HPI Constitutional: denies: chills, fever ENT: denies: throat pain, congestion Respiratory: denies: cough, shortness of breath, wheezing Cardiovascular: denies: chest pain, palpitations, edema, syncope Gastrointestinal: denies: abdominal pain, nausea, vomiting Genitourinary: denies: urgency, dysuria, hematuria Musculoskeletal: denies: back pain, joint swelling, arthralgia, myalgia Skin: denies: rash Neurological: headache. denies: weakness, numbness, paresthesias, confusion, abnormal gait, vertigo ED Past Medical Hx - Past Medical History Previous Medical History?: Yes Hx Hypertension: No Hx Heart Attack/AMI: No Hx Congestive Heart Failure: No Hx Diabetes: Yes Hx Deep Vein Thrombosis: No Hx Pulmonary Embolism: No Hx GERD: No Hx Liver Disease: No Hx Renal Disease: No Hx Sickle Cell Disease: Yes (sickle cell trait) Hx Arthritis: No Hx Headaches / Migraines: No Hx Seizures: No Hx Kidney Stones: No Hx Asthma: No Hx COPD: No Hx Tuberculosis: No Hx Dementia: No Hx HIV: No Additional medical history: sickle cell trait - Surgical History Past Surgical History?: Yes Hx Coronary Stent: No Hx Open Heart Surgery: No Hx Pacemaker: No Hx Internal Defibrillator: No Hx Cholecystectomy: No Hx Appendectomy: No Hx Breast Surgery: No Additional Surgical History: x3 - Family History Family history: hypertension - Social History Smoking Status: Never Smoker Substance Use Type: None - Medications Home Medications: Home Medications Medication Instructions Recorded Confirmed Last Taken Type Vit-Fe Fumar-FA [ 1 tab PO QDAY #30 tablet 08/18/16 05/08/18 09/23/16 Rx Vitamin] Vit Calc,Iron,Folic 1 each PO DAILY #30 tablet 02/24/17 05/08/18 Unknown Rx [ Vitamins] Insulin Lispro [HumaLOG VIAL] 10 units SQ AC #5 vial 03/16/18 05/08/18 Unknown Rx Ferrous Sulfate [Feosol 325 MG tab] 325 mg PO BID #60 tablet 04/09/18 05/08/18 Unknown Rx Insulin Lispro [HumaLOG VIAL] See Protocol SQ AC #10 ml 04/09/18 05/08/18 Unknown Rx Insulin NPH, Human [NovoLIN N] 18 unit SUB-Q BIDDIAB 30 Days 04/09/18 05/08/18 Unknown Rx units metFORMIN [Glucophage] 850 mg PO BID #60 tablet 04/09/18 05/08/18 Unknown Rx Neomy/Polymyx B/Hc (Otic) Soln 4 drops AD TID 7 Days #1 bottle 01/07/19 Unknown Rx [Cortisporin (Otic) Soln] Acetaminophen/Codeine [Tylenol 1 tab PO Q8H PRN #9 tab 04/17/19 Unknown Rx /Codeine # 3 tab] ED Physical Exam - General Limitations: No Limitations General appearance: alert, in no apparent distress - Head Head exam: Present: atraumatic, normocephalic - Expanded Head Exam Expanded Head exam: Absent: laceration, abrasion, contusion, hematoma, racoon eyes, butterfield's sign, general tenderness, tenderness of temporal artery, CSF rhinorrhea, CSF otorrhea - Eye Eye exam: Present: normal appearance, PERRL, EOMI Pupils: Present: normal accommodation - ENT ENT exam: Present: normal exam - Neck Neck exam: Present: normal inspection, full ROM. Absent: lymphadenopathy - Respiratory Respiratory exam: Present: normal lung sounds bilaterally. Absent: respiratory distress, chest wall tenderness - Cardiovascular Cardiovascular Exam: Present: regular rate, normal rhythm, normal heart sounds - GI/Abdominal GI/Abdominal exam: Present: soft, normal bowel sounds. Absent: distended, tenderness, organomegaly, mass - Extremities Exam Extremities exam: Present: normal inspection, full ROM, normal capillary refill, other (No cce. + 2 pulses in all extremities, no neurovascular compromise). Absent: tenderness, pedal edema, joint swelling, calf tenderness - Back Exam Back exam: Present: normal inspection, full ROM, other (ambulateswithout any difficulties). Absent: tenderness, CVA tenderness (R), CVA tenderness (L), muscle spasm, paraspinal tenderness, vertebral tenderness, rash noted ED Course Vital Signs 04/17/19 04/17/19 14:45 23:20 Temperature 98.7 F Pulse Rate 71 82 Respiratory 16 16 Rate Blood Pressure 118/61 O2 Sat by Pulse 100 100 Oximetry - Reevaluation(s) Reevaluation #1: 04/17/19 23:13 [place] 5/325 one tablet given in emergency room for pain. ED Medical Decision Making - Medical Decision Making This is a 28-year-old female here for complaint of headache. Physical findings for normal exam to include neurological exam. Patient is a diabetic and on insulin and metformin. By mouth blessed glucoses at 201. Her vital signs are stable and she is afebrile and she is no acute distress. With simple headache that has been relieved. She was given [place] 5/325 2 tablets by mouth and discharged home with her family members stable condition. Shoulder prescription for Tylenol 3 Critical care attestation.: If time is entered above; I have spent that time in minutes in the direct care of this critically ill patient, excluding procedure time. ED Disposition Clinical Impression: Headache Qualifiers: Headache type: unspecified Headache chronicity pattern: acute headache Intractability: not intractable Qualified Code(s): R51 - Headache Disposition: DC- TO HOME OR SELFCARE Is pt being admited?: No Does the pt Need Aspirin: No Condition: Stable Instructions: Acute Headache (ED) Additional Instructions: Followup with primary care doctor and 24-48 hours or return to the emergency room if his symptoms return or worsens. Please Do not drive or operate heavy machinery while taking Tylenol No. 3 as this medication causes drowsiness Prescriptions: Acetaminophen/Codeine [Tylenol /Codeine # 3 tab] 1 tab PO Q8H PRN #9 tab PRN Reason: Headache Referrals: PRIMARY CAREMD [Primary Care Provider] - 04/18/19 Forms: Accompanied Note, Work/School Release Form(ED)
[2019-04-17] MEDS ORDERED: HYDROcodone/ACETAMINOPHEN 5-325 MG TAB PO ONE (23:09)
== END 2019-04-17 23:20 | disposition home or self-care (01) ==
LOC: ED 14:26
DX: R51 Headache (principal); E11.9 Type 2 diabetes mellitus without complications; Z98.890 Other specified postprocedural states; Z79.899 Other long term (current) drug therapy
CPT/HCPCS: 36415; 82962; 84703

== ENCOUNTER 2020-01-23 20:36 | Emergency (ER) | payer MEDICAID ==
[2020-01-23] MEDS ORDERED: SODIUM CHLORIDE 0.9% 1000 ML 1,000 ML IV ONE (20:53)
--- NOTE | 2020-01-23 20:59 | Emergency Department Report ---
ED General Adult HPI - General Chief complaint: Abdominal Pain Stated complaint: HY[ERGLYCEMIA PUI?: Yes Time Seen by Provider: 01/23/20 20:47 Source: patient, EMS Mode of arrival: Stretcher Limitations: No Limitations - History of Present Illness Initial comments: Patient is a 29-year-old female who presents emergency room with complaints of hyperglycemia and abdominal pain. Patient states her abdominal pain started yesterday. Patient states her abdominal pain is worsening. Patient states the abdominal pain is a 8 out of 10. Patient states the pain is in her bilateral lower quadrants. Patient denies nausea and vomiting. Patient denies chest pain or shortness of breath. Patient denies fever and chills. Patient denies dysuria. Patient states she is having nocturia and urinary frequency. Patient states her blood sugar has been up for months. Patient states she ran out of her weekly diabetes injection. Patient states she still has insulin. Patient states she has not followed up with her primary care for many months for diabetes. Patient denies recent travel. Patient denies recent international travel. Patient denies exposure to the novel coronavirus. Patient denies sick contacts. Patient denies fever and chills. Patient denies cough. Patient denies diarrhea. Patient denies coming in contact with anybody with symptoms of the novel coronavirus. -: Sudden Location: abdomen Severity scale (0 -10): 8 Quality: stabbing Consistency: constant Improves with: rest Worsens with: movement Associated Symptoms: weakness. denies: confusion, chest pain, cough, diaphoresis, fever/chills, headaches, loss of appetite, malaise, nausea/vomiting, rash, seizure, shortness of breath, syncope - Related Data Previous Rx's Medication Instructions Recorded Last Taken Type Vit-Fe Fumar-FA [ 1 tab PO QDAY #30 tablet 08/18/16 09/23/16 Rx Vitamin] Vit Calc,Iron,Folic 1 each PO DAILY #30 tablet 02/24/17 Unknown Rx [ Vitamins] Insulin Lispro [HumaLOG VIAL] 10 units SQ AC #5 vial 03/16/18 Unknown Rx Ferrous Sulfate [Feosol 325 MG tab] 325 mg PO BID #60 tablet 04/09/18 Unknown Rx Insulin Lispro [HumaLOG VIAL] See Protocol SQ AC #10 ml 04/09/18 Unknown Rx Insulin NPH, Human [NovoLIN N] 18 unit SUB-Q BIDDIAB 30 Days 04/09/18 Unknown Rx units metFORMIN [Glucophage] 850 mg PO BID #60 tablet 04/09/18 Unknown Rx Neomy/Polymyx B/Hc (Otic) Soln 4 drops AD TID 7 Days #1 bottle 01/07/19 Unknown Rx [Cortisporin (Otic) Soln] Acetaminophen/Codeine [Tylenol 1 tab PO Q8H PRN #9 tab 04/17/19 Unknown Rx /Codeine # 3 tab] Naproxen 500 mg PO Q12H PRN #12 tablet 11/11/19 Unknown Rx Ciprofloxacin HCl [Ciprofloxacin 500 mg PO Q12HR 7 Days #14 tab 01/24/20 Unknown Rx TAB] Fluconazole (Nf) [Diflucan TAB] 150 mg PO ONCE 1 Days #1 tablet 01/24/20 Unknown Rx Allergies Allergy/AdvReac Type Severity Reaction Status Date / Time No Known Allergies Allergy Verified 08/18/16 13:33 ED Review of Systems ROS: Stated complaint: HY[ERGLYCEMIA Other details as noted in HPI Constitutional: denies: chills, fever Eyes: denies: eye pain, eye discharge, vision change ENT: denies: ear pain, throat pain Respiratory: denies: cough, shortness of breath, wheezing Cardiovascular: denies: chest pain, palpitations Endocrine: no symptoms reported, increased urine Gastrointestinal: abdominal pain. denies: nausea, vomiting, diarrhea Genitourinary: frequency. denies: urgency, dysuria, discharge Musculoskeletal: denies: back pain, joint swelling, arthralgia Skin: denies: rash, lesions Neurological: denies: headache, weakness, paresthesias Psychiatric: denies: anxiety, depression Hematological/Lymphatic: denies: easy bleeding, easy bruising ED Past Medical Hx - Past Medical History Previous Medical History?: Yes Hx Hypertension: No Hx Heart Attack/AMI: No Hx Congestive Heart Failure: No Hx Diabetes: Yes Hx Deep Vein Thrombosis: No Hx Pulmonary Embolism: No Hx GERD: No Hx Liver Disease: No Hx Renal Disease: No Hx Sickle Cell Disease: Yes (sickle cell trait) Hx Arthritis: No Hx Headaches / Migraines: No Hx Seizures: No Hx Kidney Stones: No Hx Asthma: No Hx COPD: No Hx Tuberculosis: No Hx Dementia: No Hx HIV: No Additional medical history: sickle cell trait - Surgical History Past Surgical History?: Yes Hx Coronary Stent: No Hx Open Heart Surgery: No Hx Pacemaker: No Hx Internal Defibrillator: No Hx Cholecystectomy: No Hx Appendectomy: No Hx Breast Surgery: No Additional Surgical History: x3 - Family History Family history: no significant - Social History Smoking Status: Never Smoker Substance Use Type: None - Medications Home Medications: Home Medications Medication Instructions Recorded Confirmed Last Taken Type Vit-Fe Fumar-FA [ 1 tab PO QDAY #30 tablet 08/18/16 05/08/18 09/23/16 Rx Vitamin] Vit Calc,Iron,Folic 1 each PO DAILY #30 tablet 02/24/17 05/08/18 Unknown Rx [ Vitamins] Insulin Lispro [HumaLOG VIAL] 10 units SQ AC #5 vial 03/16/18 05/08/18 Unknown Rx Ferrous Sulfate [Feosol 325 MG tab] 325 mg PO BID #60 tablet 04/09/18 05/08/18 Unknown Rx Insulin Lispro [HumaLOG VIAL] See Protocol SQ AC #10 ml 04/09/18 05/08/18 Unknown Rx Insulin NPH, Human [NovoLIN N] 18 unit SUB-Q BIDDIAB 30 Days 04/09/18 05/08/18 Unknown Rx units metFORMIN [Glucophage] 850 mg PO BID #60 tablet 04/09/18 05/08/18 Unknown Rx Neomy/Polymyx B/Hc (Otic) Soln 4 drops AD TID 7 Days #1 bottle 01/07/19 Unknown Rx [Cortisporin (Otic) Soln] Acetaminophen/Codeine [Tylenol 1 tab PO Q8H PRN #9 tab 04/17/19 Unknown Rx /Codeine # 3 tab] Naproxen 500 mg PO Q12H PRN #12 tablet 11/11/19 Unknown Rx Ciprofloxacin HCl [Ciprofloxacin 500 mg PO Q12HR 7 Days #14 tab 01/24/20 Unknown Rx TAB] Fluconazole (Nf) [Diflucan TAB] 150 mg PO ONCE 1 Days #1 tablet 01/24/20 Unknown Rx ED Physical Exam - General General appearance: alert, in no apparent distress - Head Head exam: Present: atraumatic, normocephalic - Eye Eye exam: Present: normal appearance - ENT ENT exam: Present: mucous membranes moist - Neck Neck exam: Present: normal inspection - Respiratory Respiratory exam: Present: normal lung sounds bilaterally. Absent: respiratory distress - Cardiovascular Cardiovascular Exam: Present: regular rate, normal rhythm. Absent: systolic murmur, diastolic murmur, rubs, gallop - GI/Abdominal GI/Abdominal exam: Present: soft, tenderness (Lower quadrant tenderness), normal bowel sounds - Extremities Exam Extremities exam: Present: normal inspection - Back Exam Back exam: Present: normal inspection - Neurological Exam Neurological exam: Present: alert, oriented X3 - Psychiatric Psychiatric exam: Present: normal affect, normal mood - Skin Skin exam: Present: warm, dry, intact, normal color. Absent: rash ED Course Vital Signs 01/23/20 01/23/20 01/23/20 20:50 20:54 21:00 Temperature 98.3 F Pulse Rate 73 82 71 Respiratory 13 16 14 Rate Blood Pressure 115/67 Blood Pressure 115/67 [Right] O2 Sat by Pulse 100 98 100 Oximetry 01/23/20 01/23/20 01/23/20 21:16 21:30 21:45 Temperature Pulse Rate 70 87 59 L Respiratory 13 12 11 L Rate Blood Pressure 109/68 114/73 104/64 Blood Pressure [Right] O2 Sat by Pulse 97 100 100 Oximetry 01/23/20 01/23/20 01/23/20 22:00 22:15 22:33 Temperature Pulse Rate 63 70 86 Respiratory 17 14 17 Rate Blood Pressure 105/65 109/64 109/64 Blood Pressure [Right] O2 Sat by Pulse 95 100 90 Oximetry 01/23/20 01/23/20 01/23/20 22:45 23:00 23:15 Temperature Pulse Rate 76 73 63 Respiratory 14 11 L 12 Rate Blood Pressure 106/60 116/59 116/54 Blood Pressure [Right] O2 Sat by Pulse 100 100 100 Oximetry 01/23/20 23:30 Temperature Pulse Rate 84 Respiratory 17 Rate Blood Pressure 102/48 Blood Pressure [Right] O2 Sat by Pulse 99 Oximetry - Reevaluation(s) Reevaluation #1: Patient states she is feeling better. Patient states the pain has improved. 01/23/20 23:01 Reevaluation #2: I discussed all results and clinical findings with patient. I discussed plan of care with patient. Patient agrees with plan of care. Patient is stable for discharge. Patient will be discharged home. Patient given discharge instructions. Patient voiced understanding of discharge instructions. 01/24/20 00:38 ED Medical Decision Making - Lab Data Result diagrams: 01/23/20 21:15 01/23/20 21:15 - Radiology Data Radiology results: report reviewed CT OF THE ABDOMEN AND PELVIS WITH INTRAVENOUS CONTRAST INDICATION / CLINICAL INFORMATION: Patient complains of abdominal pain. TECHNIQUE: The patient received 100 cc Omnipaque [address] scans at this location are performed using CT dose reduction for ALARA by means of automated exposure control. COMPARISON: 08/15/15. FINDINGS: ABDOMEN: The liver measures 22 cm in length and demonstrates normal density without focal lesion. The appearance of the liver has not changed. The spleen measures 12 cm in length. The gallbladder is contracted without gallstones. The bile ducts, pancreas, adrenal glands, kidneys and bowel demonstrate no significant abnormality. No adenopathy is seen. The lung bases are clear. PELVIS: The urinary bladder is mildly distended extending to the top of the SI joints. The distal ureters are normal. The uterus and adnexal regions are unremarkable. The appendix is not seen. There is no evidence of diverticulitis. I do not identify a hernia. No acute osseous abnormality is seen. IMPRESSION: 1. Mildly distended urinary bladder. 2. Hepatomegaly has not changed since 2016. 3. No other significant abnormality. - Medical Decision Making Patient is a 29-year-old female that presents emergency room with complaints of lower abdominal pain and hyperglycemia. Patient had labs done. Patient's labs were unremarkable except for hyperglycemia. Patient given fluids and insulin. Patient blood sugar normalized. Patient responded well to treatment. Patient's abdominal pain resolved with fluids and insulin. Patient had a CT scan of the abdomen which showed no acute findings. Patient had a urinalysis done which showed a UTI. Patient given antibiotics for UTI. Patient stable for discharge. Patient discharged home. - Differential Diagnosis Hyperglycemia, DKA, HHS, uncontrolled diabetes, UTI, abdominal pain Critical care attestation.: If time is entered above; I have spent that time in minutes in the direct care of this critically ill patient, excluding procedure time. ED Disposition Clinical Impression: Hyperglycemia Abdominal pain Qualifiers: Abdominal location: lower abdomen, unspecified Qualified Code(s): R10.30 - Lower abdominal pain, unspecified Uncontrolled diabetes mellitus Qualifiers: Diabetes mellitus type: type 2 Glycemic state: with hyperglycemia Qualified Code(s): E11.65 - Type 2 diabetes mellitus with hyperglycemia UTI (urinary tract infection) Qualifiers: Urinary tract infection type: acute cystitis Hematuria presence: with hematuria Qualified Code(s): N30.01 - Acute cystitis with hematuria Disposition: DC-01 TO HOME OR SELFCARE Is pt being admited?: No Does the pt Need Aspirin: No Condition: Stable Instructions: Urinary Tract Infection in Women (ED), How to Check Your Blood Sugar (ED), Diabetes Mellitus Type 2 in Adults (ED), Meal Planning with Diabetes Exchanges (DC), Abdominal Pain (ED) Additional Instructions: Patient to follow-up with primary care in 2 to 3 days. Patient to follow-up with anesthesia technician in 2 to 3 days. Patient to rest. Patient to increase water. Patient to eat a diabetic diet. Patient to monitor blood sugar. Patient to keep a blood sugar log. Patient to take blood sugar logs to follow- up appointments. Patient to continue all medications. Patient to return to the ER if condition worsens, changes or new symptoms arise. Prescriptions: Ciprofloxacin HCl [Ciprofloxacin TAB] 500 mg PO Q12HR 7 Days #14 tab Fluconazole (Nf) [Diflucan TAB] 150 mg PO ONCE 1 Days #1 tablet Referrals: JOSEPHINE FELIZ MD [Primary Care Provider] - 2-3 Days Forms: Work/School Release Form(ED) Time of Disposition: 00:36
[2020-01-23 21:29] LABS: Basophils % (Auto) 0.4 % (0.0-1.8); Eosinophils # (Auto) 0.1 K/mm3 (0.0-0.4); Eosinophils % (Auto) 1.2 % (0.0-4.3); Hematocrit 31.7 % (30.3-42.9); Hemoglobin 10.9 gm/dl (10.1-14.3); Lymphocytes # (Auto) 1.7 K/mm3 (1.2-5.4); Lymphocytes % (Auto) 28.6 % (13.4-35.0); Mean Corpuscular HGB Conc 34 % (30-34); Mean Corpuscular Volume 88 fl (79-97); Monocytes # (Auto) 0.4 K/mm3 (0.0-0.8); Monocytes % (Auto) 7.3 % (0.0-7.3); Platelet Count 200 K/mm3 (140-440); Red Blood Count 3.61 M/mm3 (3.65-5.03); Red Cell Distribution Width 13.4 % (13.2-15.2)
[2020-01-23 21:51] LABS: Alanine Aminotransferase 9 units/L (7-56); Albumin 3.6 g/dL (3.9-5); Blood Urea Nitrogen 6 mg/dL (7-17); Calcium 8.9 mg/dL (8.4-10.2); Hemolysis Index 6
[2020-01-23 21:54] LABS: BUN/Creatinine Ratio 9
[2020-01-23 21:56] LABS: Bilirubin,Direct < 0.2 mg/dL (0-0.2)
[2020-01-23] MEDS ORDERED: INSULIN REGULAR, HUMAN 100 UNITS/1 ML ONE (22:00)
[2020-01-23] MEDS ORDERED: INSULIN REGULAR, HUMAN 100 UNIT/ML 3ML VIAL IV ONE (22:06)
--- NOTE | 2020-01-23 22:53 | Cat Scan Report ---
CT OF THE ABDOMEN AND PELVIS WITH INTRAVENOUS CONTRAST INDICATION / CLINICAL INFORMATION: Patient complains of abdominal pain. TECHNIQUE: The patient received 100 cc Omnipaque [address] scans at this location are performed using CT dose reduction for ALARA by means of automated exposure control. COMPARISON: 08/15/15. FINDINGS: ABDOMEN: The liver measures 22 cm in length and demonstrates normal density without focal lesion. The appearance of the liver has not changed. The spleen measures 12 cm in length. The gallbladder is con tracted without gallstones. The bile ducts, pancreas, adrenal glands, kidneys and bowel demonstrate n o significant abnormality. No adenopathy is seen. The lung bases are clear. PELVIS: The urinary bladder is mildly distended extending to the top of the SI joints. The distal ure ters are normal. The uterus and adnexal regions are unremarkable. The appendix is not seen. There is no evidence of diverticulitis. I do not identify a hernia. No acute osseous abnormality is seen. IMPRESSION: 1. Mildly distended urinary bladder. 2. Hepatomegaly has not changed since 2016. 3. No other significant abnormality. Signer Name: Shayne Holliday MD Signed: 01/23/2020 10:49 PM Workstation Name: [id number]
[2020-01-23 23:47] VITALS: BP 102/48
[2020-01-24 00:04] LABS: Bilirubin,Urine NEG (Negative); Blood,Urine NEG (Negative); Color,Urine Colorless (Yellow); Mucus,Urine FEW /HPF; Protein,Urine <15 mg/dL mg/dL (Negative); Urobilinogen,Urine < 2.0 mg/dL (<2.0)
== END 2020-01-24 01:05 | disposition home or self-care (01) ==
LOC: ED 20:36
DX: E11.65 Type 2 diabetes mellitus with hyperglycemia (principal); N39.0 Urinary tract infection, site not specified; Z79.4 Long term (current) use of insulin; Z79.899 Other long term (current) drug therapy
CPT/HCPCS: 36415; 74177; 80048; 80076; 81001; 82805; 82962; 83690; 84703; 85025; 87086; 96361; 96374; 99285; J7030; Q9967; J1815

== ENCOUNTER 2020-04-05 02:52 | Emergency (ER) | payer MEDICAID ==
[2020-04-05 03:15] VITALS: BP 143/71
--- NOTE | 2020-04-05 03:57 | Emergency Department Report ---
ED Abdominal Pain HPI - General Chief Complaint: Hyperglycemia Stated Complaint: EMESIS/HIGH BS/LOSS OF TASTE/SMELL Time Seen by Provider: 04/05/20 03:50 Source: patient Mode of arrival: Ambulatory Limitations: No Limitations - History of Present Illness Initial Comments: Patient is a 29-year-old female that presents emergency room with complaints of nausea, vomiting, abdominal pain and elevated blood sugar. Patient states her symptoms been going on for 4 days. Patient denies blood in her vomitus. Patient states able to hold down fluids but is unable to hold down food. Patient states she is diabetic and she is taking her prescribed medications as directed. Patient states she is not sure why her blood sugar is elevated. Patient states that her abdominal pain is better at this time. Patient states it was a 3 out of 10 but is now a 0 out of 10. Patient denies chest pain shortness of breath. Patient denies fever and chills. Patient denies cough. Patient denies recent travel. Patient denies recent international travel. Patient denies exposure to the novel coronavirus. Patient denies sick contacts. Patient denies fever and chills. Patient denies cough. Patient denies diarrhea. Patient denies coming in contact with anybody with symptoms of the novel coronavirus. Patient states she lost her smell and taste on March 19, 2020. Patient states she has not been tested for Covid. MD Complaint: abdominal pain -: Sudden Location: diffuse Radiation: none Migration to: no migration Severity scale (0 -10): 0 Consistency: now resolved Improves With: rest Worsens With: eating, vomiting Associated Symptoms: nausea, vomiting. denies: diarrhea, fever, chills, constipation, dysuria, hematemesis, hematochezia, melena, hematuria, anorexia, syncope - Related Data LMP (females 10-50): last week Previous Rx's Medication Instructions Recorded Last Taken Type Vit-Fe Fumar-FA [ 1 tab PO QDAY #30 tablet 08/18/16 09/23/16 Rx Vitamin] Vit Calc,Iron,Folic 1 each PO DAILY #30 tablet 02/24/17 Unknown Rx [ Vitamins] Insulin Lispro [HumaLOG VIAL] 10 units SQ AC #5 vial 03/16/18 Unknown Rx Ferrous Sulfate [Feosol 325 MG tab] 325 mg PO BID #60 tablet 04/09/18 Unknown Rx Insulin Lispro [HumaLOG VIAL] See Protocol SQ AC #10 ml 04/09/18 Unknown Rx Insulin NPH, Human [NovoLIN N] 18 unit SUB-Q BIDDIAB 30 Days 04/09/18 Unknown Rx units metFORMIN [Glucophage] 850 mg PO BID #60 tablet 04/09/18 Unknown Rx Neomy/Polymyx B/Hc (Otic) Soln 4 drops AD TID 7 Days #1 bottle 01/07/19 Unknown Rx [Cortisporin (Otic) Soln] Acetaminophen/Codeine [Tylenol 1 tab PO Q8H PRN #9 tab 04/17/19 Unknown Rx /Codeine # 3 tab] Naproxen 500 mg PO Q12H PRN #12 tablet 11/11/19 Unknown Rx Ciprofloxacin HCl [Ciprofloxacin 500 mg PO Q12HR 7 Days #14 tab 01/24/20 Unknown Rx TAB] Fluconazole (Nf) [Diflucan TAB] 150 mg PO ONCE 1 Days #1 tablet 01/24/20 Unknown Rx Ondansetron [Zofran Odt] 4 mg PO Q6HR PRN #20 tab.rapdis 04/05/20 Unknown Rx Allergies Allergy/AdvReac Type Severity Reaction Status Date / Time No Known Allergies Allergy Verified 08/18/16 13:33 ED Review of Systems ROS: Stated complaint: EMESIS/HIGH BS/LOSS OF TASTE/SMELL Other details as noted in HPI Constitutional: denies: chills, fever Eyes: denies: eye pain, eye discharge, vision change ENT: denies: ear pain, throat pain Respiratory: denies: cough, shortness of breath, wheezing Cardiovascular: denies: chest pain, palpitations Endocrine: no symptoms reported Gastrointestinal: abdominal pain, nausea, vomiting. denies: diarrhea, constipation, hematemesis, melena, hematochezia Genitourinary: denies: urgency, dysuria, discharge Musculoskeletal: denies: back pain, joint swelling, arthralgia Skin: denies: rash, lesions Neurological: denies: headache, weakness, paresthesias Psychiatric: denies: anxiety, depression Hematological/Lymphatic: denies: easy bleeding, easy bruising ED Past Medical Hx - Past Medical History Previous Medical History?: Yes Hx Hypertension: No Hx Heart Attack/AMI: No Hx Congestive Heart Failure: No Hx Diabetes: Yes Hx Deep Vein Thrombosis: No Hx Pulmonary Embolism: No Hx GERD: No Hx Liver Disease: No Hx Renal Disease: No Hx Sickle Cell Disease: Yes (sickle cell trait) Hx Arthritis: No Hx Headaches / Migraines: No Hx Seizures: No Hx Kidney Stones: No Hx Asthma: No Hx COPD: No Hx Tuberculosis: No Hx Dementia: No Hx HIV: No Additional medical history: sickle cell trait - Surgical History Past Surgical History?: Yes Hx Coronary Stent: No Hx Open Heart Surgery: No Hx Pacemaker: No Hx Internal Defibrillator: No Hx Cholecystectomy: No Hx Appendectomy: No Hx Breast Surgery: No Additional Surgical History: x3 - Family History Family history: no significant - Social History Smoking Status: Never Smoker Substance Use Type: None - Medications Home Medications: Home Medications Medication Instructions Recorded Confirmed Last Taken Type Vit-Fe Fumar-FA [ 1 tab PO QDAY #30 tablet 08/18/16 05/08/18 09/23/16 Rx Vitamin] Vit Calc,Iron,Folic 1 each PO DAILY #30 tablet 02/24/17 05/08/18 Unknown Rx [ Vitamins] Insulin Lispro [HumaLOG VIAL] 10 units SQ AC #5 vial 03/16/18 05/08/18 Unknown Rx Ferrous Sulfate [Feosol 325 MG tab] 325 mg PO BID #60 tablet 04/09/18 05/08/18 Unknown Rx Insulin Lispro [HumaLOG VIAL] See Protocol SQ AC #10 ml 04/09/18 05/08/18 Unknown Rx Insulin NPH, Human [NovoLIN N] 18 unit SUB-Q BIDDIAB 30 Days 04/09/18 05/08/18 Unknown Rx units metFORMIN [Glucophage] 850 mg PO BID #60 tablet 04/09/18 05/08/18 Unknown Rx Neomy/Polymyx B/Hc (Otic) Soln 4 drops AD TID 7 Days #1 bottle 01/07/19 Unknown Rx [Cortisporin (Otic) Soln] Acetaminophen/Codeine [Tylenol 1 tab PO Q8H PRN #9 tab 04/17/19 Unknown Rx /Codeine # 3 tab] Naproxen 500 mg PO Q12H PRN #12 tablet 11/11/19 Unknown Rx Ciprofloxacin HCl [Ciprofloxacin 500 mg PO Q12HR 7 Days #14 tab 01/24/20 Unknown Rx TAB] Fluconazole (Nf) [Diflucan TAB] 150 mg PO ONCE 1 Days #1 tablet 01/24/20 Unknown Rx Ondansetron [Zofran Odt] 4 mg PO Q6HR PRN #20 tab.rapdis 04/05/20 Unknown Rx ED Physical Exam - General Limitations: No Limitations General appearance: alert, in no apparent distress - Head Head exam: Present: atraumatic, normocephalic - Eye Eye exam: Present: normal appearance - ENT ENT exam: Present: mucous membranes moist - Neck Neck exam: Present: normal inspection - Respiratory Respiratory exam: Present: normal lung sounds bilaterally. Absent: respiratory distress - Cardiovascular Cardiovascular Exam: Present: regular rate, normal rhythm. Absent: systolic murmur, diastolic murmur, rubs, gallop - GI/Abdominal GI/Abdominal exam: Present: soft, normal bowel sounds. Absent: distended, tenderness, guarding - Extremities Exam Extremities exam: Present: normal inspection - Back Exam Back exam: Present: normal inspection - Neurological Exam Neurological exam: Present: alert, oriented X3 - Psychiatric Psychiatric exam: Present: normal affect, normal mood - Skin Skin exam: Present: warm, dry, intact, normal color. Absent: rash ED Course Vital Signs 04/05/20 04/05/20 03:13 04:18 Temperature 98 F Pulse Rate 107 H Respiratory 16 18 Rate Blood Pressure 143/71 [Left] O2 Sat by Pulse 100 Oximetry - Reevaluation(s) Reevaluation #1: Patient given meds and fluids. Patient responded well. Patient states she is feeling better. I discussed all results and clinical findings with patient. I discussed plan of care with patient. Patient agrees with plan of care. Patient is stable for discharge. Patient will be discharged home. Patient given discharge instructions. Patient voiced understanding of discharge instructions. 04/05/20 05:32 ED Medical Decision Making - Lab Data Result diagrams: 04/05/20 03:26 04/05/20 03:26 - Medical Decision Making Patient is a 29-year-old female that presents emergency room with complaints of abdominal pain, nausea, vomiting, elevated blood sugar. Patient's blood sugar was elevated and patient was given insulin. Patient's labs except for the hyperglycemia were essentially unremarkable except for hypokalemia of 3.4. Patient's WBC was negative. Patient's bicarb and pH were normal. Patient given fluids and Zofran. Patient responded well. Patient's nausea resolved. Patient's abdominal pain resolved. Patient is stable for discharge. Patient discharged home. - Differential Diagnosis DKA, hyperglycemia, abdominal pain, gastroenteritis, Covid, Critical care attestation.: If time is entered above; I have spent that time in minutes in the direct care of this critically ill patient, excluding procedure time. ED Disposition Clinical Impression: Hypokalemia, Hyperglycemia, Gastroenteritis Abdominal pain Qualifiers: Abdominal location: generalized Qualified Code(s): R10.84 - Generalized abdominal pain Disposition: TO HOME OR SELFCARE Is pt being admited?: No Does the pt Need Aspirin: No Condition: Stable Instructions: Viral Gastroenteritis, Adult, [id number], Hyperglycemia, Hyperglycemia, [id number], Abdominal Pain, Adult, [id number], Potassium Content of Foods Additional Instructions: Patient to follow-up with primary care in 2 to 3 days. Patient to follow-up with c++ quant developer in 2 to 3 days. Patient to rest. Patient to increase water. Patient to have Covid testing done. Patient to self quarantine. Patient to eat a brat diet. Patient to eat a diabetic diet. Patient to monitor blood sugars. Patient take blood sugar log to all follow-up appointments.. Patient to take Tylenol or ibuprofen as needed for pain. Patient to take meds as directed. Patient to return to the ER if condition worsens, changes or new symptoms arise. Prescriptions: Ondansetron [Zofran Odt] 4 mg PO Q6HR PRN #20 tab.rapdis PRN Reason: Nausea And Vomiting Referrals: JOSEPHINE FELIZ MD [Primary Care Provider] - 2-3 Days Time of Disposition: 06:16
[2020-04-05] MEDS ORDERED: ONDANSETRON 4 MG/2 ML INJ IV ONE (04:12)
[2020-04-05] MEDS ORDERED: SODIUM CHLORIDE 0.9% 1000 ML 1,000 ML IV ONE (04:13)
[2020-04-05 04:51] LABS: Basophils % (Auto) 0.4 % (0.0-1.8); Eosinophils % (Auto) 0.4 % (0.0-4.3); Hematocrit 34.4 % (30.3-42.9); Hemoglobin 11.9 gm/dl (10.1-14.3); Lymphocytes # (Auto) 1.9 K/mm3 (1.2-5.4); Lymphocytes % (Auto) 20.9 % (13.4-35.0); Mean Corpuscular HGB Conc 35 % (30-34); Mean Corpuscular Volume 86 fl (79-97); Monocytes # (Auto) 0.6 K/mm3 (0.0-0.8); Monocytes % (Auto) 6.4 % (0.0-7.3); Platelet Count 273 K/mm3 (140-440); Red Blood Count 4.02 M/mm3 (3.65-5.03); Red Cell Distribution Width 13.2 % (13.2-15.2)
[2020-04-05 04:57] LABS: Calcium 9.3 mg/dL (8.4-10.2)
[2020-04-05] MEDS ORDERED: INSULIN REGULAR, HUMAN 100 UNIT/ML 3ML VIAL IV ONE (05:33)
[2020-04-05] MEDS ORDERED: INSULIN REGULAR, HUMAN 100 UNITS/1 ML ONE (06:00)
== END 2020-04-05 07:06 | disposition home or self-care (01) ==
LOC: ED 02:52
DX: E11.65 Type 2 diabetes mellitus with hyperglycemia (principal); K52.9 Noninfective gastroenteritis and colitis, unspecified; E87.6 Hypokalemia; R10.84 Generalized abdominal pain; Z98.890 Other specified postprocedural states; Z79.2 Long term (current) use of antibiotics; Z79.4 Long term (current) use of insulin; Z79.899 Other long term (current) drug therapy
CPT/HCPCS: 36415; 80048; 82805; 82962; 83690; 84703; 85025; 96361; 96374; 96375; 99283; J2405; J7030; J1815

== ENCOUNTER 2020-07-17 19:51 | Emergency (ER) | payer MEDICAID ==
[2020-07-17] MEDS ORDERED: FAMOTIDINE 20 MG/2 ML INJ IV ONE (20:36)
[2020-07-17] MEDS ORDERED: SODIUM CHLORIDE 0.9% 1000 ML 1,000 ML IV ONE ×2 (20:36)
[2020-07-17] MEDS ORDERED: DICYCLOMINE 20 MG/2 ML INJ IM ONE (20:36)
[2020-07-17] MEDS ORDERED: PROCHLORPERAZINE EDISYLATE 10 MG/2 ML VIAL IV ONE (20:36)
[2020-07-17 20:50] LABS: Basophils % (Auto) 0.4 % (0.0-1.8); Eosinophils % (Auto) 0.4 % (0.0-4.3); Hematocrit 38.5 % (30.3-42.9); Lymphocytes # (Auto) 1.3 K/mm3 (1.2-5.4); Lymphocytes % (Auto) 19.3 % (13.4-35.0); Mean Corpuscular HGB Conc 34 % (30-34); Mean Corpuscular Volume 88 fl (79-97); Monocytes # (Auto) 0.4 K/mm3 (0.0-0.8); Platelet Count 243 K/mm3 (140-440); Red Blood Count 4.38 M/mm3 (3.65-5.03); Red Cell Distribution Width 13.5 % (13.2-15.2)
[2020-07-17 21:11] LABS: Alanine Aminotransferase 9 units/L (7-56); Albumin 4.2 g/dL (3.9-5); BUN/Creatinine Ratio 9; Blood Urea Nitrogen 9 mg/dL (7-17); Calcium 9.3 mg/dL (8.4-10.2); Hemolysis Index 18
--- NOTE | 2020-07-17 22:48 | Event Note ---
ED Screening Note Date of service: 07/17/20 Time: 20:25 ED Screening Note: Patient is a 29-year-old -[place] female with a history of [id number] diabetes who presents to the ED with complaint of acute onset persistent intractable nausea, vomiting, diarrhea and epigastric pain for the last 12 hours. Patient states that she has not been able to eat or drink anything because of intractable nausea and vomiting. Patient states that the last meal she ate was about 24 hours ago and that it was a fish sandwich from a restaurant. Patient also complains of lightheadedness, generalized weakness lack of appetite. Patient denies dizziness, syncope, chest pain, shortness of breath, fever, chills, headache, dysuria, urinary frequency and urgency or vaginal bleeding and change in vision. initial assessment/diagnostic orders/clinical plan/treatment(s) is/are subject to change based on patients health status, clinical progression and re- assessment by fellow clinical providers in the ED. Further treatment and workup at subsequent clinical providers discretion. Patient/guardian urged not to elope from the ED as their condition may be serious if not clinically assessed and managed. Initial orders include: CBC, CMP, UA, hCG, normal saline 2 L IV bolus x1, Zofran and Pepcid
[2020-07-18 05:19] LABS: Bilirubin,Urine NEG (Negative); Blood,Urine NEG (Negative); Color,Urine Colorless (Yellow); Mucus,Urine FEW /HPF; Protein,Urine <15 mg/dL mg/dL (Negative); Urobilinogen,Urine < 2.0 mg/dL (<2.0)
[2020-07-18] MEDS ORDERED: SODIUM CHLORIDE 0.9% 1000 ML 1,000 ML ONE (05:23)
--- NOTE | 2020-07-18 06:22 | Emergency Department Report ---
ED General Adult HPI - General Chief complaint: Hyperglycemia Stated complaint: VOMITING/HIGH BLOOD SUGAR Time Seen by Provider: 07/18/20 06:08 Source: patient Mode of arrival: Ambulatory Limitations: No Limitations - History of Present Illness Initial comments: Patient is a 29-year-old diabetic female who presents emergency department for evaluation of mild burning epigastric pain associated with nausea and diarrhea since yesterday. Patient states the present time her abdominal pain is resolved. Patient denies fevers, denies dysuria. Patient does complain of loss of taste and smell. - Related Data Previous Rx's Medication Instructions Recorded Last Taken Type Vit-Fe Fumar-FA [ 1 tab PO QDAY #30 tablet 08/18/16 09/23/16 Rx Vitamin] Vit Calc,Iron,Folic 1 each PO DAILY #30 tablet 02/24/17 Unknown Rx [ Vitamins] Insulin Lispro [HumaLOG VIAL] 10 units SQ AC #5 vial 03/16/18 Unknown Rx Ferrous Sulfate [Feosol 325 MG tab] 325 mg PO BID #60 tablet 04/09/18 Unknown Rx Insulin Lispro [HumaLOG VIAL] See Protocol SQ AC #10 ml 04/09/18 Unknown Rx Insulin NPH, Human [NovoLIN N] 18 unit SUB-Q BIDDIAB 30 Days 04/09/18 Unknown Rx units metFORMIN [Glucophage] 850 mg PO BID #60 tablet 04/09/18 Unknown Rx Neomy/Polymyx B/Hc (Otic) Soln 4 drops AD TID 7 Days #1 bottle 01/07/19 Unknown Rx [Cortisporin (Otic) Soln] Acetaminophen/Codeine [Tylenol 1 tab PO Q8H PRN #9 tab 04/17/19 Unknown Rx /Codeine # 3 tab] Naproxen 500 mg PO Q12H PRN #12 tablet 11/11/19 Unknown Rx Ciprofloxacin HCl [Ciprofloxacin 500 mg PO Q12HR 7 Days #14 tab 01/24/20 Unknown Rx TAB] Fluconazole (Nf) [Diflucan TAB] 150 mg PO ONCE 1 Days #1 tablet 01/24/20 Unknown Rx Ondansetron [Zofran Odt] 4 mg PO Q6HR PRN #20 tab.rapdis 04/05/20 Unknown Rx Allergies Allergy/AdvReac Type Severity Reaction Status Date / Time No Known Allergies Allergy Verified 05/25/17 13:33 ED Review of Systems ROS: Stated complaint: VOMITING/HIGH BLOOD SUGAR Other details as noted in HPI ED Past Medical Hx - Past Medical History Hx Hypertension: No Hx Heart Attack/AMI: No Hx Congestive Heart Failure: No Hx Diabetes: Yes Hx Deep Vein Thrombosis: No Hx Pulmonary Embolism: No Hx GERD: No Hx Liver Disease: No Hx Renal Disease: No Hx Sickle Cell Disease: Yes (sickle cell trait) Hx Arthritis: No Hx Headaches / Migraines: No Hx Seizures: No Hx Kidney Stones: No Hx Asthma: No Hx COPD: No Hx Tuberculosis: No Hx Dementia: No Hx HIV: No Additional medical history: sickle cell trait - Surgical History Hx Coronary Stent: No Hx Open Heart Surgery: No Hx Pacemaker: No Hx Internal Defibrillator: No Hx Cholecystectomy: No Hx Appendectomy: No Hx Breast Surgery: No Additional Surgical History: x3 - Social History Smoking Status: Never Smoker - Medications Home Medications: Home Medications Medication Instructions Recorded Confirmed Last Taken Type Vit-Fe Fumar-FA [ 1 tab PO QDAY #30 tablet 08/18/16 05/08/18 09/23/16 Rx Vitamin] Vit Calc,Iron,Folic 1 each PO DAILY #30 tablet 02/24/17 05/08/18 Unknown Rx [ Vitamins] Insulin Lispro [HumaLOG VIAL] 10 units SQ AC #5 vial 03/16/18 05/08/18 Unknown Rx Ferrous Sulfate [Feosol 325 MG tab] 325 mg PO BID #60 tablet 04/09/18 05/08/18 Unknown Rx Insulin Lispro [HumaLOG VIAL] See Protocol SQ AC #10 ml 04/09/18 05/08/18 Unk nown Rx Insulin NPH, Human [NovoLIN N] 18 unit SUB-Q BIDDIAB 30 Days 04/09/18 05/08/18 Unknown Rx units metFORMIN [Glucophage] 850 mg PO BID #60 tablet 04/09/18 05/08/18 Unknown Rx Neomy/Polymyx B/Hc (Otic) Soln 4 drops AD TID 7 Days #1 bottle 01/07/19 Unknown Rx [Cortisporin (Otic) Soln] Acetaminophen/Codeine [Tylenol 1 tab PO Q8H PRN #9 tab 04/17/19 Unknown Rx /Codeine # 3 tab] Naproxen 500 mg PO Q12H PRN #12 tablet 11/11/19 Unknown Rx Ciprofloxacin HCl [Ciprofloxacin 500 mg PO Q12HR 7 Days #14 tab 01/24/20 Unknown Rx TAB] Fluconazole (Nf) [Diflucan TAB] 150 mg PO ONCE 1 Days #1 tablet 01/24/20 Unknown Rx Ondansetron [Zofran Odt] 4 mg PO Q6HR PRN #20 tab.rapdis 04/05/20 Unknown Rx ED Physical Exam - General Limitations: No Limitations ED Course Vital Signs 07/17/20 07/18/20 07/18/20 20:28 05:32 05:45 Temperature 97.3 F L Pulse Rate 95 H 89 Respiratory 18 11 L 18 Rate Blood Pressure 130/88 O2 Sat by Pulse 100 Oximetry 07/18/20 07/18/20 07/18/20 05:46 06:00 06:16 Temperature Pulse Rate 89 88 89 Respiratory 10 L 13 13 Rate Blood Pressure O2 Sat by Pulse 100 100 100 Oximetry 07/18/20 07/18/20 07/18/20 06:30 06:46 07:00 Temperature Pulse Rate 94 H 97 H 102 H Respiratory 11 L 14 13 Rate Blood Pressure 95/57 93/58 93/59 O2 Sat by Pulse 100 100 99 Oximetry - Reevaluation(s) Reevaluation #1: 07/18/20 09:07 Patient initially treated with IV normal saline 1 L x 3. Repeat blood glucose 410, given insulin 10 units regular IV x1. Patient given Maalox and Pepcid for ongoing epigastric discomfort. Reevaluation #2: 07/18/20 10:23 Repeat blood sugar under 300, abdomen soft nontender, patient states pain is resolved, denies complaints. ED Medical Decision Making - Lab Data Result diagrams: 07/17/20 20:37 07/17/20 20:37 Labs 07/17/20 07/17/20 07/17/20 20:37 20:37 20:37 WBC 6.7 RBC 4.38 Hgb 13.0 Hct 38.5 MCV 88 MCH 30 MCHC 34 RDW 13.5 Plt Count 243 Lymph % (Auto) 19.3 Cocke % (Auto) 6.0 Eos % (Auto) 0.4 Baso % (Auto) 0.4 Lymph # (Auto) 1.3 Cocke # (Auto) 0.4 Eos # (Auto) 0.0 Baso # (Auto) 0.0 Seg Neutrophils % 73.9 H Seg Neutrophils # 5.0 VBG pH Sodium 127 L Potassium 4.2 Chloride 89.9 L Carbon Dioxide 23 Anion Gap 18 BUN 9 Creatinine 1.0 Estimated GFR > 60 BUN/Creatinine Ratio 9 Glucose 809 H* POC Glucose Calcium 9.3 Total Bilirubin 1.70 H AST 11 ALT 9 Alkaline Phosphatase 97 Total Protein 7.7 Albumin 4.2 Albumin/Globulin Ratio 1.2 Lipase 11 L HCG, Qual Negative Urine Color Urine Turbidity Urine pH Ur Specific Maben Urine Protein Urine Glucose (UA) Urine Ketones Urine Blood Urine Nitrite Urine Bilirubin Urine Urobilinogen Ur Leukocyte Esterase Urine WBC (Auto) Urine RBC (Auto) U Epithel Cells (Auto) Urine Mucus Urine HCG, Qual 07/18/20 07/18/20 07/18/20 05:04 05:08 06:28 WBC RBC Hgb Hct MCV MCH MCHC RDW Plt Count Lymph % (Auto) Cocke % (Auto) Eos % (Auto) Baso % (Auto) Lymph # (Auto) Cocke # (Auto) Eos # (Auto) Baso # (Auto) Seg Neutrophils % Seg Neutrophils # VBG pH 7.315 L Sodium Potassium Chloride Carbon Dioxide Anion Gap BUN Creatinine Estimated GFR BUN/Creatinine Ratio Glucose POC Glucose > 600 H Calcium Total Bilirubin AST ALT Alkaline Phosphatase Total Protein Albumin Albumin/Globulin Ratio Lipase HCG, Qual Urine Color Colorless Urine Turbidity Clear Urine pH 6.0 Ur Specific Maben 1.026 Urine Protein <15 mg/dl Urine Glucose (UA) >=500 Urine Ketones Neg Urine Blood Neg Urine Nitrite Neg Urine Bilirubin Neg Urine Urobilinogen < 2.0 Ur Leukocyte Esterase Neg Urine WBC (Auto) 4.0 Urine RBC (Auto) 2.0 U Epithel Cells (Auto) 1.0 Urine Mucus Few Urine HCG, Qual 07/18/20 06:44 WBC RBC Hgb Hct MCV MCH MCHC RDW Plt Count Lymph % (Auto) Cocke % (Auto) Eos % (Auto) Baso % (Auto) Lymph # (Auto) Cocke # (Auto) Eos # (Auto) Baso # (Auto) Seg Neutrophils % Seg Neutrophils # VBG pH Sodium Potassium Chloride Carbon Dioxide Anion Gap BUN Creatinine Estimated GFR BUN/Creatinine Ratio Glucose POC Glucose Calcium Total Bilirubin AST ALT Alkaline Phosphatase Total Protein Albumin Albumin/Globulin Ratio Lipase HCG, Qual Urine Color Urine Turbidity Urine pH Ur Specific M[place] Urine Protein Urine Glucose (UA) Urine Ketones Urine Blood Urine Nitrite Urine Bilirubin Urine Urobilinogen Ur Leukocyte Esterase Urine WBC (Auto) Urine RBC (Auto) U Epithel Cells (Auto) Urine Mucus Urine HCG, Qual Negative Vital Signs 07/17/20 07/18/20 07/18/20 20:28 05:32 05:45 Temperature 97.3 F L Pulse Rate 95 H 89 Respiratory 18 11 L 18 Rate Blood Pressure 130/88 O2 Sat by Pulse 100 Oximetry 07/18/20 07/18/20 07/18/20 05:46 06:00 06:16 Temperature Pulse Rate 89 88 89 Respiratory 10 L 13 13 Rate Blood Pressure O2 Sat by Pulse 100 100 100 Oximetry 07/18/20 07/18/20 07/18/20 06:30 06:46 07:00 Temperature Pulse Rate 94 H 97 H 102 H Respiratory 11 L 14 13 Rate Blood Pressure 95/57 93/58 93/59 O2 Sat by Pulse 100 100 99 Oximetry Critical care attestation.: If time is entered above; I have spent that time in minutes in the direct care of this critically ill patient, excluding procedure time. ED Disposition Clinical Impression: Hyperglycemia, Abdominal pain Disposition: DC-01 TO HOME OR SELFCARE Is pt being admited?: No Condition: Stable Instructions: Abdominal Pain, Adult, Hyperglycemia, [id number] Additional Instructions: Follow-up with primary care doctor 1 to 2 days for reevaluation. Return to the emergency department for worsening symptoms. Please note you may benefit from outpatient COVID-19 testing. Referrals: [facility] [Other] - 3-5 Days Forms: Work/School Release Form(ED)
[2020-07-18 06:58] LABS: HCG Qualitative,Urine Negative (Negative)
--- NOTE | 2020-07-18 07:17 | XRay Report ---
CHEST 1 VIEW 07/18/2020 6:41 AM INDICATION / CLINICAL INFORMATION: Cough. COMPARISON: None available. FINDINGS: SUPPORT DEVICES: None. HEART / MEDIASTINUM: The heart size and pulmonary vasculature are normal. LUNGS / PLEURA: No significant pulmonary or pleural abnormality. No pneumothorax. ADDITIONAL FINDINGS: No significant additional findings. IMPRESSION: No acute findings. Signer Name: Shayne Holliday MD Signed: 07/18/2020 7:12 AM Workstation Name: [id number]
[2020-07-18 07:18] VITALS: BP 93/59
[2020-07-18] MEDS ORDERED: SODIUM CHLORIDE 0.9% 1000 ML 1,000 ML IV ONE (07:30)
[2020-07-18] MEDS ORDERED: INSULIN REGULAR, HUMAN 100 UNITS/1 ML IV ONE (08:29)
[2020-07-18] MEDS ORDERED: FAMOTIDINE 20 MG TAB PO ONE (09:07)
[2020-07-18] MEDS ORDERED: ALUM-MAG HYDROXIDE-SIMETHICONE 200-200-20MG/5ML ORAL LIQD 30 ML PO ONE (09:07)
== END 2020-07-18 10:35 | disposition home or self-care (01) ==
LOC: ED 19:51
DX: E11.65 Type 2 diabetes mellitus with hyperglycemia (principal); R10.13 Epigastric pain; Z98.890 Other specified postprocedural states; Z79.4 Long term (current) use of insulin; Z79.899 Other long term (current) drug therapy
CPT/HCPCS: 36415; 71045; 80053; 81001; 81025; 82805; 82962; 83690; 84703; 85025; 96361; 96374; 99284; J7030; J1815

== ENCOUNTER 2021-06-01 16:25 | Emergency (ER) | payer MEDICAID ==
[2021-06-01] MEDS ORDERED: SODIUM CHLORIDE 0.9% 1000 ML 2,000 ML IV ONE (17:13)
[2021-06-01] MEDS ORDERED: ONDANSETRON 4 MG/2 ML INJ IV ONE (17:13)
[2021-06-01 17:35] LABS: Basophils % (Auto) 0.8 % (0.0-1.8); Eosinophils # (Auto) 0.1 K/mm3 (0.0-0.4); Eosinophils % (Auto) 1.9 % (0.0-4.3); Hematocrit 31.9 % (30.3-42.9); Hemoglobin 11.2 gm/dl (10.1-14.3); Lymphocytes # (Auto) 1.8 K/mm3 (1.2-5.4); Lymphocytes % (Auto) 29.8 % (13.4-35.0); Mean Corpuscular HGB Conc 35 % (30-34); Mean Corpuscular Volume 85 fl (79-97); Monocytes # (Auto) 0.4 K/mm3 (0.0-0.8); Monocytes % (Auto) 6.3 % (0.0-7.3); Platelet Count 205 K/mm3 (140-440); Red Blood Count 3.74 M/mm3 (3.65-5.03)
[2021-06-01] MEDS ORDERED: INSULIN REGULAR, HUMAN 100 UNITS/1 ML IV ONE (17:40)
[2021-06-01 17:52] VITALS: BP 98/59
[2021-06-01 17:54] LABS: Creatine Kinase MB 1.8 ng/mL (0.0-4.0)
[2021-06-01 17:56] LABS: Alanine Aminotransferase 9 units/L (7-56); Albumin 3.8 g/dL (3.9-5); BUN/Creatinine Ratio 8; Blood Urea Nitrogen 6 mg/dL (7-17); Calcium 8.8 mg/dL (8.4-10.2); Hemolysis Index 5
[2021-06-01 18:21] LABS: C-Reactive Protein < 0.30 mg/dL (0.00-1.30)
[2021-06-01 19:41] LABS: Amphetamine Screen,Urine Negative; Benzodiazepines Screen,Urine Negative; Cocaine Screen,Urine Negative; Methadone Screen,Urine Negative; Opiate Screen,Urine Negative
[2021-06-01 19:57] LABS: Cannabinoid Screen,Urine Positive
--- NOTE | 2021-06-01 19:57 | Emergency Department Report ---
ED General Adult HPI - General Chief complaint: Hyperglycemia Stated complaint: VOMITTING/SUGAR UP Time Seen by Provider: 06/01/21 17:11 Source: patient Mode of arrival: Ambulatory Limitations: No Limitations - History of Present Illness Initial comments: States glu was "high" yesterday and vomiting. Abd pain. BS in triage = 437 -: Gradual, days(s) Consistency: constant Improves with: none Worsens with: none Treatments Prior to Arrival: none - Related Data Previous Rx's Medication Instructions Recorded Last Taken Type Vit-Fe Fumar-FA [ 1 tab PO QDAY #30 tablet 08/18/16 09/23/16 Rx Vitamin] Vit Calc,Iron,Folic 1 each PO DAILY #30 tablet 02/24/17 Unknown Rx [ Vitamins] Insulin Lispro [HumaLOG VIAL] 10 units SQ AC #5 vial 03/16/18 Unknown Rx Ferrous Sulfate [Feosol 325 MG tab] 325 mg PO BID #60 tablet 04/09/18 Unknown Rx Insulin Lispro [HumaLOG VIAL] See Protocol SQ AC #10 ml 04/09/18 Unknown Rx Insulin NPH, Human [NovoLIN N] 18 unit SUB-Q BIDDIAB 30 Days 04/09/18 Unknown Rx units metFORMIN [Glucophage] 850 mg PO BID #60 tablet 04/09/18 Unknown Rx Neomy/Polymyx B/Hc (Otic) Soln 4 drops AD TID 7 Days #1 bottle 01/07/19 Unknown Rx [Cortisporin (Otic) Soln] Acetaminophen/Codeine [Tylenol 1 tab PO Q8H PRN #9 tab 04/17/19 Unknown Rx /Codeine # 3 tab] Naproxen 500 mg PO Q12H PRN #12 tablet 11/11/19 Unknown Rx Ciprofloxacin HCl [Ciprofloxacin 500 mg PO Q12HR 7 Days #14 tab 01/24/20 Unknown Rx TAB] Fluconazole (Nf) [Diflucan TAB] 150 mg PO ONCE 1 Days #1 tablet 01/24/20 Unknown Rx Ondansetron [Zofran Odt] 4 mg PO Q6HR PRN #20 tab.rapdis 04/05/20 Unknown Rx Allergies Allergy/AdvReac Type Severity Reaction Status Date / Time No Known Allergies Allergy Verified 08/18/16 13:33 ED Review of Systems ROS: Stated complaint: VOMITTING/SUGAR UP Other details as noted in HPI Constitutional: denies: chills, fever Eyes: denies: eye pain, eye discharge, vision change ENT: denies: ear pain, throat pain Respiratory: denies: cough, shortness of breath, wheezing Cardiovascular: denies: chest pain, palpitations Endocrine: no symptoms reported Gastrointestinal: denies: abdominal pain, nausea, diarrhea Genitourinary: denies: urgency, dysuria, discharge Musculoskeletal: denies: back pain, joint swelling, arthralgia Skin: denies: rash, lesions Neurological: denies: headache, weakness, paresthesias Psychiatric: denies: anxiety, depression Hematological/Lymphatic: denies: easy bleeding, easy bruising ED Past Medical Hx - Past Medical History Hx Hypertension: No Hx Heart Attack/AMI: No Hx Congestive Heart Failure: No Hx Diabetes: Yes Hx Deep Vein Thrombosis: No Hx Pulmonary Embolism: No Hx GERD: No Hx Liver Disease: No Hx Renal Disease: No Hx Sickle Cell Disease: Yes (sickle cell trait) Hx Arthritis: No Hx Headaches / Migraines: No Hx Seizures: No Hx Kidney Stones: No Hx Asthma: No Hx COPD: No Hx Tuberculosis: No Hx Dementia: No Hx HIV: No Additional medical history: sickle cell trait - Surgical History Hx Coronary Stent: No Hx Open Heart Surgery: No Hx Pacemaker: No Hx Internal Defibrillator: No Hx Cholecystectomy: No Hx Appendectomy: No Hx Breast Surgery: No Additional Surgical History: x3 - Social History Smoking Status: Never Smoker - Medications Home Medications: Home Medications Medication Instructions Recorded Confirmed Last Taken Type Vit-Fe Fumar-FA [ 1 tab PO QDAY #30 tablet 08/18/16 05/08/18 09/23/16 Rx Vitamin] Vit Calc,Iron,Folic 1 each PO DAILY #30 tablet 02/24/17 05/08/18 Unknown Rx [ Vitamins] Insulin Lispro [HumaLOG VIAL] 10 units SQ AC #5 vial 03/16/18 05/08/18 Unknown Rx Ferrous Sulfate [Feosol 325 MG tab] 325 mg PO BID #60 tablet 04/09/18 05/08/18 Unknown Rx Insulin Lispro [HumaLOG VIAL] See Protocol SQ AC #10 ml 04/09/18 05/08/18 Unknown Rx Insulin NPH, Human [NovoLIN N] 18 unit SUB-Q BIDDIAB 30 Days 04/09/18 05/08/18 Unknown Rx units metFORMIN [Glucophage] 850 mg PO BID #60 tablet 04/09/18 05/08/18 Unknown Rx Neomy/Polymyx B/Hc (Otic) Soln 4 drops AD TID 7 Days #1 bottle 01/07/19 Unknown Rx [Cortisporin (Otic) Soln] Acetaminophen/Codeine [Tylenol 1 tab PO Q8H PRN #9 tab 04/17/19 Unknown Rx /Codeine # 3 tab] Naproxen 500 mg PO Q12H PRN #12 tablet 11/11/19 Unknown Rx Ciprofloxacin HCl [Ciprofloxacin 500 mg PO Q12HR 7 Days #14 tab 01/24/20 Unknown Rx TAB] Fluconazole (Nf) [Diflucan TAB] 150 mg PO ONCE 1 Days #1 tablet 01/24/20 Unknown Rx Ondansetron [Zofran Odt] 4 mg PO Q6HR PRN #20 tab.rapdis 04/05/20 Unknown Rx ED Physical Exam - General Limitations: No Limitations General appearance: alert, in no apparent distress - Head Head exam: Present: atraumatic, normocephalic - Eye Eye exam: Present: normal appearance - ENT ENT exam: Present: mucous membranes moist - Neck Neck exam: Present: normal inspection - Respiratory Respiratory exam: Present: normal lung sounds bilaterally. Absent: respiratory distress - Cardiovascular Cardiovascular Exam: Present: regular rate, normal rhythm. Absent: systolic murmur, diastolic murmur, rubs, gallop - GI/Abdominal GI/Abdominal exam: Present: soft, normal bowel sounds - Extremities Exam Extremities exam: Present: normal inspection - Back Exam Back exam: Present: normal inspection - Neurological Exam Neurological exam: Present: alert, oriented X3 - Psychiatric Psychiatric exam: Present: normal affect, normal mood - Skin Skin exam: Present: warm, dry, intact, normal color. Absent: rash ED Course Vital Signs 06/01/21 06/01/21 06/01/21 17:09 17:14 17:40 Temperature 98.4 F Pulse Rate 77 83 Respiratory 18 8 L Rate Blood Pressure 105/71 O2 Sat by Pulse 100 100 Oximetry 06/01/21 17:45 Temperature Pulse Rate 74 Respiratory 11 L Rate Blood Pressure 98/59 O2 Sat by Pulse Oximetry - Reevaluation(s) Reevaluation #1: 06/01/21 19:56 FLUIDS AND INSULIN GIVEN bgl IS 100S BEFORE d.C ED Medical Decision Making - Lab Data Result diagrams: 06/01/21 17:20 06/01/21 17:20 Critical care attestation.: If time is entered above; I have spent that time in minutes in the direct care of this critically ill patient, excluding procedure time. ED Disposition Clinical Impression: Hyperglycemia Disposition: 01 HOME / SELF CARE / HOMELESS Is pt being admited?: No Does the pt Need Aspirin: No Condition: Stable Instructions: Hyperglycemia, [id number]
[2021-06-01 20:25] LABS: Bilirubin,Urine Negative (Negative); Color,Urine Colorless (Yellow)
[2021-06-01 20:26] LABS: Blood,Urine Trace (Negative); Urobilinogen,Urine < 2.0 mg/dL (<2.0)
== END 2021-06-01 20:25 | disposition home or self-care (01) ==
LOC: ED 16:25
DX: E11.65 Type 2 diabetes mellitus with hyperglycemia (principal); Z79.899 Other long term (current) drug therapy
CPT/HCPCS: 36415; 80053; 80307; 81001; 82010; 82550; 82553; 82962; 85025; 86140; 96361; 96374; 96375; 99283; J2405; J7030; Q0162; Q9967; J1815